=== PATIENT | male | born 1955 | race Caucasian/White ===

== ENCOUNTER 2018-08-23 23:26 | Emergency (ER) | payer OTHER ==
[~2018-08-23] VITALS: Ht 165.1 cm; Wt 86.2 kg
[~2018-08-23 23:26] MED LIST: ASPI325 PO; ASPI81CH PO; ATOR10 PO; ATOR40TA PO; ATOR80 PO; Amoxicillin500 M1 PO; CARV3.125 PO; CLAR500 PO; CLOP75 PO; FISH1000 PO; IBUP600 PO; LEVSOD50 PO; LISI5 PO; MEDICAL MARIJUANA; MEDICAL MARIJUANA INH; MILK THISTLE140 MG PO; PANT40 PO; PROP10 PO; PROP80ER PO
[2018-08-23 23:47] LABS: BASOPHILS ABSOLUTE AUTO 0.04 K/mm3 (0.00-0.23); BASOPHILS PERCENT AUTO 0 % (0-2); EOSINOPHILS ABSOLUTE AUTO 0.23 K/mm3 (0.00-0.68); EOSINOPHILS PERCENT AUTO 2 % (0-6); Hematocrit 53.3 % (37.0-53.0); Hemoglobin 17.2 g/dL (13.5-17.5); Mean Corpuscular HGB 28.6 pg (26.0-34.0); Mean Corpuscular HGB Conc 32.3 g/dL (31.5-36.5); Mean Corpuscular Volume 89 fL (80-100); Mean Platelet Volume 8.6 fL (9.1-12.4); Platelet Count 459 K/mm3 (150-400); RDW Coefficient Variation 14.8 % (11.7-14.2); RDW Standard Deviation 48.6 fL (35.1-46.3); Red Blood Cell Count 6.01 M/mm3 (4.30-5.90); White Blood Cell Count 11.28 K/mm3 (4.00-11.30)
[2018-08-23 23:49] LABS: IMMATURE GRAN ABSOLUTE AUTO 0.06 K/mm3 (0.00-0.10); IMMATURE GRAN PERCENT AUTO 1 % (0-1); LYMPHOCYTES PERCENT AUTO 36 % (21-46); MONOCYTES PERCENT AUTO 6 % (4-13); NEUTROPHILS ABSOLUTE AUTO 6.15 K/mm3 (1.96-9.15); NEUTROPHILS PERCENT AUTO 55 % (41-73)
[2018-08-24 00:07] LABS: Albumin, Blood 4.1 g/dL (3.4-5.0); Bilirubin, Total 0.5 mg/dL (0.1-1.0); Bun/Creatinine Ratio 16.8 (12.0-20.0); Calcium, Blood 8.5 mg/dL (8.5-10.1); Creatinine, Blood 1.31 mg/dL (0.60-1.20); Globulin, Blood 4.1 g/dL (2.2-4.0); Potassium, Blood 4.1 mmol/L (3.5-5.5); Total Protein, Blood 8.2 g/dL (6.4-8.2)
== END 2018-08-24 01:56 | disposition home or self-care (01) ==
LOC: ER 23:26
PROVIDERS: Emergency Medicine
DX: R10.11 Right upper quadrant pain (principal); Z91.030 Bee allergy status; Z88.5 Allergy status to narcotic agent; Z79.899 Other long term (current) drug therapy; Z79.82 Long term (current) use of aspirin; E03.9 Hypothyroidism, unspecified; I10 Essential (primary) hypertension; F17.200 Nicotine dependence, unspecified, uncomplicated
CPT/HCPCS: 74176; 80053; 83690; 85025; 99284-25

== ENCOUNTER 2018-08-28 22:56 | Emergency (ER) | payer OTHER ==
[~2018-08-28] VITALS: Ht 167.6 cm; Wt 74.8 kg
[2018-08-28 23:19] LABS: BASOPHILS ABSOLUTE AUTO 0.07 K/mm3 (0.00-0.23); BASOPHILS PERCENT AUTO 1 % (0-2); EOSINOPHILS ABSOLUTE AUTO 0.11 K/mm3 (0.00-0.68); EOSINOPHILS PERCENT AUTO 1 % (0-6); Hemoglobin 18.3 g/dL (13.5-17.5); IMMATURE GRAN ABSOLUTE AUTO 0.08 K/mm3 (0.00-0.10); IMMATURE GRAN PERCENT AUTO 1 % (0-1); LYMPHOCYTES ABSOLUTE AUTO 3.09 K/mm3 (0.84-5.20); LYMPHOCYTES PERCENT AUTO 24 % (21-46); MONOCYTES ABSOLUTE AUTO 0.81 K/mm3 (0.16-1.47); MONOCYTES PERCENT AUTO 6 % (4-13); Mean Corpuscular HGB 28.7 pg (26.0-34.0); Mean Corpuscular HGB Conc 33.9 g/dL (31.5-36.5); Mean Platelet Volume 9.1 fL (9.1-12.4); NEUTROPHILS ABSOLUTE AUTO 8.66 K/mm3 (1.96-9.15); NEUTROPHILS PERCENT AUTO 68 % (41-73); Platelet Count 503 K/mm3 (150-400); RDW Coefficient Variation 14.8 % (11.7-14.2); RDW Standard Deviation 45.1 fL (35.1-46.3); Red Blood Cell Count 6.37 M/mm3 (4.30-5.90); White Blood Cell Count 12.82 K/mm3 (4.00-11.30)
[2018-08-28 23:21] LABS: Mean Corpuscular Volume 85 fL (80-100)
[2018-08-28 23:35] LABS: Alanine Aminotransfer (ALT/SGP 24 U/L (12-78); Albumin, Blood 4.2 g/dL (3.4-5.0); Albumin/Globulin Ratio 1.1 (0.8-1.8); Alk Phos 140 U/L (50-136); Anion Gap 13 mmol/L (6-16); Aspartate Aminotrans (AST/SGOT 19 U/L (12-37); Bilirubin, Total 0.5 mg/dL (0.1-1.0); Blood Urea Nitrogen 29 mg/dL (8-24); Bun/Creatinine Ratio 19.2 (12.0-20.0); CO2, Blood 21 mmol/L (21-32); Calcium, Blood 8.9 mg/dL (8.5-10.1); Chloride, Blood 100 mmol/L (98-108); Creatinine, Blood 1.51 mg/dL (0.60-1.20); Globulin, Blood 3.7 g/dL (2.2-4.0); Glomerular Filtration Rate 50 (60-); Glucose, Blood 120 mg/dL (70-99); Potassium, Blood 3.5 mmol/L (3.5-5.5); Sodium, Blood 134 mmol/L (136-145); Total Protein, Blood 7.9 g/dL (6.4-8.2); Troponin I <0.015 ng/mL (0.000-0.040)
[2018-08-29] MEDS ORDERED: ONDA4ODT MM (00:23)
== END 2018-08-29 00:41 | disposition home or self-care (01) ==
LOC: ER 22:56
PROVIDERS: Physician Assistant
DX: K52.9 Noninfective gastroenteritis and colitis, unspecified (principal); Z91.030 Bee allergy status; Z88.5 Allergy status to narcotic agent; Z79.899 Other long term (current) drug therapy; Z79.82 Long term (current) use of aspirin; E03.9 Hypothyroidism, unspecified; I10 Essential (primary) hypertension; F17.200 Nicotine dependence, unspecified, uncomplicated
CPT/HCPCS: 36415; 80053; 83690; 84484; 85025; 93005; 93010; 96361; 96374; 96375; 99284-25; J1170; J2405; J2550; J7030

== ENCOUNTER 2018-11-10 06:59 | Inpatient (IN) | payer OTHER ==
[~2018-11-10] VITALS: Ht 165.1 cm; Wt 82.0 kg
[~2018-11-10 06:59] MED LIST changes: +FISH OIL; +LEVSOD112 PO; +MILK THISTLE; +ONDA4ODT MM; +VICODIN 5-3001 EACH PO
--- NOTE | 2018-11-10 09:09 | NUR ---
History, Chart, Medications and Allergies reviewed before start of procedure. Patient confirms NPO status and agrees with scheduled surgery. Patient States Post-Procedure ride home has been arranged.
--- NOTE | 2018-11-10 09:18 | NUR ---
BILAT HEARING AIDES AND RING PLACED IN BAGGY AND INTO PT PANT POCKET, ALL BELONGINGS UNDER GURNEY.
--- NOTE | 2018-11-10 09:30 | NUR ---
STUDENT NURSE WORKING WITH PATIENT, AGREE WITH HER CHARTING ON PATEINT.
--- NOTE | 2018-11-10 13:22 | NUR ---
1318 ASSUMED CARE FROM PACU/FRANCY JAMES RN. PT SLEEPY AFTER RECEIVING ATIVAN 1MG IVP PER ORDERS. PT AROUSABLE TO NAME. PT BROUGHT OVER TO STEP DOWN UNIT VIA [facility]. CONTINUE TO MONITOR AND DISCHARGE HOME WHEN STABLE. X4 ABD DRESSINGS WITH SOME SMALL AMT OF OOZING NOTED TO SITES. ABD SOFT TO PALPATE.
[2018-11-10 14:10] LABS: Hematocrit 36.5 % (37.0-53.0); Hemoglobin 11.5 g/dL (13.5-17.5)
--- NOTE | 2018-11-10 14:14 | NUR ---
PT SLEEPY BUT RESTLESS AT TIMES. RE-DIRECTS EASILY. NEW IV STARTED, LR BOLUS GIVEN. BP CONTINUE TO BE LOW, AWAITING FOR H/H RESULTS.
[2018-11-10 15:21] LABS: Hematocrit 31.7 % (37.0-53.0); Hemoglobin 9.9 g/dL (13.5-17.5)
--- NOTE | 2018-11-10 15:41 | NUR ---
[address] HODGE WITH H/H LAB RESULTS. NEW ORDERS TO CONTINUE WITH 1 LITER LR AND GIVE EPHEDRINE 12.5MG IVP FOR LOW BP. PT CONTINUES TO BE RESTLESS AT TIMES, THRASHING AROUND IN BED TO FIND A COMFORTABLE POSITION. CONTINUES TO HAVE RUQ PAIN AND INCREASES WITH MOVEMENT. 1440 DR HODGE AT BEDSIDE TO RE-EVALUATE PT. DR MENDEZ, ANESTHESIOLOGIST AT BEDSIDE. VERBAL ORDERS TO RE-DRAW H/H, TROPONIN AND EKG. WILL TRANSFER PT TO ICU AND AWAIT FOR LAB RESULTS. 1516 TRANSFER PT TO ICU 2 VIA [facility]. LAB RESULTS CALLED TO DR HODGE. PER DR HODGE, WILL TAKE PT BACK TO OR. OR STAFF NOTIFIED AND FOOD ASSEMBLER KITCHEN.
--- NOTE | 2018-11-10 16:25 | NUR ---
11/10/18 1625 Trent Burleson PT BROUGHT TO THE OR R/T RE-BLEED POST OP EMERGENCY. IV IN LT FA INFILTRATED. SECOND IV 18G WAS STARTED BY Brook BOSWELL CUT OFF WORKER IN RIGHT WRIST. PT WAS THRASHING ABOUT PRIOR TO DR SIERRA INTUBATING PT. PT DID NOT RECIEVED ANY PRE OP ANTIBIOTS AND THIS WAS CONFIRMED BY DR HODGE. STATING ANTIBIOTIS WERE NOT INDICATED.
--- NOTE | 2018-11-10 16:40 | NUR ---
ADMISSION NURSING SUMMARY PATIENT ADMITTED FROM PACU AT 1528 FOLLOWING LAP NORM W/4 LAP SITES. PATIENT CONFUSED, THRASHING, FOLLOWS COMMANDS INTERMITTENTLY. HYPOTENSIVE, BP 70'S/30'S, PACU GAVE LR 1L PRIOR TO ARRIVAL. STARTED NS BOLUS FOR 1L WITH PRESSURE BAG. H&H DROPPING. PATIENT TAKEN BACK TO SURGERY WITH DR. HODGE FOR SUSPECTED INTERNAL BLEEDING. PATIENT WAS IN ICU FOR 20 MINUTES BEFORE TAKEN BACK TO SURGERY.
--- NOTE | 2018-11-10 17:19 | NUR ---
Mother of patient, Matilda [phone], notified of patient being in ICU. Friend Norm also called [phone]. He will go by and talk to the mother and bring her to see patient tomorrow.
[2018-11-10 17:49] LABS: Hematocrit 24.5 % (37.0-53.0); Hemoglobin 7.3 g/dL (13.5-17.5); Mean Corpuscular HGB 28.6 pg (26.0-34.0); Mean Corpuscular HGB Conc 29.8 g/dL (31.5-36.5); Mean Platelet Volume 9.1 fL (9.1-12.4); Platelet Count 252 K/mm3 (150-400); RDW Coefficient Variation 16.1 % (11.7-14.2); RDW Standard Deviation 56.7 fL (35.1-46.3); Red Blood Cell Count 2.55 M/mm3 (4.30-5.90); White Blood Cell Count 19.59 K/mm3 (4.00-11.30)
[2018-11-10 17:52] LABS: Mean Corpuscular Volume 96 fL (80-100)
--- NOTE | 2018-11-10 18:09 | NUR ---
DR. BAKER AT BEDSIDE FOR EVALUATION.
[2018-11-10 18:10] LABS: BAND PERCENT MAN 21 % (0-8); BASOPHILS ABSOLUTE MAN 0.19 K/mm3 (0.00-0.23); BASOPHILS PERCENT MAN 1 % (0-2); EOSINOPHILS PERCENT MAN 0 % (0-6); LYMPHOCYTES ABSOLUTE MAN 0.78 K/mm3 (0.84-5.20); LYMPHOCYTES PERCENT MAN 4 % (21-46); MONOCYTES ABSOLUTE MAN 1.56 K/mm3 (0.16-1.47); MONOCYTES PERCENT MAN 8 % (4-13); NEUTROPHILS ABSOLUTE MAN 17.04 K/mm3 (1.96-9.15); SEG NEUTROPHILS PERCENT MAN 66 % (41-73); TOTAL CELLS COUNTED 100
--- NOTE | 2018-11-10 18:31 | NUR ---
CALLED DR. HODGE RE: HIGH BREANNE OUTPUT = 420 BLOOD DRAINAGE SINCE ARRIVAL TO ICU AT 1650. NO NEW ORDERS AT THIS TIME. 2ND UNIT OF PRBC'S STARTED AT 150 ML/HR. VSS. PROPOFOL STARTED. OG PLACED AND CONFIRMED. AWAITING CXR FOR INTUBATION TUBE AND OG PLACEMENT CONFIRMATION.
--- NOTE | 2018-11-10 19:57 | NUR ---
UPDATE TO BOTH CANDY HODGE AND OLIVIA PT BLOOD LOSS FROM BREANNE AT 90ML Q 2-3 MINUTES, DRS UPDATED ON BLOOD LOSS AND HYPOTENSION. ORDERS FOR ADDITIONAL BLOOD PRODUCTS OBTAINED. PER DR HODGE, REPORTS PT TOOK PLAVIX THIS AM AND THAT IS THE CAUSE OF THE BLEEDING. SEE ORDERS.
[2018-11-10 20:13] LABS: Hematocrit 37.1 % (37.0-53.0); Hemoglobin 11.8 g/dL (13.5-17.5); Mean Corpuscular HGB 29.8 pg (26.0-34.0); Mean Corpuscular HGB Conc 31.8 g/dL (31.5-36.5); Mean Corpuscular Volume 94 fL (80-100); Mean Platelet Volume 9.2 fL (9.1-12.4); Platelet Count 263 K/mm3 (150-400); RDW Coefficient Variation 15.6 % (11.7-14.2); RDW Standard Deviation 53.4 fL (35.1-46.3); Red Blood Cell Count 3.96 M/mm3 (4.30-5.90); White Blood Cell Count 22.56 K/mm3 (4.00-11.30)
[2018-11-10 20:32] LABS: BAND PERCENT MAN 12 % (0-8); BASOPHILS PERCENT MAN 0 % (0-2); EOSINOPHILS PERCENT MAN 0 % (0-6); LYMPHOCYTES ABSOLUTE MAN 0.67 K/mm3 (0.84-5.20); LYMPHOCYTES PERCENT MAN 3 % (21-46); MONOCYTES ABSOLUTE MAN 0.45 K/mm3 (0.16-1.47); MONOCYTES PERCENT MAN 2 % (4-13); NEUTROPHILS ABSOLUTE MAN 21.43 K/mm3 (1.96-9.15); SEG NEUTROPHILS PERCENT MAN 83 % (41-73); TOTAL CELLS COUNTED 100
[2018-11-10 21:09] LABS: PCO2 Arterial 40.7 mmHg (35-45); PO2 Arterial 104 mmHg (80-100); pH Blood Arterial 7.27 (7.35-7.45)
--- NOTE | 2018-11-10 22:33 | NUR ---
ASSUMED CARE PT ON VENT AC 14, VT 500, PEEP 4.5, AND FIO2 30%. CURRENT GTTS; 150ML/HR, PROPOFOL AT 10MCG/KG/MIN, AND 2ND UNIT OF PRBC INFUSING. PT WAS HEMODYNAMICALLY UNSTABLE DUE TO INCREASED BLEEDING FROM BREANNE; CURRENTLY AT 855ML OUT OF BRIGHT RED BLOOD. XOCHITL GARCIA ON PHONE TO DR. HODGE AND WILL UPDATE DR. BAKER.
--- NOTE | 2018-11-10 22:43 | NUR ---
UPDATE PT IS ON 4TH UNIT OF PRBC, AND HAS HAD 1 FFP, AND 1 PLATLET. CURRENT GTTS: PROPOFOL AT 20MCG/KG/MIN, PRECEDEX ADDED AT 0.2 AND CURRENTLY AT 0.4, ZOYSYN RUNNING, 2ND ALBUMIN AT 100ML/HR, AND NS AT 150ML/HR. TOTAL DRAINAGE FROM BREANNE SINCE ARRIVAL TO ICU FROM OR 1165ML OF BRIGHT RED BLOOD. PT IS CURRENTLY SAS OF 3. PT IS ON VENT AC 12, VT 500ML, PEEP 5, AND FIO2 30%.
[2018-11-11 01:31] LABS: BASOPHILS PERCENT AUTO 0 % (0-2); EOSINOPHILS PERCENT AUTO 0 % (0-6); Hematocrit 29.6 % (37.0-53.0); Hemoglobin 9.7 g/dL (13.5-17.5); IMMATURE GRAN ABSOLUTE AUTO 0.08 K/mm3 (0.00-0.10); IMMATURE GRAN PERCENT AUTO 1 % (0-1); LYMPHOCYTES PERCENT AUTO 4 % (21-46); MONOCYTES ABSOLUTE AUTO 0.59 K/mm3 (0.16-1.47); MONOCYTES PERCENT AUTO 4 % (4-13); Mean Corpuscular HGB Conc 32.8 g/dL (31.5-36.5); Mean Corpuscular Volume 92 fL (80-100); Mean Platelet Volume 9.3 fL (9.1-12.4); NEUTROPHILS ABSOLUTE AUTO 12.69 K/mm3 (1.96-9.15); NEUTROPHILS PERCENT AUTO 92 % (41-73); Platelet Count 193 K/mm3 (150-400); RDW Coefficient Variation 15.5 % (11.7-14.2); RDW Standard Deviation 52.3 fL (35.1-46.3); Red Blood Cell Count 3.23 M/mm3 (4.30-5.90); White Blood Cell Count 13.86 K/mm3 (4.00-11.30)
[2018-11-11 03:52] LABS: BASOPHILS ABSOLUTE AUTO 0.01 K/mm3 (0.00-0.23); BASOPHILS PERCENT AUTO 0 % (0-2); EOSINOPHILS PERCENT AUTO 0 % (0-6); Hematocrit 29.8 % (37.0-53.0); Hemoglobin 9.9 g/dL (13.5-17.5); IMMATURE GRAN ABSOLUTE AUTO 0.04 K/mm3 (0.00-0.10); IMMATURE GRAN PERCENT AUTO 0 % (0-1); LYMPHOCYTES ABSOLUTE AUTO 0.56 K/mm3 (0.84-5.20); LYMPHOCYTES PERCENT AUTO 4 % (21-46); MONOCYTES ABSOLUTE AUTO 0.59 K/mm3 (0.16-1.47); MONOCYTES PERCENT AUTO 4 % (4-13); Mean Corpuscular HGB 30.5 pg (26.0-34.0); Mean Corpuscular HGB Conc 33.2 g/dL (31.5-36.5); Mean Corpuscular Volume 92 fL (80-100); Mean Platelet Volume 9.4 fL (9.1-12.4); NEUTROPHILS ABSOLUTE AUTO 12.21 K/mm3 (1.96-9.15); NEUTROPHILS PERCENT AUTO 91 % (41-73); Platelet Count 188 K/mm3 (150-400); RDW Coefficient Variation 15.6 % (11.7-14.2); RDW Standard Deviation 52.1 fL (35.1-46.3); Red Blood Cell Count 3.25 M/mm3 (4.30-5.90); White Blood Cell Count 13.41 K/mm3 (4.00-11.30)
[2018-11-11 04:25] LABS: Alanine Aminotransfer (ALT/SGP 147 U/L (12-78); Albumin/Globulin Ratio 1.5 (0.8-1.8); Alk Phos 96 U/L (50-136); Anion Gap 7 mmol/L (6-16); Aspartate Aminotrans (AST/SGOT 123 U/L (12-37); Bilirubin, Total 1.4 mg/dL (0.1-1.0); Blood Urea Nitrogen 22 mg/dL (8-24); Bun/Creatinine Ratio 19.6 (12.0-20.0); CO2, Blood 22 mmol/L (21-32); Chloride, Blood 113 mmol/L (98-108); Creatinine, Blood 1.12 mg/dL (0.60-1.20); Glomerular Filtration Rate >60 (60-); Glucose, Blood 136 mg/dL (70-99); Potassium, Blood 4.8 mmol/L (3.5-5.5); Sodium, Blood 142 mmol/L (136-145); Troponin I 0.017 ng/mL (0.000-0.040)
[2018-11-11 04:56] LABS: Calcium, Blood 6.6 mg/dL (8.5-10.1)
--- NOTE | 2018-11-11 06:35 | NUR ---
SHIFT SUMMARY PT IS ON VENT AC 14, VT 500, PEEP 5, AND FIO2 30%. CURRENT GTTS: PROPOFOL 25MCG/KG/MIN, PRECEDEX 0.7MCG/KG/MIN, NS 150ML/HR, AND ZOSYN AND CALCIUM CHLORIDE IS INFUSING. DUE TO PT AGITATION SEDATION MAINTAINED THROUGHOUT NIGHT, BUT WOULD OCCASIONALLY NOD IN RESPONSE TO QUESTION REGARDING PAIN. BREANNE IN RIGHT ABDOMEN HAS HAD CONTINUOUS CR BLOOD OUTPUT, BUT HAS DECREASED SHIFT PROGRESSED. DR BAKER UPDATED THIS MORNING ON LABS, BREANNE OUTPUT, AND VITALS.
--- NOTE | 2018-11-11 08:59 | NUR ---
PT SEDATED ON PROPOFOL 20MCG AND PRECEDEX 0.7MCG FOR MECH VENT S/P ABD SURGERY. PT THRASHES W SEVERE AGITATION WITH ANY NOXIOUS STIMULI (REMOVING PILLOW, ORAL CARE, TURNS). PROPOFOL INCREASED TO 30MCG. 70CC CR RED BLOOD EMPTIED FROM BREANNE AT 0730. ABD SOFT, DISTENDED WITH HYPOACTIVE BT'S T/O. OG TO LIS, SOME GREEN BILE OUTPUT. DR BAKER IN THIS AM, PICC TO BE PLACED.
[2018-11-11 09:20] LABS: Hematocrit 28.3 % (37.0-53.0); Hemoglobin 9.5 g/dL (13.5-17.5)
[2018-11-11 09:39] LABS: Anion Gap 8 mmol/L (6-16); Blood Urea Nitrogen 21 mg/dL (8-24); Bun/Creatinine Ratio 21.6 (12.0-20.0); CO2, Blood 20 mmol/L (21-32); Calcium, Blood 6.8 mg/dL (8.5-10.1); Chloride, Blood 115 mmol/L (98-108); Creatinine, Blood 0.97 mg/dL (0.60-1.20); Glomerular Filtration Rate >60 (60-); Glucose, Blood 119 mg/dL (70-99); Potassium, Blood 4.6 mmol/L (3.5-5.5); Sodium, Blood 143 mmol/L (136-145)
--- NOTE | 2018-11-11 10:12 | NUR ---
PT AROUSES, EYES CLOSED, VERY RESTLESS, AGITATED. PT CALMED TO VERBAL DIRECTION AND NODS HEAD YES TO PAIN. WILL MEDICATE FOR PAIN, YOLIE CLOR TO BE GIVEN IV. PICC TO BE PLACED. H&H STABLE, ALTHOUGH ANOTHER 75CC OF CR BLOOD TO BREANNE DRAIN.
--- NOTE | 2018-11-11 10:20 | NUR ---
11/11/18 1020 Valerie Garcia VERIFICATIONS: EDIT CHART.
--- NOTE | 2018-11-11 11:49 | NUR ---
PROPOFOL OFF. PT AWAKE SLIGHTLY RESTLESS, FAMILY AT BEDSIDE. HEART RATE 130, TEMP 100.0, REPORT GIVEN TO DR BAKER, ANOTHER DOSE OF LOPRESSOR ORDERED, PRECEDEX TO BE STARTED
--- NOTE | 2018-11-11 13:43 | NUR ---
DR HODGE IN TO SEE PT, NOTIFIED OF BREANNE OUTPUT AND CONTENT OF BLOOD; NO URINE OUT SINCE THIS AM, DR BAKER AWARE OF THIS WELL. 500CC NS BOLUS STARTED.
--- NOTE | 2018-11-11 13:53 | NUR ---
PT SEVERELY AGITATED, THRASHING IN BED, KICKING ARMS AND LEGS WILDLY, SITTING UP IN BED, THRASHING HEAD FROM SIDE TO SIDE. EYES CLOSED, UNABLE TO FOLLOW COMMANDS, NOT REDIRECTABLE. VERSED 2MG GIVEN, ALONG WITH DILAUDID 1MG IVP. PT'S IS NOW PRODUCING URINE WITH NS BOLUS
--- NOTE | 2018-11-11 14:54 | NUR ---
LR AT 200C/HR PER DR BAKER. PT CONTINUES TO HAVE IMPROVED URINE OUTPUT. PT TO BE MOVED TO ICU THERA. BED/ TO ROOM 7
[2018-11-11 15:08] LABS: U Amphetamine Screen DETECTED; U Barbituate Screen Not Detected; U Benzodiazapine Screen DETECTED; U Cocaine Screen Not Detected; U Methamphetamine Screen DETECTED; U Opiates Screen DETECTED
[2018-11-11 15:09] LABS: U Buprenorphine Screen Not Detected; U Cannabinoids Screen DETECTED; U Methadone Screen Not Detected; U Oxycodone Screen Not Detected; U Phencyclidine Screen Not Detected; U Propoxyphene Screen Not Detected
--- NOTE | 2018-11-11 15:30 | NUR ---
PT TRANSFERED TO ICU 7 W/O DIFFICULTY. DR HODGE/DR BAKER AWARE OF POS TOX SCREEN RESULTS OG TO LIS, BREANNE CONT TO DRAIN BRIGHT RED BLOOD
[2018-11-11 15:57] LABS: Hematocrit 26.1 % (37.0-53.0); Hemoglobin 8.7 g/dL (13.5-17.5)
--- NOTE | 2018-11-11 18:41 | NUR ---
U/S TECH INFORMED ME THAT PT HAD APPROX 700CC IN BLADDER AND THAT SHE WAS UNABLE TO VISUALIZE CATHETER. 10CC SYRINGE USED TO PULL BACK WATER FROM BALLOON TO CHECK PLACEMENT; NO WATER WAS ASPIRATED. CATHETER PULLED OUT WITHOUT ANY RESISTANCE. NEW 16F DOMINGO TEMP CATH PLACED W/O DIFF. 750CC URINE TO DOMINGO BAG OVER 15MIN. IT APPEARS THAT THE CATHETER WAS RESTING IN THE URETHRA, THERE WAS NO URINE ON LINEN, URINE HAD BEEN FLOWING TO THE DOMINGO BAG AT A SLOW BUT ACCEPTABLE RATE AFTER BOLUS GIVEN, DR BAKER NOTIFIED.
--- NOTE | 2018-11-11 19:15 | NUR ---
ASSUMED CARE PT REMAINS INTUBATED, CURRENT VENT SETTINGS OF AC14/500/25%/5, SEDATION VIA PROPOFOL AT 50MCG/KG/MIN AND PRECEDEX AT 0.7MCG/KG/HR. LR AT 150ML/HR. PT RESONDS TO ANY STIMULI WITH DANGEROUS AGITATION; PT KICKS FEET, ATTEMPTS TO SIT UP AND SHAKES HEAD. BP STABLE, PLAN TO RECHECK H&H AT MIDNIGHT. PICC PLACED TODAY TO [facility].
--- NOTE | 2018-11-11 19:33 | NUR ---
ASSUMED CARE PT REMAINS INTUBATED ON VENT AC 12, VT 500, PEEP 5, FIO2 25%. CURRENT GTTS: PROPOFOL 50MCG/KG/MIN, PRECEDEX 0.7MCG/KG/HR, LR 200ML/HR, AND NS TKO. PT IS HAS ADEQUATE URINE IN DOMINGO BAG, AND MINIMAL SEROSANG. DRAINAGE IN BREANNE. PT HAS A SAS OF 2-3 AND A CNVI OF 0.
--- NOTE | 2018-11-11 19:35 | NUR ---
DOMINGO TEMP PROBE CATH PLACED AND SHOWED PT TO HYPOTHERMIC, WARM BLANKETS APPLIED, FULL REPORT GIVEN TO ONCOMING RN.
[2018-11-11 23:53] LABS: Hematocrit 26.5 % (37.0-53.0); Hemoglobin 8.8 g/dL (13.5-17.5)
[2018-11-12 03:23] LABS: BASOPHILS ABSOLUTE AUTO 0.03 K/mm3 (0.00-0.23); BASOPHILS PERCENT AUTO 0 % (0-2); EOSINOPHILS ABSOLUTE AUTO 0.06 K/mm3 (0.00-0.68); EOSINOPHILS PERCENT AUTO 1 % (0-6); Hematocrit 28.1 % (37.0-53.0); Hemoglobin 9.1 g/dL (13.5-17.5); IMMATURE GRAN ABSOLUTE AUTO 0.06 K/mm3 (0.00-0.10); IMMATURE GRAN PERCENT AUTO 1 % (0-1); LYMPHOCYTES ABSOLUTE AUTO 1.95 K/mm3 (0.84-5.20); LYMPHOCYTES PERCENT AUTO 17 % (21-46); MONOCYTES ABSOLUTE AUTO 0.53 K/mm3 (0.16-1.47); MONOCYTES PERCENT AUTO 5 % (4-13); Mean Corpuscular HGB 30.3 pg (26.0-34.0); Mean Corpuscular HGB Conc 32.4 g/dL (31.5-36.5); Mean Corpuscular Volume 94 fL (80-100); Mean Platelet Volume 9.9 fL (9.1-12.4); NEUTROPHILS ABSOLUTE AUTO 9.03 K/mm3 (1.96-9.15); NEUTROPHILS PERCENT AUTO 78 % (41-73); Platelet Count 178 K/mm3 (150-400); RDW Coefficient Variation 16.7 % (11.7-14.2); RDW Standard Deviation 56.9 fL (35.1-46.3); White Blood Cell Count 11.66 K/mm3 (4.00-11.30)
[2018-11-12 03:38] LABS: Albumin, Blood 3.1 g/dL (3.4-5.0); Anion Gap 4 mmol/L (6-16); Blood Urea Nitrogen 15 mg/dL (8-24); Bun/Creatinine Ratio 15.7 (12.0-20.0); CO2, Blood 25 mmol/L (21-32); Calcium, Blood 7.7 mg/dL (8.5-10.1); Chloride, Blood 116 mmol/L (98-108); Creatinine, Blood 0.96 mg/dL (0.60-1.20); Glomerular Filtration Rate >60 (60-); Glucose, Blood 105 mg/dL (70-99); Phosphorus, Blood 2.6 mg/dL (2.5-4.9); Potassium, Blood 4.4 mmol/L (3.5-5.5); Sodium, Blood 145 mmol/L (136-145)
--- NOTE | 2018-11-12 06:24 | NUR ---
SHIFT SUMMARY PT REMAINS ON VENT AC14, VT 500, FIO2 25%, AND PEEP 5. CURRENT GTTS: PRECEDEX 0.7MCG/KG/HR AND PROPOFOL 50MCG/KG/MIN. BREANNE HAS CONTINOUS OUTPUT OF SEROSANGUINOUS DRAINAGE. NO SBT PERFORMED DUE TO AGITATION WHEN OFF SEDATION. NO SIGNIFICANT EVENTS, OTHERWISE.
--- NOTE | 2018-11-12 10:00 | NUR ---
ASSUMED CARE: REPORT RECEIVED FROM PIETER Geronimo RN. ASSUMED CARE OF THIS PT AT APPROX 0700. ON ASSESSMENT, THE PT IS RESTING QUIETLY. HE BECOMES INCREASINGLY ANXIOUS W/ ANY STIMULUS OR CARE PROVIDED. MEDS FOR SEDATION ADJUNCT/PAIN PER EMAR. PT INTUBATED/SEDATED, VENT SETTINGS: AC 14, TV 500, PEEP 5 & FiO2 25%. PROPOFOL & PRECEDEX FOR SEDATION, TITRATION ON FLOWSHEET. ALL DRESSINGS TO ABD LAP SITES ARE CDI. BREANNE TO RLQ W/ COPIOUS AMNTS OF SANGUINOUS DRAINAGE. TEMP DOMINGO PATENT/DRAINING. PLAN IS TO START TRICKLE FEEDS THIS SHIFT, PER DR. BAKER. DIETARY HAS BEEN CONSULTED. WILL CONTINUE TO MONITOR & UPDATE NEEDED.
--- NOTE | 2018-11-12 16:39 | NUR ---
SHIFT SUMMARY: NO ACUTE CHANGE THIS SHIFT. PT REMAINS INTUBATED/SEDATED. HE CONTINUES TO BE VERY ANXIOUS W/ ANY STIMULI, SHAKING HEAD & CHEWING ON ETT. BILAT SOFT WRIST RESTRAINTS IN PLACE. LS ARE CLEAR T/O, DIM IN BASES. VENT SETTINGS: AC 14, TV 500, PEEP 5 & FiO2 25%, O2 SATS > 92%. MONITOR SHOWS SINUS NUSRAT W/ HR 55-60 ON AVG. PRECEDEX & PROPOFOL INFUSING FOR SEDATION/COMFORT, TITRATION DOC IN FLOWSHEET. ABD MILDLY DISTENDED & BT REMAIN HYPOACTIVE x4, ALTHOUGH INCREASED SLIGHTLY SINCE TF STARTED. TF INFUSING AT GOAL OF 10 ML/HR W/ HIGH RESIDUAL REINSTILLED CHARTED. BREANNE TO RLQ W/ COPIOUS AMNTS OF SANGUINOUS DRAINAGE, MORE SEROSANGUINOUS THIS AFTERNOON. TEMP DOMINGO PATENT/DRAINING CLEAR YELLOW URINE. SKIN OVERALL CDI, LAP SITE DRESSINGS TO ABD ARE CDI. WILL CONTINUE TO MONITOR & REPORT OFF TO ONCOMING RN.
[2018-11-12 20:22] LABS: Hemoglobin 8.8 g/dL (13.5-17.5)
--- NOTE | 2018-11-12 21:39 | NUR ---
ASSUMING CARE RECEIVED PT REPORT FROM TERESSA LAWRENCE IN ICU. PT IS INTUBATED POST ABD SURGERY FOR LAP NORM. PT VENT SETTINGS AT THIS TIME ARE AC 14, TV 500, FIO2 25% AND PEEP 5. PT SPO2 IS IN THE MID TO HIGH 90'S. PT LUNG SOUNDS ARE CLEAR THROUGHOUT BUT DIM IN THE BASES. PT IS RECEIVING PROPOFOL AT 55MCG/KG/MIN AND PREXEDEX AT 0.7 MCG/KG/HR. PT APPEARS TO BE RESTING COMFORTABLY BUT BECOMES HIGHLY AGITATED WITH ANY STIMULUS. PT IS RESTRAINED AT THIS TIME TO PREVENT SELF EXTUBATION. PT IS A HIGH SELF EXTUBATION RISK AT THIS TIME. PT HR IS IN THE MID 50'S, BP S STABLE IN THE 110'S AT THIS TIME PT IS RECEIVING NS AT TKO AND LR AT 150ML/HR. PT HAS BANDAGE IN PLACE TO RT ABDOMEN, SOME LEAKAGE AT BREANNE INSERTION SITE NOTED AT THE TIME OF SHIFT REPROT AND BANDAGE WAS REINFORCED BY DAY SHIFT RN'S AT THAT TIME. BANDAGE IS CDI AT THIS TIME. PT HAS BREANNE DRAIN IN PLACE THAT IS DRAINING COPIOUS SANGUINOUS DRAINAG AT THIS ITME. PT HAS DOMINGO TEMP PROBE IN PLACE. PT URINE IS CLEAR AND YELLOW AT THIS TIME. PT IS AFEBRILE AT THIS TIME. ASSUMING CARE OF PT AT THE TIME OF SHIFT REPORT. WILL CONTINUE TO MONITOR PT.
[2018-11-13 03:36] LABS: BASOPHILS ABSOLUTE AUTO 0.04 K/mm3 (0.00-0.23); BASOPHILS PERCENT AUTO 0 % (0-2); EOSINOPHILS ABSOLUTE AUTO 0.15 K/mm3 (0.00-0.68); EOSINOPHILS PERCENT AUTO 2 % (0-6); Hematocrit 27.5 % (37.0-53.0); Hemoglobin 8.8 g/dL (13.5-17.5); IMMATURE GRAN ABSOLUTE AUTO 0.06 K/mm3 (0.00-0.10); IMMATURE GRAN PERCENT AUTO 1 % (0-1); LYMPHOCYTES ABSOLUTE AUTO 2.17 K/mm3 (0.84-5.20); LYMPHOCYTES PERCENT AUTO 23 % (21-46); MONOCYTES ABSOLUTE AUTO 0.42 K/mm3 (0.16-1.47); MONOCYTES PERCENT AUTO 4 % (4-13); Mean Corpuscular Volume 94 fL (80-100); NEUTROPHILS ABSOLUTE AUTO 6.73 K/mm3 (1.96-9.15); NEUTROPHILS PERCENT AUTO 70 % (41-73); Platelet Count 183 K/mm3 (150-400); RDW Coefficient Variation 16.5 % (11.7-14.2); RDW Standard Deviation 56.4 fL (35.1-46.3); Red Blood Cell Count 2.93 M/mm3 (4.30-5.90); White Blood Cell Count 9.57 K/mm3 (4.00-11.30)
[2018-11-13 03:52] LABS: Albumin, Blood 2.7 g/dL (3.4-5.0); Anion Gap 4 mmol/L (6-16); Blood Urea Nitrogen 11 mg/dL (8-24); Bun/Creatinine Ratio 13.4 (12.0-20.0); CO2, Blood 27 mmol/L (21-32); Calcium, Blood 7.8 mg/dL (8.5-10.1); Chloride, Blood 117 mmol/L (98-108); Creatinine, Blood 0.82 mg/dL (0.60-1.20); Glomerular Filtration Rate >60 (60-); Glucose, Blood 94 mg/dL (70-99); Magnesium, Blood 2.1 mg/dL (1.6-2.4); Phosphorus, Blood 2.2 mg/dL (2.5-4.9); Potassium, Blood 3.8 mmol/L (3.5-5.5); Sodium, Blood 148 mmol/L (136-145)
--- NOTE | 2018-11-13 05:57 | NUR ---
SHIFT SUMMARY NOTE PT REMAINS INTUBATED AND SEDATED AT THIS TIME. PT CONTINUES TO BECOME AGITATED WITH STIMULI. PT SEDATION VACATION WAS INITIATED AT APPROX 0500 AND PT HAD TO BE RESEDATED AT APPROX 0515 DUE TO AGITATION. THROUGH SEDATION VACATION AND WEAN TRIAL, PT WAS NOT ABLE TO FOLLOW ANY COMMANDS OR TRACK WITH EYES. PT THRASHED HEAD BACK AND FORTH AND APPEARED TO BE ATTEMPTING TO REMOVE ETT TUBE WITH TONGUE. PT IS RECEIVING PRECEDEX AT 0.7MCG/KG/HR AND PROPOFOL AT 65MCG/KG/MIN. PT CONTINUES TO HAVE DOMINGO TEMP PROBE IN PLACE. PT HAS REMAINED AFEBRILE THROUGH THE NIGHT. PT HAD APPROX 1650ML OF URINE OUTPUT OVERNIGHT. PT URINE IS CLEAR AND YELLOW/GREEN. PT HAS HAD A LARGE AMOUNT OF DRAINAGE FROM BREANNE DRAIN OVERNIGHT. DRAINAGE REMAINS SANGUINOUS. DRESSING REMAINS IN PLACE TO BREANNE INSERTION SITE AND SURGICAL SITE. SOME DRAINAGE SHADOWING NOTED, BUT BANDAGE IS OTHERWISE CDI. PT VENT SETTINGS HAVE REMAINED UNCHANGED OVERNIGHT AND ARE AT AC 14, TV 500, PEEP 5, AND FIO2 25%. PT SPO2 IS MAINTAINING IN THE HIGH 90'S. PT CONTIONUES TO RECEIVE TUBE FEEDING AT GOAL RATE OF 10ML/HR. PT HAS HAD MINIMAL RESIDUALS OVERNIGHT. WILL REPORT OFF TO [facility] DAY SHIFT NURSE.
--- NOTE | 2018-11-13 07:26 | NUR ---
ASSUMED CARE: REPORT RECEIVED FROM RABIA Denise RN. ASSUMED CARE OF THIS PT AT APPROX 0700. ON ASSESSMENT, THE PT IS RESTING QUIETLY & APPEARS COMFORTABLE. ASSESSMENT CHARTED. PROPOFOL & PRECEDEX INFUSING FOR SEDATION, TITRATION DOC IN FLOWSHEET. BILAT SOFT WRIST RESTRAINTS IN PLACE. VENT SETTINGS: AC 14, TV 500, PEEP 5 & FiO2 25%. WILL CONTINUE TO MONITOR & UPDATE NEEDED.
--- NOTE | 2018-11-13 10:00 | NUR ---
DR. BAKER: PROVIDER AT BEDSIDE TO SEE PT. POC DISCUSSED. KPHOS ORDERED FOR LOW PHOS LEVEL THIS AM & LASIX ORDERED FOR POSITIVE FLUID BALACE & DEVELOPMENT OF GENERALIZED EDEMA TO EXTREMITIES. WILL CONTNUE TO MONITOR & UPDATE NEEDED.
--- NOTE | 2018-11-13 17:38 | NUR ---
SHIFT SUMMARY: NO ACUTE CHANGES THIS SHIFT. PT REMAINS INTUBATED/SEDATED. ATTEMPTS TO TITRATE SEDATION DOWN THIS SHIFT WERE UNSUCCESSFUL W/ PT BECOMING INCREASINGLY RESTLESS & AGITATED. DURING THAT TIME, HE WAS OPENING EYES BUT NOT FOLLOWING COMMANDS OR TRACKING W/ EYES. BILAT SOFT WRIST RESTRAINTS IN PLACE. LS ARE CLEAR T/O, DIM IN BASES. VENT SETTINGS UNCHANGED: AC 14, TV 400, PEEP 5 & FiO2 25%. MONITOR SHOWS SB-SR W/ HR 50-60s. ABD SLIGHTLY DISTENDED, BT NORMOACTIVE. BREANNE OUTPUT HAS DECREASED. VITAL HP INFUSING AT GOAL OF 10 ML/HR, RESIDUALS DECREASED. DRESSING TO BREANNE HAS BEEN REINFORCED THIS AFTERNOON & ABD PADS APPLIED TO ABSORB LEAKING AROUND BREANNE INSERTION SITE. STERI STRIPS TO LAP SITES ON ABD REMAIN INTACT. TEMP DOMINGO PATENT/DRAINING CLEAR, GREEN URINE. PT HAS DIURESED WELL THIS SHIFT W/ 3400 ML OUT. WILL CONTINUE TO MONITOR & REPORT OFF TO ONCOMING RN.
--- NOTE | 2018-11-13 22:42 | NUR ---
ASSUMING CARE RECEIVED PT REPORT FROM Wale LAWRENCE AND TERESSA BAUMAN. PT IS INTUBATED AND SEDATED AT THIS ITME. PT VENT SETTINGS ARE AC 14, TV 500, FIO2 25%, AND PEEP 5. PT IS RECEIVING PROPOFOL AND PRECEDEX FOR SEDATION. PT IS RECEIVING PROPOFOL AT 55MCG/KG/MIN AT THE TIME OF SHIFT REPORT. PROPOFOL TITRATED DOWN TO 50MCG/KG/MIN AT THE TIME OF SHIFT REPROT. PRECEDEX IS RUNNING AT 0.7MCG/KG/HR. PT LUNG SOUNDS EXHIBIT INSPIRATORY WHEEZES. PT IS HAVING SMALL AMOUNTS OF CLEAR THIN SECRETIONS. PT HAS BREANNE DRAIN IN PLACE TO RIGHT ABDOMEN. PT CONTINUES TO HAVE SANGUINOUS DRAINAGE FROM BREANNE DRAIN BUT IT APPEARS TO BE LIGHTENING. PT IS HAVING LESS OUTPUT FROM BREANNE DRAIN THAN ON PREVIOUS SHIFT OF CARE. PT HAS BANDAGE IN PLACE TO RIGHT ABDOMEN OVER BREANNE INSERTION SITE AND SURGICAL SITE. SOME DRAINAGE NOTED TO BANDAGE, OTHERWISE BANDAGE IS CDI AT THIS TIME. PT IS RECEIVING TUBE FEED OF VITAL HIGH PROTEIN AT GOAL RATE OF 10ML/HR. PT HAS APPROX 60ML RESIDUALS AT THIS TIME. PT HAS DOMINGO TEMP PROBE IN PLACE, CURRENTLY DRAINING TO GRAVITY. PT URINE IS CLEAR AND GREEN TINGED AT THIS TIME. ASSUMING CARE OF PT AT THE TIME OF SHIFT REPORT. WILL CONTINUE TO MONITOR PT.
[2018-11-14 04:14] LABS: BASOPHILS ABSOLUTE AUTO 0.01 K/mm3 (0.00-0.23); BASOPHILS PERCENT AUTO 0 % (0-2); EOSINOPHILS ABSOLUTE AUTO 0.24 K/mm3 (0.00-0.68); EOSINOPHILS PERCENT AUTO 3 % (0-6); Hematocrit 27.7 % (37.0-53.0); IMMATURE GRAN ABSOLUTE AUTO 0.07 K/mm3 (0.00-0.10); IMMATURE GRAN PERCENT AUTO 1 % (0-1); LYMPHOCYTES ABSOLUTE AUTO 1.96 K/mm3 (0.84-5.20); LYMPHOCYTES PERCENT AUTO 20 % (21-46); MONOCYTES ABSOLUTE AUTO 0.42 K/mm3 (0.16-1.47); MONOCYTES PERCENT AUTO 4 % (4-13); Mean Corpuscular HGB 30.2 pg (26.0-34.0); Mean Corpuscular HGB Conc 32.5 g/dL (31.5-36.5); Mean Corpuscular Volume 93 fL (80-100); NEUTROPHILS ABSOLUTE AUTO 6.89 K/mm3 (1.96-9.15); NEUTROPHILS PERCENT AUTO 72 % (41-73); Platelet Count 208 K/mm3 (150-400); RDW Coefficient Variation 16.3 % (11.7-14.2); RDW Standard Deviation 55.1 fL (35.1-46.3); Red Blood Cell Count 2.98 M/mm3 (4.30-5.90); White Blood Cell Count 9.59 K/mm3 (4.00-11.30)
[2018-11-14 04:32] LABS: Albumin, Blood 2.5 g/dL (3.4-5.0); Anion Gap 6 mmol/L (6-16); Blood Urea Nitrogen 10 mg/dL (8-24); Bun/Creatinine Ratio 11.5 (12.0-20.0); CO2, Blood 27 mmol/L (21-32); Calcium, Blood 7.6 mg/dL (8.5-10.1); Chloride, Blood 115 mmol/L (98-108); Creatinine, Blood 0.87 mg/dL (0.60-1.20); Glomerular Filtration Rate >60 (60-); Glucose, Blood 109 mg/dL (70-99); Phosphorus, Blood 4.1 mg/dL (2.5-4.9); Potassium, Blood 3.7 mmol/L (3.5-5.5); Sodium, Blood 148 mmol/L (136-145)
--- NOTE | 2018-11-14 07:15 | NUR ---
ASSUMED CARE: REPORT RECEIVED FROM RABIA Denise RN. ASSUMED CARE OF THIS PT AT APPROX 0700. ON ASSESSMENT, THE PT IS RESTING QUIETLY. HE IS SEDATED/INTUBATED & SHOWING NO S/SX PAIN OR DISTRESS AT THIS TIME. VENT SETTINGS AC 14, TV 500, PEEP 5 & FiO2 25%. PROPOFOL & PRECEDEX USED FOR SEDATION, TITRATION DOC IN FLOWSHEET. TF INFUSING AT GOAL OF 10 ML/HR W/ LOW RESIDUALS. BREANNE TO RLQ DRAINING MOD AMNTS SS FLUID, OVERALL OUTPUT HAS DECREASED. DRESSINGS TO ABD ARE CDI. WILL CONTINUE TO MONITOR & UPDATE NEEDED.
--- NOTE | 2018-11-14 07:21 | NUR ---
SHIFT SUMMARY NOTE PT REMAINS INTUBATED AND SEDATED AT THIS TIME. PT VENT SETTINGS HAVE REMAINED UNCHANGED THROUGHOUT THE NIGHT AND REMAIN AC 14, TV 500, FIO2 25%, AND PEEP 5. PT SPO2 HAS REMAINED IN THE MID TO HIGH 90'S THROUGHOUT THE NIGHT. PT LUNG SOUNDS REMAIN OCCASIONALLY COARSE OR WHEEZY AT TIMES. PT WAS STARTED ON A SEDATION VACATION AT APPROX 0427, PROPOFOL WAS TITRATED DOWN AND TURNED OFF. PRECEDEX REMAINED ON. PT BECAME HIGHLY AGITATED THROUGH WEAN TRIAL/SEDATION VACATION AND BEGAN TO TRASH HEAD AND LEGS IN BED AND BP BECAME HIGHLY ELEVATED INTO THE 190'S. PT WAS PROVIDED DILAUDID WITH LITTLE EFFECT. PT WAS RESTARTED ON SEDATION AND WEAN WAS ENDED DUE TO HTN AND AGITATION AT APPROX 0457. PT WAS ABLE TO OPEN EYES THROUGH WEAN TRIAL BUT DID NOT APPEAR TO TRACK ANYTHING WITH EYES AND WAS NOT ABLE TO FOLLOW ANY COMMANDS. PT CONTINUES TO HAVE DOMINGO TEMP PROBE IN PLACE, PT HAD APPROX 1150 OF CLEAR GREEN URINE OUTPUT. PT HAS REMAINED AFEBRILE THROUGH THE NIGHT. PT AT THIS TIME IS RECEIVING D5 1/2 NS W/ 20 MEQ KCL AT 75ML/HR, NS AT TKO, PROPOFOL AT 55MCG/KG/MIN, AND PRECEDEX AT 0.5MCG/KG/HR. DRESSING TO RT ABDOMEN OVER BREANNE DRAIN AND SURGICAL SITES WAS CHANGED/REPLACED OVER NIGHT. PT HAS HAD MUCH LESS OUTPUT FROM BREANNE DRAIN WITH APPROX 85ML OF SEROSANGUINOUS DRAINAGE OVERNIGHT. WILL REPORT OFF TO [facility] DAY SHIFT NURSE.
--- NOTE | 2018-11-14 09:20 | NUR ---
DR. BAKER: PROVIDER AT BEDSIDE TO SEE PT. HE IS CONCERNED THAT DESPITE THE PT's STABLE RESPIRATORY STATUS, IF WE ATTEMPT TO EXTUBATE HIM, HE MAY CAUSE MORE INTERNAL BLEEDING S/P ABD SURGERY. BECAUSE HE BECOMES SO AGITATED & IS NOT FOLLOWING COMMANDS, HE DOES NOT FEEL THAT IT IS SAFE TO EXTUBATE AT THIS TIME. WILL CONTINUE TO MONITOR & UPDATE NEEDED.
--- NOTE | 2018-11-14 18:33 | NUR ---
SHIFT SUMMARY: NO ACUTE CHANGES THIS SHIFT. PT REMAINS SEDATED/INTUBATED. PRECEDEX & PROPOFOL FOR SEDATION, TITRATION DOC IN FLOWSHEET. HE CONTINUES TO BE VERY ANXIOUS W/ ANY DECREASE IN SEDATION OR INCREASE IN STIMULUS. LS ARE CLEAR T/O, DIM IN BASES. OCCASIONAL COARSENESS NOTED THAT CLEARS W/ PT COUGHING & ETT SUCTIONING. VENT SETTINGS UNCHANGED, AC 14, TV 500, PEEP 5 & FiO2 25% W/ O2 SATS > 92%. MONITOR SHOWS SB-SR W/ HR 50-60s. BP STABLE. BT x4, PT HAS HAD NO BM TODAY BUT IS PASSING FLATUS OCCASIONALLY W/ COUGHING. STERI STRIPS TO LAP SITES ON ABD ARE CDI. DRESSING AROUND BREANNE DRAIN HAS BEEN CHANGED THIS EVENING R/T BLEEDING NOTED AROUND SITE. OGT W/ TRICKLE FEED OF VITAL HP AT GOAL OF 10 ML/HR. DOMINGO PATENT/DRAINING DARK GREEN COLORED URINE. WILL CONTINUE TO MONITOR & REPORT OFF TO ONCOMING RN.
--- NOTE | 2018-11-14 22:24 | NUR ---
ASSUMING CARE RECEIVED REPORT FROM MELINDA Echevarria RN. PT REMAINS INTUBATED AND SEDATED AT THIS TIME. PT VENT SETTINGS REMAIN AC 14, TV 500, FIO2 25%, AND PEEP 5. PT SPO2 IS MAINTAINING IN THE HIGH 90'S. PT LUNG SOUNDS ARE OCCASIONALLY COARSE THROUGHOUT AND DIMINSIHED IN THE BASES. PT IS RECEIVING NS AT TKO, D5 1/2 NS W/ 20MEQ KCL AT 75ML/HR, PROPOFOL AT 55MCG/KG/MIN, AND PRECEDEX AT 0.5MCG/KG/HR. PT WILL BECOME AGITATED WITH STIMULI. PT APPEARS TO BECOME HIGHLY AGITATED WITH REDUCTION OF SEDATION. PT HAS BEEN UNABLE TO FOLLOW ANY COMMANDS AND HAS NOT BEEN OBSERVED TO MAKE ANY PURPOSEFUL MOVEMENTS. PT REMAINS RESTRAINED IN BILATERAL SOFT WRIST RESTRAINTS AT THIS TIME. PT HAS DRESSING TO RIGHT ABDOMEN OVER BREANNE DRAIN INSERTION SITE AND SURGICAL SITES. PER REPORT DRESSING WAS CHANGED ON DAY SHIFT. DRESSING APPEARS TO BE CDI AT THIS TIME. DRAINAGE IN BREANNE DRAIN IS SANGUINOUS AT THIS TIME. PT IS RECEIVING TUBE FEEDIGN OF VITAL HIGH PROTEIN AT GOAL RATE OF 10ML/HR. PT HR IS IN THE 60'S AT THIS TIME. BP IS STABLE IN THE 130'S RANGE. ASSUMING CARE OF PT AT THIS TIME. WILL CONTINUE TO MONITOR PT.
[2018-11-15 03:44] LABS: BASOPHILS ABSOLUTE AUTO 0.02 K/mm3 (0.00-0.23); BASOPHILS PERCENT AUTO 0 % (0-2); EOSINOPHILS ABSOLUTE AUTO 0.33 K/mm3 (0.00-0.68); EOSINOPHILS PERCENT AUTO 3 % (0-6); Hematocrit 27.5 % (37.0-53.0); Hemoglobin 8.7 g/dL (13.5-17.5); IMMATURE GRAN ABSOLUTE AUTO 0.08 K/mm3 (0.00-0.10); IMMATURE GRAN PERCENT AUTO 1 % (0-1); LYMPHOCYTES ABSOLUTE AUTO 2.05 K/mm3 (0.84-5.20); LYMPHOCYTES PERCENT AUTO 20 % (21-46); MONOCYTES ABSOLUTE AUTO 0.46 K/mm3 (0.16-1.47); MONOCYTES PERCENT AUTO 5 % (4-13); Mean Corpuscular HGB Conc 31.6 g/dL (31.5-36.5); Mean Corpuscular Volume 95 fL (80-100); Mean Platelet Volume 9.9 fL (9.1-12.4); NEUTROPHILS PERCENT AUTO 71 % (41-73); Platelet Count 200 K/mm3 (150-400); RDW Coefficient Variation 16.1 % (11.7-14.2); RDW Standard Deviation 55.8 fL (35.1-46.3); White Blood Cell Count 10.14 K/mm3 (4.00-11.30)
[2018-11-15 04:01] LABS: Albumin, Blood 2.3 g/dL (3.4-5.0); Anion Gap 6 mmol/L (6-16); Blood Urea Nitrogen 9 mg/dL (8-24); Bun/Creatinine Ratio 12.2 (12.0-20.0); CO2, Blood 26 mmol/L (21-32); Calcium, Blood 7.5 mg/dL (8.5-10.1); Chloride, Blood 115 mmol/L (98-108); Creatinine, Blood 0.74 mg/dL (0.60-1.20); Glomerular Filtration Rate >60 (60-); Glucose, Blood 103 mg/dL (70-99); Phosphorus, Blood 3.6 mg/dL (2.5-4.9); Potassium, Blood 3.9 mmol/L (3.5-5.5); Sodium, Blood 147 mmol/L (136-145)
--- NOTE | 2018-11-15 06:49 | NUR ---
SHIFT SUMMARY NOTE PT REMAINS INTUBATED AT THIS TIME. PT VENT SETTINGS ARE UNCHANGED AND REMAIN AC 14, TV 500, FIO2 25%, AND PEEP 5. PT FAILED WEAN TRIAL DUE TO AGITATION AND HYPERTENSION. PT WAS PROVIDED DILAUDID PRIOR OT REDUCTION OF SEDATION WITH LITTLE EFFECT. PT WAS REPLACED ONTO SEDATION AFTER APPROX 15MIN. REFER TO RT CHARTING FOR WEAN TRAIL DETAILS. PT REMAINS ON D5 1/2 NS W/ 20MEQ KCL AT 75ML/HR. PT IS RECEIVING NS AT TKO, PROPOFOL AT 55MCG/KG/MIN, AND PRECEDEX AT 0.7MCG/KG/HR AT THIS TIME. PT CONTINUES TO HAVE DOMINGO TEMP PROBE IN [place]. PT HAS VERY DARK GREEN CLEAR URINE. PT HAS BEEN AFEBRILE THROUGH THE NIGHT. PT CONTINUES TO HAVE CR RED DRAINAGE FROM BREANNE DRAIN. OUTPUT IS INCREASED FROM PREVIOUS SHIFT OF CARE. PT CONTIUES TO HAVE DRESSING IN PLACE TO RT ABDOMEN, SOME DRAINAGE SHADOWING NOTED, OTHERWISE DRESSING IS CDI AT THIS TIME. PT CONTINUES TO RECEIVE TUBE FEEDING AT GOAL RATE OF 10ML/HR. PT HAD APPROX 30-40ML RESIDUALS WITH RESIDUAL CHECKS. WILL REPORT OFF TO [facility] DAY SHIFT NURSE.
--- NOTE | 2018-11-15 07:30 | NUR ---
ASSUMED CARE OF PATIENT; SEE ASSESSMENT CHARTING FOR DETAILS. PATIENT REMAINS SEDATED WITH PRECEDEX AT 0.7MCG/KG/HR AND PROPOFOL AT 55MCG/KG/MIN. RIKERS SCALE ABOUT 3; WILL MOVE HEAD SLIGHTLY OR EXTREM. TO PAINFUL STIMULI. LUNGS REMAIN COARSE; SUCTIONED FOR MODERATE AMOUNTS OF THIN, WHITE MUCUS. VENT. SETTINGS: A/C 14, TV 500, PEEP 5 AND FIO2 25%. MONITOR REMAINS NSR AND VSS. IVF OF D51/2 NS WITH 20MEQ KCL AT 75ML/HR. TUBE FEEDING INFUSING AT 10ML/HR VIA OGT; VITAL HIGH PROTEIN INFUSING PER [place] PUMP; RESIDUAL AROUND 10ML/. OVERALL STATUS UNCHANGED.
--- NOTE | 2018-11-15 11:00 | NUR ---
DR. HODGE (SURGEON) HERE AND MADE NO CHANGES EXCEPT INFORMED BRIDGE BUILDER THAT FEEDING CAN BE INCREASED NEEDED. RN INCREASED TF TO 15ML/HR PER BRIDGE BUILDER REQUEST.
--- NOTE | 2018-11-15 14:19 | NUR ---
PATIENTS' AUNT VISITING; UPDATED ON CURRENT STATUS. SHE WILL SIT IN PATIENTS' ROOM FOR AWHILE AND THEN LEAVE.
--- NOTE | 2018-11-15 16:00 | NUR ---
REMAINS ON SPONTANEOUS SETTINGS; SEE R.T. NOTES. TOLERATING WELL; EPISODES OF STARTING TO HIGH PRESSURE BUT CALMS DOWN AFTER PATIENT SUCTIONED/REPOSITIONED ETC.
--- NOTE | 2018-11-15 18:07 | NUR ---
SUMMARY: OVERALL STATUS UNCHANGED. TOLERATING TUBE FEEDS WELL; LAST RESIDUAL WAS 50ML BUT HAD 300CC OF FREE WATER ABOUT AN HOUR PREVIOUS. MONITOR REMAINS NSR; AFEBRILE. SBP 160'S TO 180'S THE PAST FEW HOURS. PRECEDEX DRIP AT 0.5MCG/KG/HR AND PROPOFOL DRIP 45MCG/KG/MIN. IVF'S (MAINT) DISCONTINUED. RESTRAINTS REMAIN IN PLACE TO PREVENT SELF EXTUBATION; SEDATED AND UNPREDICTABLE WHEN NOT SEDATED.
--- NOTE | 2018-11-15 19:15 | NUR ---
ASSUMED CARE PT REMAINS INTUBATED-CURRENT SETTINGS OF AC14/500/25%/5 AND SEDATED VIA PROPOFOL AT 45MCG/KG/MIN AND PRECEDEX AT 0.5MCG/KG/HR. PT OPENS EYES TO VOICE AND NOXIOUS STIM BUT DOES NOT FOLLOW COMMANDS. OG IN PLACE W/ VHP AT GOAL OF 15ML/HR AND 300ML FREE H2O Q 4. FOUR LAP SITES TO ABD DRESSINGS ARE C/D/I AND BREANNE TO RLQ REMAINS IN PLACE WITH BLOODY OUTPUT. PLAN TO MEDICATE PT FOR PAIN AND ATTEMPT SBT IN AM. PER REPORT, PT BECOMES DANGEROUSLY AGITATED WITH ANY REDUCTION IN SEDATION.
[2018-11-16 04:07] LABS: BASOPHILS ABSOLUTE AUTO 0.03 K/mm3 (0.00-0.23); BASOPHILS PERCENT AUTO 0 % (0-2); EOSINOPHILS PERCENT AUTO 4 % (0-6); Hematocrit 27.8 % (37.0-53.0); Hemoglobin 8.8 g/dL (13.5-17.5); IMMATURE GRAN ABSOLUTE AUTO 0.14 K/mm3 (0.00-0.10); IMMATURE GRAN PERCENT AUTO 1 % (0-1); LYMPHOCYTES ABSOLUTE AUTO 1.84 K/mm3 (0.84-5.20); LYMPHOCYTES PERCENT AUTO 17 % (21-46); MONOCYTES ABSOLUTE AUTO 0.71 K/mm3 (0.16-1.47); MONOCYTES PERCENT AUTO 6 % (4-13); Mean Corpuscular HGB 30.1 pg (26.0-34.0); Mean Corpuscular HGB Conc 31.7 g/dL (31.5-36.5); Mean Corpuscular Volume 95 fL (80-100); Mean Platelet Volume 9.6 fL (9.1-12.4); NEUTROPHILS ABSOLUTE AUTO 8.02 K/mm3 (1.96-9.15); NEUTROPHILS PERCENT AUTO 72 % (41-73); Platelet Count 230 K/mm3 (150-400); RDW Coefficient Variation 15.6 % (11.7-14.2); RDW Standard Deviation 55.4 fL (35.1-46.3); Red Blood Cell Count 2.92 M/mm3 (4.30-5.90); White Blood Cell Count 11.14 K/mm3 (4.00-11.30)
[2018-11-16 04:31] LABS: Albumin, Blood 2.2 g/dL (3.4-5.0); Anion Gap 4 mmol/L (6-16); Blood Urea Nitrogen 12 mg/dL (8-24); Bun/Creatinine Ratio 15.9 (12.0-20.0); CO2, Blood 27 mmol/L (21-32); Calcium, Blood 7.7 mg/dL (8.5-10.1); Chloride, Blood 114 mmol/L (98-108); Creatinine, Blood 0.76 mg/dL (0.60-1.20); Glomerular Filtration Rate >60 (60-); Glucose, Blood 93 mg/dL (70-99); Phosphorus, Blood 3.6 mg/dL (2.5-4.9); Sodium, Blood 145 mmol/L (136-145)
--- NOTE | 2018-11-16 05:30 | NUR ---
SBT SEDATION NOT TITRATED SOWN FURTHER D/T PT AGITATION-CURRENTLY AT PRECEDEX 0.5MCG/KG/HR AND PROPOFOL 40MCG/KG/MIN. PT ATTEMPTS TO OPEN EYES TO VOICE AND TURNS HEAD WHEN NAME CALLED BUT DOES NOT FOLLOW COMMANDS. PT HAS BEEN MEDICATED FOR PAIN T/O SHIFT IN AN ATTEMPT TO SEE IF PAIN IS A CONTRIBUTING FACTOR TO AGITATION. RT IN ROOM AND CHANGED PT OVER TO PS 10/5 W/ FIO2 25%. PT INITIALLY HYPERTENSIVE BUT PRECEDEX TITRATED UP TO 0.7 AND SBP NOW IN THE 130'S. PT IS TOLERATING SETTING AT THIS TIME WITH GOOD VT'S IN THE 500 RANGE, RR 16-18 AND O2 SATS 96-99%. PLAN TO LEAVE PT ON PS SETTING FOR LONG HE TOLERATES.
--- NOTE | 2018-11-16 06:24 | NUR ---
SHIFT SUMMARY SEE PREVIOUS NOTES FOR SHIFT. PT REMAINS INTUBATED, CURRENTLY ON PS 10/5 WITH FIO2 AT 25%. PROPOFOL AT 40MCG/KG/MIN AND PRECEDEX AT 0.7MCG/KG/HR. PT CONTINUES TO TOLERATE PS SETTINGS. TF AT GOAL, ONE ELEVATED RESIDUAL >100 POST 300ML FREE WATER BOLUS. BP STABLE, ECG SHOWS SR/SB AND O2 SATS MID 90'S.
--- NOTE | 2018-11-16 08:35 | NUR ---
INITIAL ASSESSMENT PATIENT INTUBATED AND ON SEDATION. PATIENT AGITATED AT BEGINNING OF ASSESSMENT, LESS SO ASSESSMENT WAS CONTINUED. CARE AND PAIN MEDICATION GIVEN. PATIENT HAS CORE TEMP OF 99.5. PATIENT ON VENT SETTINGS OF SPONTANEOUS PRESSURE SUPPORT 10/5, 25% FIO2. PATIENT HAS OCCASIONAL PRODUCTIVE COUGH. MODERATE AMOUNT OF WHITE/CLEAR SPUTUM BEING SUCTIONED FROM ETT. LUNGS CLEAR T/O. PATIENT IS IN SR. HR 70S TO 80S. BP WAS HTN, IS NOW STABLE. SCD'S IN PLACE. ABDOMEN MILDLY DISTENDED W SOFT HYPERACTIVE BOWEL SOUNDS. TUBE FEED INFUSING INTO OG AT GOAL RATE 15ML/HR. RESIDUAL OF 20ML OBTAINED AND REINSTILLED. TEMP PROBE DOMINGO DRAINING GREEN URINE. LAP SITES TO ABDOMEN. BREANNE DRAIN TO RLQ DRAINING SANGUINOUS FLUID. NS TKO. PROPOFOL INFUSING AT 45 MCG/KG/MIN. PRECEDEX INFUSING AT 0.7 MCG/KG/HR. BED LOW. CALL LIGHT WITHIN REACH. WILL CONTINUE TO MONITOR THROUGHOUT THE SHIFT.
--- NOTE | 2018-11-16 12:10 | NUR ---
PATIENT REMAINS INTUBATED AND SEDATED. PATIENT REMAINS SATTING WELL ON VENTILATOR SETTINGS. PATIENT REMAINS IN SR. HR IS IN THE 70S AND BP IS STABLE. PATIENT HAS TEMP OF 99.2 DEGREES. PATIENT GIVEN PRN PAIN MEDICATION FOR CNVI OF 0/5. RESIDUAL OF 20 ML OBTAINED AND REINSTILLED. DOMINGO DRAINING LARGE AMOUNT OF GREEN URINE. LASIX GIVEN THIS AM. PROPOFOL INFUSING AT 35 MCG/KG/MIN. PRECEDEX AT 0.7 MCG/KG/HR. NS TKO. NO OTHER ACUTE CHANGES TO NOTE AT THIS TIME. WILL CONTINUE TO MONITOR.
--- NOTE | 2018-11-16 17:19 | NUR ---
PATIENT REMAINS INTUBATED AND SEDATED. PATIENT IS SATTING WELL ON VENTILATOR SETTINGS OF AC 14, TV 500, PEEP 5, FIO2 25%. PATIENT HR IS IN THE 70S. BP IS STABLE. PT HAS TEMP OF 99.9 DEGREES. PATIENT WAS GIVEN PRN ATIVAN FOR AGITATION. RESIDUAL OF 30 ML OBTAINED AND REINSTILLED. DOMINGO DRAINING GREEN/YELLOW URINE. PROPOFOL INFUSING AT 45 MCG/KG/MIN. PRECEDEX 0.7 MCG/KG/HR. NS TKO. NO OTHER ACUTE CHANGES TO NOTE. WILL CONTINUE TO MONITOR.
--- NOTE | 2018-11-16 18:30 | NUR ---
SHIFT SUMMARY PATIENT REMAINS INTUBATED AND SEDATED. PATIENT SHOWED SOME AGITATION T/O THE SHIFT TODAY AND WAS GIVEN PRN ATIVAN AND PAIN MEDICATION FOR THIS. PATIENT APPEARS TO BE RELAXED IN BED NOW. PATIENT HAS A CORE TEMP OF 99.7 DEGREES FAHRENHEIT. PATIENT HAS BEEN ON PRESSURE SUPPORT T/O THE SHIFT TODAY. VENTILATOR SETTINGS WERE CHANGED TO AC 14, TV 500, PEEP 5, AND 25% FIO2. PATIENT IS SATTING AT OR ABOVE 90% ON THESE SETTINGS. PATIENT HAS HAD AN OCCASIONAL PRODUCTIVE COUGH AND HAS HAD A MODERATE AMOUNT OF WHITE/CLEAR SPUTUM BEING SUCTIONED FROM ETT. LUNG SOUNDS ARE CLEAR T/O. PATIENT IS IN NSR. HR IS IN 60S TO 70S. BP IS STABLE BUT PATIENT HAS BEEN HYPERTENSIVE ON AND OFF T/O THE SHIFT. SCD'S ARE IN PLACE. ABDOMEN IS MILDY DISTENDED BUT SOFT TO PALPATION W NORMOACTIVE BOWEL SOUNDS. PATIENT REMAINS TOLERATING TUBE FEEDINGS WELL. RESIDUAL IS 30ML AND BELOW T/O SHIFT. TEMP DOMINGO IS DRAINING YELLOW/GREEN URINE. LAP SITES TO ABDOMEN. BREANNE DRAIN TO RLQ DRAINING SANGUINOUS FLUID. NS TKO. PROPOFOL INFUSING AT 45 MCG/KG/MIN. PRECEDEX IS INFUSING AT 0.7 MCG/KG/HR. BED IS LOW. CALL LIGHT WITHIN REACH.
--- NOTE | 2018-11-16 19:51 | NUR ---
ASSUMED CARE OF PT AT 1900. REPORT RECEIVED. PT PRESENTS IN BED. VENTED. SETTINGS CHECKED AND VERIFIED. AC 14, Tv 500, FIO2 25, PEEP 5. PT TOLERATING THIS WELL. PT NOTED TO BE SOMEWHAT HYPOTENSIVE. SEE VITAL SIGN FLOWSHEET. DID DECREASE PROPOFOL DRIP FROM 45 MCG/KG/MIN TO 40 MCG'S, AND PRECEDEX DRIP FROM 0.7 MCG'S/KG/HOUR TO 0.5 MCG'S. BLOOD PRESSURE HAS SUBSEQUENTLY IMPROVED. WILL REVIEW CHART AND PLAN OF CARE FOR THIS PT. DID SPEAK WITH RESPIRATORY THERAPISTCATALINA ABOUT AM PLAN WITH VENT.
--- NOTE | 2018-11-16 22:08 | NUR ---
UNFORTUNATELY NEEDED TO GO BACK TO 45 MCG/KG/MIN OF PROPOFOL AND 0.7 MCG/KG/HOUR OF PRECEDEX SECONDARY TO PT BECOMING AGITATED AND VERY RESTLESS. DID ADMINISTER 1 MG DILAUDID IV SECONDARY TO PRECEIVED ABDOMINAL POST OP PAIN AND FOR VENT TOLERANCE. PT CURRENTLY RESTING IN NO APPARENT DISTRESS. BREANNE DRAIN CLEARED OF 70 ML SAINGOUS FLUID. BREANNE BULB DEPRESSED AND DRAINING APPROPRIATELY. SOME DRAINAGE UNDER DRESSING COVERING BREANNE INSERTION. WILL CHANGE THIS DRESSING. OGT WITH TUBE FEED AT 15ML/HOUR WITH 300 ML H20 FLUSH Q 4 HOURS. RESIDUAL CHECK REVEALS 15 ML FROM OGT. THIS REINSTILLED. TOLERATING TUBE FEEDING WELL. WILL CONTINUE TO MONITOR PT.
--- NOTE | 2018-11-17 01:30 | NUR ---
PT'S BLOOD PRESSURES NOTED TO BE LABILE WITH ADJUSTMENTS IN PROPOFOL AND PRECEDEX. HAVE SUCTIONED PT ETT WITH RETURN OF WHITISH COLORED SECRETIONS. PT HAS GOOD COUGH EFFORT WHEN BEING TURNED. PT HAS BEEN MEDICATED WITH DILAUDID 1 MG FOR PERCEIVED ABDOMINAL POST OP PAIN. DRESSING CHANGED TO BREANNE INSERTION SITE. PADDING WAS SATURATED WITH SEROUSAINGEOUS DRAINAGE. AREA CLENSED, AND NEW MEPILEX ULTRA-ABSORBANT DRESSING APPLIED WITH TWO DRAIN SPONGES.
--- NOTE | 2018-11-17 03:24 | NUR ---
MEDICATED PT AGAIN WITH 1 MG DILAUDID FOR VENT TOLERANCE AND POST OP PAIN. OF NOTE: PT PASSING FLATUS, AND HAS HYPER BOWEL TONES. CONTINUES WITH OXYGEN SATURATIONS > 90 PERCENT WITH CURRENT VENT SETTINGS. WILL CONTINUE TO MONITOR.
[2018-11-17 04:02] LABS: BASOPHILS ABSOLUTE AUTO 0.02 K/mm3 (0.00-0.23); BASOPHILS PERCENT AUTO 0 % (0-2); EOSINOPHILS ABSOLUTE AUTO 0.45 K/mm3 (0.00-0.68); EOSINOPHILS PERCENT AUTO 4 % (0-6); Hematocrit 29.6 % (37.0-53.0); Hemoglobin 9.5 g/dL (13.5-17.5); IMMATURE GRAN ABSOLUTE AUTO 0.24 K/mm3 (0.00-0.10); IMMATURE GRAN PERCENT AUTO 2 % (0-1); LYMPHOCYTES ABSOLUTE AUTO 2.08 K/mm3 (0.84-5.20); LYMPHOCYTES PERCENT AUTO 19 % (21-46); MONOCYTES ABSOLUTE AUTO 0.75 K/mm3 (0.16-1.47); MONOCYTES PERCENT AUTO 7 % (4-13); Mean Corpuscular HGB Conc 32.1 g/dL (31.5-36.5); Mean Corpuscular Volume 93 fL (80-100); Mean Platelet Volume 9.5 fL (9.1-12.4); NEUTROPHILS ABSOLUTE AUTO 7.38 K/mm3 (1.96-9.15); NEUTROPHILS PERCENT AUTO 68 % (41-73); Platelet Count 289 K/mm3 (150-400); RDW Coefficient Variation 14.8 % (11.7-14.2); RDW Standard Deviation 50.4 fL (35.1-46.3); Red Blood Cell Count 3.17 M/mm3 (4.30-5.90); White Blood Cell Count 10.92 K/mm3 (4.00-11.30)
[2018-11-17 04:20] LABS: Alanine Aminotransfer (ALT/SGP 63 U/L (12-78); Albumin, Blood 2.4 g/dL (3.4-5.0); Albumin/Globulin Ratio 0.8 (0.8-1.8); Alk Phos 787 U/L (50-136); Anion Gap 9 mmol/L (6-16); Aspartate Aminotrans (AST/SGOT 70 U/L (12-37); Bilirubin, Total 0.7 mg/dL (0.1-1.0); Blood Urea Nitrogen 17 mg/dL (8-24); Bun/Creatinine Ratio 23.4 (12.0-20.0); CO2, Blood 26 mmol/L (21-32); Calcium, Blood 7.8 mg/dL (8.5-10.1); Chloride, Blood 109 mmol/L (98-108); Creatinine, Blood 0.73 mg/dL (0.60-1.20); Globulin, Blood 3.2 g/dL (2.2-4.0); Glomerular Filtration Rate >60 (60-); Glucose, Blood 102 mg/dL (70-99); Phosphorus, Blood 3.3 mg/dL (2.5-4.9); Potassium, Blood 3.7 mmol/L (3.5-5.5); Sodium, Blood 144 mmol/L (136-145); Total Protein, Blood 5.6 g/dL (6.4-8.2)
--- NOTE | 2018-11-17 06:17 | NUR ---
PT PLACED TO SPONTANEOUS PER RESPIRATORY THERAPY. NEEDS TO HAVE SEDATION CONTINUE SECONDARY TO PT'S VENT INTOLERANCE. 45 MCG'S/KG/MIN WITH PRECEDEX 0.7 MCG'S/KG/HOUR. PT STILL NOT TOLERATING VENT AT THIS TIME. DID CALL RT TO ASSESS. WHEN TERI RT ARRIVES TO ROOM HE HAD JUST CALMED AND DECISION MADE TO KEEP PT ON SPONTANEOUS WITH EXPECTATIONS OF PROBABLE EXTUBATION LATER THIS MORNING. PT DOES AWAKEN AND BECOME INCREASINGLY AGITATED. HAVE MEDICATED PT WITH DILAUDID 1 MG WITH LITTLE NOTICABLE AFFECT. PT CONTINUES TO BE VERY ANXIOUS. IS ATTEMPTING TO GET OUT OF BED. DID INCREASE PROPOFOL TO 55 AND SINCE TO 60 MCG'S. PT AWAKENS AGAIN AND AGGRESSIVELY ATTEMPTS TO GET ETT OUT. HAVE ATTEMPTED TO REDIRECT PT WHICH IS VERY DIFFICULT TO DO. PT DOES NOT FOLLOW ANY COMMANDS AT THIS TIME. BLOOD PRESSURES THIS NIGHT HAVE BEEN VERY LABILE. HAS BEEN HYPOTENSIVE TO HYPERTENSIVE DEPENDING UPON HIS AGITATION LEVEL AND SEDATION LEVEL. HAS RUN LOW GRADE TEMP THROUGH THE NIGHT. THIS ALSO WITH PT'S MOVING ABOUT IN BED. LOW RESIDUALS FROM OGT. CONTINUES ON TUBE FEEDINGS WITH HIGH WATER FLUSHES. BREANNE DRAIN DRAINED SEVERAL TIMES THROUGHOUT THE NIGHT. SEE FLOWSHEET FOR DETAILS. WILL CONTINUE TO MONITOR PT, AND WILL REPORT OFF TO ONCOMING RN.
--- NOTE | 2018-11-17 08:48 | NUR ---
ASSUMED CARE: REPORT RECEIVED FROM CARA Machado RN. ASSUMED CARE OF THIS PT AT APPROX 0700. ON ASSESSMENT, THE PT IS RESTING QUIETLY. VENT ON SPONTANEOUS W/ PS 10/5 & FiO2 25%. PT MEDICATED W/ DILAUDID PER EMAR, PROPOFOL PLACED ON STANDBY AT THAT TIME FOR BRIEF APNEIC PERIOD NOTED. PT NOW MORE AWAKE & IS FOLLOWING COMMANDS. HE IS OPENING EYES TO VERBAL STIMULI & TURNS HIS HEAD IN THE DIRECTION OF MY VOICE, BUT EYES DO NOT APPEAR TO FOCUS. SEDATION HAS BEEN RESUMED & THE PT IS NOW MORE RELAXED AGAIN. HE HAS RESPONDED WELL TO VERBAL REMINDERS TO RELAX & REMAIN CALM. WILL CONTINUE TO MONITOR & UPDATE NEEDED.
--- NOTE | 2018-11-17 09:55 | NUR ---
DR. BAKER: PROVIDER AT BEDSIDE TO SEE PT. PLANS TO EXTUBATE THIS AM. WILL ADMIN ONE DOSE ZYPREXA PER DR. BAKER PRIOR TO EXTUBATION. OKAY TO TAKE PRECEDEX UP TO MAX DOSE 1.4 MCG/KG/HR DURING EXTUBATION NEEDED FOR PT ANXIETY. RT, MYA Bermudez, HAS BEEN NOTIFIED OF THIS. WILL CONTINUE TO MONITOR & UPDATE NEEDED.
--- NOTE | 2018-11-17 10:21 | NUR ---
EXTUBATION: PT EXTUBATED AT 1010, RESTRAINTS ALSO REMOVED AT THIS TIME. MYA Bermudez, RT, AT BEDSIDE. O2 SATS > 92% ON RA. PT TOLERATED EXTUBATION WELL & IS NOW SITTING UP IN BED & COUGHING W/O DIFFICULTY. HIS MENTATION REMAINS ALTERED, HE IS SPEAKING BUT UNABLE TO FORM A FULL SENTENCE OR COMMUNICATE EFFECTIVELY AT THIS TIME. HE IS ALSO EMOTIONAL & HAS BEGUN TO CRY SINCE EXTUBATION. HE DOES NOT ANSWER THIS RN WHEN ASKED IF HE IS IN PAIN OR DISCOMFORT. WILL CONTINUE TO MONITOR & UPDATE NEEDED.
--- NOTE | 2018-11-17 18:08 | NUR ---
SHIFT SUMMARY: NO ACUTE CHANGES SINCE PRIOR UPDATES. PT REMAINS ON RA, O2 SATS > 90%. LS ARE CLEAR T/O, DIM IN BASES. DONIS VEST REMAINS ON, CHARTED IN INTERVENTIONS. PT FEBRILE SINCE EXTUBATION, MEDS PER EMAR. MONITOR SHOWS SR, HR 70-90s. PT HAS BEEN HYPERTENSIVE, MEDS PER EMAR. BT x4, PT CHRIS A SMALL AMNT OF PO INTAKE THIS EVENING W/ NO NAUSEA OR INCREASE IN PAIN. TEMP DOMINGO REMAINS PATENT/DRAINING DARK YELLOW URINE. SKIN OVERALL CDI, LAP SITES TO ABD W/ STERI STRIPS CDI. BREANNE TO RLQ CONTINUES TO HAVE MOD AMNTS OF SANGUINOUS DRAINAGE. WILL CONTINUE TO MONITOR & REPORT OFF TO ONCOMING RN.
--- NOTE | 2018-11-17 19:42 | NUR ---
ASSUMED CARE OF PT AT 1900. REPORT RECEIVED. PT PRESENTS IN BED MODERATELY AGITATED. TRYING TO GET OUT OF BED. USING HIS LEGS TO TRY AND GET MOMENTUM TO THROW SELF TO A SEATED POSITION. EXPLAINED TO PT THAT THIS IS NOT GOOD POST OP TO BE SO AGGRESSIVE IN MOVING IN BED. PT DOES NOT FOLLOW INSTRUCTIONS FULLY. USING VEST DONIS RESTRAINT TO KEEP PT IN BED SINCE HE IS SUCH A HIGH FALL RISK. PT ALSO BEING VERY INMPULSIVE. BREANNE DRAIN REMAINS DEPRESSED. SAINGEOUS FLUID WITHIN. DRESSING OVER SITE CDI. LAP SITES WNL. NO S/S INFECTION. PT CONTINUES ON 1.4 MCG'S/KG/HOUR PRECEDEX DRIP. WILL CONTINUE TO CLOSELY MONITOR PT FOR SAFETY. WILL REVIEW CHART AND PLAN OF CARE FOR THIS PT. PT MAINTAINS >90 PERCENT SATURATIONS ON ROOM AIR.
--- NOTE | 2018-11-17 22:01 | NUR ---
HAVE MEDICATED PT WITH 1 MG DILAUDID FOR COMPLAINTS OF ABDOMINAL PAIN. NO FURTHER COMPLAINTS NOTED. PT HAS PERIODICALLY BEEN AGGRESSIVELY ATTEMPTING TO GET OUT OF BED. WHEN REORIENTED, PT IS NOT SURE WHERE HE IS. IS AT TIMES EUPHORIC IN AFFECT. REQUESTING TO "DAB" WHICH IN HIS DEFINITION IS A LIQUID MARIJUANA. CONTINUES ON 1.4 MCG/KG/HOUR PRECEDEX DRIP. PT CURRENTLY RESTING. WILL CONTINUE TO CLOSELY MONITOR FOR PT'S SAFETY AND PAIN.
--- NOTE | 2018-11-18 02:30 | NUR ---
PT HAS RESTED SOME THIS NIGHT. DOES AWAKEN AND HAS HALLUCINATIONS. IS CONVINCED THAT HIS "HEARING AIDES" ARE ON THE CEILING. PT REMAINS MOSTLY PLEASANT. IS COOPERATIVE WITH CARE. BREANNE INTACT. WILL CONTINUE TO MONITOR PT.
[2018-11-18 05:13] LABS: BASOPHILS ABSOLUTE AUTO 0.04 K/mm3 (0.00-0.23); BASOPHILS PERCENT AUTO 0 % (0-2); EOSINOPHILS ABSOLUTE AUTO 0.32 K/mm3 (0.00-0.68); EOSINOPHILS PERCENT AUTO 2 % (0-6); IMMATURE GRAN ABSOLUTE AUTO 0.18 K/mm3 (0.00-0.10); IMMATURE GRAN PERCENT AUTO 1 % (0-1); LYMPHOCYTES ABSOLUTE AUTO 2.13 K/mm3 (0.84-5.20); LYMPHOCYTES PERCENT AUTO 14 % (21-46); MONOCYTES ABSOLUTE AUTO 1.03 K/mm3 (0.16-1.47); MONOCYTES PERCENT AUTO 7 % (4-13); Mean Corpuscular HGB 29.1 pg (26.0-34.0); Mean Corpuscular HGB Conc 32.3 g/dL (31.5-36.5); Mean Platelet Volume 9.2 fL (9.1-12.4); NEUTROPHILS ABSOLUTE AUTO 11.29 K/mm3 (1.96-9.15); NEUTROPHILS PERCENT AUTO 75 % (41-73); Platelet Count 363 K/mm3 (150-400); RDW Coefficient Variation 14.4 % (11.7-14.2); RDW Standard Deviation 46.6 fL (35.1-46.3); Red Blood Cell Count 3.44 M/mm3 (4.30-5.90); White Blood Cell Count 14.99 K/mm3 (4.00-11.30)
[2018-11-18 05:18] LABS: Mean Corpuscular Volume 90 fL (80-100)
[2018-11-18 05:49] LABS: Alanine Aminotransfer (ALT/SGP 45 U/L (12-78); Albumin, Blood 2.7 g/dL (3.4-5.0); Albumin/Globulin Ratio 0.7 (0.8-1.8); Alk Phos 589 U/L (50-136); Anion Gap 9 mmol/L (6-16); Aspartate Aminotrans (AST/SGOT 31 U/L (12-37); Bilirubin, Direct 0.3 mg/dL (0.0-0.3); Bilirubin, Indirect 0.7 mg/dL (0.1-0.7); Blood Urea Nitrogen 11 mg/dL (8-24); Bun/Creatinine Ratio 14.8 (12.0-20.0); CO2, Blood 23 mmol/L (21-32); Calcium, Blood 8.3 mg/dL (8.5-10.1); Chloride, Blood 109 mmol/L (98-108); Creatinine, Blood 0.74 mg/dL (0.60-1.20); Globulin, Blood 3.7 g/dL (2.2-4.0); Glomerular Filtration Rate >60 (60-); Glucose, Blood 102 mg/dL (70-99); Phosphorus, Blood 3.1 mg/dL (2.5-4.9); Potassium, Blood 3.6 mmol/L (3.5-5.5); Sodium, Blood 141 mmol/L (136-145); Total Protein, Blood 6.4 g/dL (6.4-8.2)
--- NOTE | 2018-11-18 06:57 | NUR ---
PT HAS BEEN MEDICATED AT APPROX Q 3 HOURS WITH DILAUDID FOR COMPLAINTS OF SURGICAL PAIN. BREANNE DRAIN WITH 15 ML DRAINAGE. DRESSING OVER SITE CDI. HAVE GOTTEN PT UP TO BEDSIDE RECLINER. PT ABLE TO ASSIST MODERATELY. DOES FOLLOW DIRECTIONS. PT'S PRECEDEX DRIP HAS BEEN DECREASED TO 1.0 MCG/KG/HOUR. PT HAS NOT MADE ANY ATTEMPTS TO GET AHOLD OF ANY LINES OR TUBES. DRESSING CHANGE DONE TO PICC LINE. WILL CONTINUE TO MONITOR PT, AND WILL REPORT OFF TO ONCOMING RN.
--- NOTE | 2018-11-18 08:11 | NUR ---
ASSUMED CARE: REPORT RECEIVED FROM CARA Machado RN. ASSUMED CARE OF THIS PT AT APPROX 0700. ON ASSESSMENT, THE PT IS RESTING QUIETLY RECLINED IN CHAIR. HE DENIES NEED FOR PAIN MEDS ON AWAKING & STS HE DOESN'T WANT TO "BECOME A DRUGGY." PAIN CONTROL IS DISCUSSED W/ THE PT. PRECEDEX CONTINUES FOR MANAGEMENT OF PT's ANXIETY & AGITATION, TITRATION DOC IN FLOWSHEET. HE IS MOVING BETTER THIS AM BUT STS THAT "EVERYTHING FEELS HEAVIER" WHEN TRYING TO FEED HIMSELF. WILL REQUEST PT/OT EVAL & TX DURING PROVIDER AM ROUNDS. WILL CONTINUE TO MONITOR & UPDATE NEEDED.
--- NOTE | 2018-11-18 08:30 | NUR ---
DR. BAKER / DR. HODGE: BOTH PROVIDERS AT BEDSIDE TO SEE THE PT THIS AM. NO CHANGES PER SURGICAL SERVICES. PT/OT ORDERED PER DR. BAKER. BOTH ARE IN AGREEANCE THAT PT CAN BE SURGICAL FLOOR STATUS IF TITRATED OFF OF PRECEDEX TODAY & TOLERATES WELL. WILL CONTINUE TO MONITOR & UPDATE NEEDED.
--- NOTE | 2018-11-18 18:13 | NUR ---
SHIFT SUMMARY: NO ACUTE CHANGES THIS SHIFT. PT REMAINS A&O, PLEASANT & COOPERATIVE. HIS FRIENDS THAT HAVE VISITED T/O THE DAY STATE THE PT IS CLOSE TO HIS BASELINE MENTATION. ONE FRIEND REFERRED TO HIM "NUTTIER THAN A FRUIT CAKE ALL THE TIME." HE IS STILL EXPERIENCING SOME VISUAL HALLUCINATIONS, SAYING HE "SEES HOLLOGRAMS," BUT ACKNOWLEDGES THAT THEY ARE NOT REALLY THERE. LS ARE CLEAR T/O, DIM IN BASES. PT REMAINS ON RA W/ O2 SATS > 92%. MONITOR SHOWS NSR, HR 80s ON AVG. OCCASIONAL HR 110s W/ EXERTION AND/OR INCREASED PAIN LEVEL. BT x4, PT TOLERATING PO INTAKE WELL. NAUSEA x1 THIS SHIFT AFTER DILAUDID ADMIN, RESOLVED W/ ZOFRAN PER EMAR. DOMINGO REMAINS PATENT/DRAINING DARK, YELLOW URINE. LAP SITES W/ STERI STRIPS CDI. RLQ BREANNE DRAINING SCANT AMNTS SANGUINOUS DRAINAGE. SKIN OTHERWISE CDI. WILL CONTINUE TO MONITOR & REPORT OFF TO ONCOMING RN.
--- NOTE | 2018-11-18 19:47 | NUR ---
ASSUMED CARE OF PT AT 1900. REPORT RECEIVED. PT HAS VISITOR IN ROOM. PT STARTS TO COUGH, AND BECOMES VERY OVERLY DRAMATIC AND LOUD WITH COUGH. PT IS ABLE TO EXPECTORATE CLEAR/WHITE SECRETIONS. PT STATES HE HAS A HEADACHE, AND IS MEDICATED WITH 650 MG TYELENOL. PENDING RESULTS. WILL CONTINUE TO MONITOR PT. WILL REVIEW CHART AND PLAN OF CARE FOR THIS PT.
--- NOTE | 2018-11-19 00:47 | NUR ---
PT BACK IN BED. WAS A ONE PERSON TRANSFER TO BED. THIS WAS DONE AT 2044. PT DOES ATTEMPT BOWEL MOVEMENT ON COMMODE PRIOR TO GOING TO BED. PT PASSES FLATUS. BREANNE DRAIN WITH MINIMAL DRAINAGE. BULB REMAINS DEPRESSED. PT RATHER TALKATIVE TO HIMSELF IN ROOM. UNFORTUNATELY ANOTHER PATIENT IN UNIT CAME OUT OF ROOM AND WAS YELLING VERY LOUDLY. THIS DID ESCALATE PT AND HE BECAME VERY CONCERNED. PT NEEDS TO BE CALMED. PT CURRENTLY IN WHAT WOULD QUALIFY AN EUPHORIC AFFECT. SOME OF HIS CONVERSATIONS SOMEWHAT GRANDIOSE. PT HAS BEEN HYPERTENSIVE WHICH HAS NORMALLY SELF CORRECTED WITH DECREASED STIMULI IN ROOM. WILL DO ANOTHER BLOOD PRESSURE AND IF REMAINS ELEVATED WILL MEDICATE WITH LABATELOL PER PRN EMAR. CALLED REPORT TO PCU FOR TRANSFER TO PCU 1. PT MADE AWARE OF TRANSFER. DURING REPORT DID PROVIDE FOR QUESTIONS. HAVE HAD VEST RESTRAINT OFF PT SINCE 2099 THIS NIGHT. PT HAS NOT MADE ANY ATTEMPTS TO GET OUT OF BED. BED ALARM ON BED FOR HIS SAFETY. THIS INFORMATION PASSED TO RECEIVING RN.
--- NOTE | 2018-11-19 01:57 | NUR ---
REPORT RECIEVED FROM CARA STEVENS, RETAIL SALES CLERK AND AWAITING PT T/F TO ROOM 210.
--- NOTE | 2018-11-19 02:21 | NUR ---
PT ORIENTED TO ROOM AND CALL SYSTEM. HE'S PLEASANT AND COOPERATIVE AT THIS TIME BUT BED ALARM ON FOR PREVIOUS IMPULSIVITY. HE PREVIOUSLY REQUIRED DONIS VEST IN ICU. PT INSTRUCTED TO CALL FOR ASSIST OOB. PT ORIENTED TO SELF AND FAMILY AND SEEMS AWARE OF SURROUNDINGS BUT HAS FLIGHTS OF IDEAS, WANDERING SPEECH AND IS CONFUSED/NONSENSICAL AT TIMES. HE IS ABLE TO SPECIFY NEEDS THOUGH. TELEMETRY PLACED, NSR AT 98 BPM. THIS RN AGREES TO CREELER'S (CARA STEVENS) ASSESSMENT FINDINGS. STERI STRIPS INTACT TO X4 LAP NORM SITES AND BREANNE DRAIN W/DX INTACT TO R.LOWER QUAD, BT'S (+). TEMP, HR AND RR IMPROVED BUT BP REMAINS ELEVATED AT SBP 180'S DESPITE RECIEVING PRN LABETOLOL IN ICU. WILL CONT TO MONITOR.
--- NOTE | 2018-11-19 05:13 | NUR ---
SUMMARY: A/OX3, LABILE MOOD, PLEASANT AND COOPERATIVE BUT REQUIRES FREQ INSTRUCTIONS AND HAS FLIGHTS OF IDEAS W/NONSENSICAL AND GRANDIOSE SPEECH. SBP HAS SUSTAINED ELEVATION OF 170'S-180'S THIS SHIFT DESPITE SMALL CRAFT OPERATOR PROVIDING LABETOLOL PRIOR TO SX FLOOR T/F. HTN AND TACHYCARDIA COINCIDE W/INFLATED MOOD THOUGH WHEN PT IS VERY EUPHORIC AND TALKATIVE. HE IS ASYMPTOMATIC OF CARDIAC DISTRESS AT ALL TIMES SO PRN BP MEDS WEREN'T GIVEN BY THIS RN. TELEMETRY IN PLACE AND REMAINS NSR 90'S-100'S. BREANNE DRAIN IS PATENT W/SCANT RED OUTPUT OBSERVED AND X4 LAP NORM ABDO SITES W/STERI STRIPS REMAIN C/D/I. BT'S (+) X4 QUADS AND PT HAD MEDIUM SOFT BM THIS SHIFT. TEMP DOMINGO IN PLACE AND REMAINS PATENT/DRAINING. PT DENIES NEEDS/COMPLAINTS. VSS/AFEBRILE AND NO ACUTE CHANGES. BED ALARM ON FOR POSSIBLE IMPULSIVITY. WILL MONITOR/REPORT TO DAY RN.
[2018-11-19 06:39] LABS: BASOPHILS ABSOLUTE AUTO 0.05 K/mm3 (0.00-0.23); BASOPHILS PERCENT AUTO 0 % (0-2); EOSINOPHILS ABSOLUTE AUTO 0.07 K/mm3 (0.00-0.68); EOSINOPHILS PERCENT AUTO 0 % (0-6); Hemoglobin 10.4 g/dL (13.5-17.5); IMMATURE GRAN ABSOLUTE AUTO 0.24 K/mm3 (0.00-0.10); IMMATURE GRAN PERCENT AUTO 1 % (0-1); LYMPHOCYTES ABSOLUTE AUTO 1.87 K/mm3 (0.84-5.20); LYMPHOCYTES PERCENT AUTO 10 % (21-46); MONOCYTES ABSOLUTE AUTO 1.08 K/mm3 (0.16-1.47); MONOCYTES PERCENT AUTO 6 % (4-13); Mean Corpuscular HGB 29.1 pg (26.0-34.0); Mean Corpuscular HGB Conc 32.5 g/dL (31.5-36.5); Mean Corpuscular Volume 89 fL (80-100); Mean Platelet Volume 8.8 fL (9.1-12.4); NEUTROPHILS ABSOLUTE AUTO 15.84 K/mm3 (1.96-9.15); NEUTROPHILS PERCENT AUTO 83 % (41-73); Platelet Count 451 K/mm3 (150-400); RDW Coefficient Variation 14.3 % (11.7-14.2); RDW Standard Deviation 46.3 fL (35.1-46.3); Red Blood Cell Count 3.58 M/mm3 (4.30-5.90); White Blood Cell Count 19.15 K/mm3 (4.00-11.30)
[2018-11-19 06:57] LABS: Anion Gap 9 mmol/L (6-16); Blood Urea Nitrogen 13 mg/dL (8-24); Bun/Creatinine Ratio 19.1 (12.0-20.0); CO2, Blood 23 mmol/L (21-32); Calcium, Blood 8.7 mg/dL (8.5-10.1); Chloride, Blood 109 mmol/L (98-108); Creatinine, Blood 0.68 mg/dL (0.60-1.20); Glomerular Filtration Rate >60 (60-); Glucose, Blood 117 mg/dL (70-99); Phosphorus, Blood 1.9 mg/dL (2.5-4.9); Potassium, Blood 3.7 mmol/L (3.5-5.5); Sodium, Blood 141 mmol/L (136-145)
--- NOTE | 2018-11-19 10:49 | NUR ---
BREANNE DRAIN PT PULLED BREANNE DRAIN PARTIALLY OUT THIS AM. ATTEMPTED TO PLACE DRAIN TO BULB SUCTION, WOULD NOT HOLD SUCTION. DR. HODGE WAS NOTIFIED; ORDER TO REMOVE DRAIN. DRAIN WAS REMOVED. GAUZE PLACED OVER WOUND, SECURED WITH FOAM COMPRESSION TAPE. WILL MONITOR BLEEDING FROM DRAIN REMOVAL SITE. WILL CONTINUE TO MONITOR.
--- NOTE | 2018-11-19 10:53 | NUR ---
HTN DR. HODGE NOTIFIED THAT PT IS HAVING CONTINUED HTN. DR. BOWIE CONSULTED PER DR. HODGE FOR MEDICAL AND HTN MANAGEMENT.
--- NOTE | 2018-11-19 14:17 | NUR ---
SHIFT ASSESSMENT THIS RN AGREES WITH SHIFT ASSESSMENT DOCUMENTATION BY BRIGIDO STUDENT NURSE.
--- NOTE | 2018-11-19 17:15 | NUR ---
Shift Summary pt diet is regular, has been refusing hospital food. PT is manic and unfocused. catheter was DC'd. Patient's last BP was 166/98 at [address]15. [address] in [address] on R arm. 1 person transfer or SBA. Has been using toilet, takes extra time to use bathroom. Does not use call light effectively. PT is easily distracted may require frequent reorienting. Having dilusions that he can control electronics with his mind.
--- NOTE | 2018-11-20 02:30 | NUR ---
PT ARRIVED TO ICU 10 FROM SURGICAL FLOOR A RAPID RESPONSE. PT IS CONSTANTLY TALKING NONSENSICALLY AND SINGING AT TIMES. STATES "[place]" WHEN ASKED WHERE HE IS. COULD NOT COME UP WITH THE HOSPITAL FOR BUILDING BUT A/O TO PERSON. WILL FOLLOW SIMPLE COMMANDS. BEDSIDE REPORT RECEIVED FROM RADHA GANNON.
--- NOTE | 2018-11-20 04:09 | NUR ---
APPROX [address] SANTANA NOTIFIED PT HAS BEEN TALKING NON-STOP DURING NIGHT AND WHILE TALKING TO RN SUDDENLY BEGAN TO REPLACE WORDS WITH SOUNDS AND DEMONSTRATED SIGNS OF SEIZING. PT HAD ONLY BEEN GIVEN ATIVAN AND NO OPIODS DURING SHIFT. PT GIVEN 5MG ROMAZICON BY FARMWORKER CRANBERRY AND PT BECAME MORE RESPONSIVE. TRANSFERED TO ICU; ICU STATUS CLARIFIED, DR. SANTANA STS TO HAVE PT ICU STATUS. DR. SANTANA NOTIFIED WHEN PT OOB EARLIER IN SHIFT TELEMETRY NOTIFIED OF HR 140'S AND HR TRENDING DOWN SINCE PT RETURNED TO BED.
[2018-11-20 04:57] LABS: Source, Urine Catheter
--- NOTE | 2018-11-20 05:00 | NUR ---
AT 0400 PT WAS TALKING TO THIS RN [facility] FRONT LAWN AT 0500. PT WAS INSISTENT HE NEEDED TO LEAVE. REASSURED PT HE WAS IN THE HOSPITAL AND NEEDED TO GET BETTER BEFORE HE COULD LEAVE. LEFT THE ROOM FOR A MINUTE TO GRAB DRESSING FOR PICC LINE, WHEN I CAME BACK PT WAS HAVING SEIZURE LIKE ACTIVITY. EYE'S ROLLED BACK IN HEAD, VIOLENTLY SHAKING THE BED, RIGID, AND NOT PROTECTING AIRWAY. PROCEDED TO CALL CODE AND GOT PT TO SIDE TO TRY TO AVOID ASPIRATION. DR. SALDANA FROM ER ARRIVED WELL DR. SANTANA. DR. SALDANA INTUBATED PT AFTER 20MG OF ETOMIDATE AND 100MG OF SUCCINYLCHOLINE. RT SET UP VENT. PT WAS ROUSING QUICKLY FROM SEDATION. PROPOFOL STARTED. PT WAS COUGHING A LOT WITH SMALL AMT OF LIGHT LAMAS/WHITE SPUTUM. ATIVAN GIVEN WELL. DOMINGO PLACED AND DRAINING TEA COLORED URINE. UA SENT PER PROTOCOL. OG PLACED AND CLAMPED. CXR DONE. LABS SENT.
[2018-11-20 05:01] LABS: Blood, Urine 1+ (Neg); Glucose Qualitative, Urine Neg (Neg); Ketones, Urine 3+ (Neg); Leukocyte Esterase, Urine 1+ (Neg); Nitrite, Urine Neg (Neg); Protein, Urine 2+ (Neg); Specific Gravity, Urine 1.025 (1.003-1.022); Urobilinogen, Urine 2+ (Normal)
[2018-11-20 05:07] LABS: BASOPHILS ABSOLUTE AUTO 0.06 K/mm3 (0.00-0.23); BASOPHILS PERCENT AUTO 0 % (0-2); EOSINOPHILS PERCENT AUTO 1 % (0-6); Hematocrit 32.5 % (37.0-53.0); Hemoglobin 10.2 g/dL (13.5-17.5); IMMATURE GRAN ABSOLUTE AUTO 0.17 K/mm3 (0.00-0.10); IMMATURE GRAN PERCENT AUTO 1 % (0-1); LYMPHOCYTES ABSOLUTE AUTO 2.46 K/mm3 (0.84-5.20); LYMPHOCYTES PERCENT AUTO 12 % (21-46); MONOCYTES ABSOLUTE AUTO 1.16 K/mm3 (0.16-1.47); MONOCYTES PERCENT AUTO 6 % (4-13); Mean Corpuscular HGB Conc 31.4 g/dL (31.5-36.5); Mean Platelet Volume 9.2 fL (9.1-12.4); NEUTROPHILS ABSOLUTE AUTO 15.96 K/mm3 (1.96-9.15); NEUTROPHILS PERCENT AUTO 80 % (41-73); Platelet Count 596 K/mm3 (150-400); RDW Coefficient Variation 14.8 % (11.7-14.2); RDW Standard Deviation 49.6 fL (35.1-46.3); Red Blood Cell Count 3.52 M/mm3 (4.30-5.90); White Blood Cell Count 19.91 K/mm3 (4.00-11.30)
[2018-11-20 05:08] LABS: Mean Corpuscular Volume 92 fL (80-100)
[2018-11-20 05:10] LABS: Appearance, Urine Hazy (Clear); Bilirubin, Urine 1+ (Neg); Color, Urine Amber (P-Yellow)
[2018-11-20 05:11] LABS: Amorphous Mod (0-Heavy); Bacteria Few /hpf; Hyaline Casts 50-100 /lpf (0-2); Mucus Light (0-Heavy); Red Blood Cells, Urine 0-2 /hpf (0-2); Squamous Epithelial Cells Rare /hpf (Few); White Blood Cells, Urine 0-2 /hpf (0-5)
[2018-11-20 05:39] LABS: Albumin, Blood 3.1 g/dL (3.4-5.0); Anion Gap 9 mmol/L (6-16); Blood Urea Nitrogen 22 mg/dL (8-24); Bun/Creatinine Ratio 23.5 (12.0-20.0); CO2, Blood 23 mmol/L (21-32); Calcium, Blood 8.4 mg/dL (8.5-10.1); Chloride, Blood 112 mmol/L (98-108); Creatinine, Blood 0.94 mg/dL (0.60-1.20); Glomerular Filtration Rate >60 (60-); Glucose, Blood 141 mg/dL (70-99); Phosphorus, Blood 3.3 mg/dL (2.5-4.9); Potassium, Blood 3.5 mmol/L (3.5-5.5); Sodium, Blood 144 mmol/L (136-145)
--- NOTE | 2018-11-20 06:05 | NUR ---
TOOK PT TO CT WITH RT AND RN X2.
--- NOTE | 2018-11-20 06:42 | NUR ---
CARE SUMMARY POD#10 LAP NORM; FORMER DRAIN AND LAP SITES CDI. PT REFUSED PAIN MEDICATIONS. PT ORIENTED TO SELF, "[place]," AND AWARE OF REASON FOR BEING IN HOSPITAL. PT TALKED ALMOST NON-STOP; WHEN ASKED A QUESTION PT WOULD OFTEN CONTINUE TALKING OR BECOME IRRITATED. PT CONTINUED TO HAVE VISUAL HALLUCINATIONS REPORTING "[employer]" AND "A SNIPER AND DOG IN THE [place]" VISIBLE OUT THE PATIENT'S WINDOW. SIDE RAILS AND BED ALARM FOR SAFETY. PT OOB SEVERAL TIMES; SBA FOR SAFETY; PT NOT STABLE ON FEET. JULIO C FOURNIER CALLED APPROX. 2245 NOTIFIED PT OOB AND COULD NOT BE CONVINCED TO GO BACK TO BED, SINGING PARTS OF SONG REPEATEDLY, REPEATING SAME CONVERSATIONS, AND THAT DAY SHIFT RN REPORTS PT HAD VISITORS WHO STATE BEHAVIOR UNUSUAL FOR PT. NOTIFIED WBC'S ELEVATED AND LACTIC ACID WITH AM LABS REQUESTED. ORDER FOR 0.5 ML-2ML IV ATIVAN X1 GIVEN. PT RETURNED TO BED. TELEMETRY IN PLACE; SR/ST; SEE NOTE ON COMMUNICATION WITH DR. SANTANA. JUST BEFORE 0200 PT BED ALARM WHEN OFF; PT VERBALIZED VISUAL HALLUCINATIONS OUT WINDOW. PT LAYED DOWN IN BED AND PT CONTINUED TALKING HE BEGAN TO SUBSTITUTE SOUNDS FOR WORDS AND AFTER A FEW SECONDS BEGAN CONVUSLING AND WAS NON-RESPONSIVE, BREATHING. PT TURNED OVER TO R SIDE. PACKAGING SALES CALLED. SEE PACKAGING SALES DOCUMENTATION. PT TRANSFERED TO ICU. REPORT GIVEN TO ICU NURSE AT BEDSIDE. DR. SANTANA NOTIFIED, SEE NOTE.
--- NOTE | 2018-11-20 07:45 | NUR ---
PT SEDATED ON 40MCG PROPOFOL FOR MECH VENT. NO SEIZURE ACTIVITY NOTED THIS AM. PT ROUSES TO ANY NOXIOUS STIMULI. DOES NOT FOLLOW DIRECTIONS. DR MILLER TO BE NOTIFIED OF CONSULT.
[2018-11-20 08:31] LABS: PCO2 Arterial 34.6 mmHg (35-45); PO2 Arterial 131 mmHg (80-100); pH Blood Arterial 7.42 (7.35-7.45)
--- NOTE | 2018-11-20 09:33 | NUR ---
DR MILLER IN TO SEE PT, SEE NEW ORDERS. ATIVAN 2MG GIVEN FOR SEVERE AGITATION; KICKING IN BED, UNABLE TO FOLLOW DIRECTIONS. PROPOFOL TEMPORARILY INCREASED TO 60MCG.
[2018-11-20 11:04] LABS: U Amphetamine Screen Not Detected; U Barbituate Screen Not Detected; U Benzodiazapine Screen DETECTED; U Buprenorphine Screen Not Detected; U Cannabinoids Screen DETECTED; U Cocaine Screen Not Detected; U Methadone Screen Not Detected; U Methamphetamine Screen Not Detected; U Opiates Screen Not Detected; U Oxycodone Screen Not Detected; U Phencyclidine Screen Not Detected; U Propoxyphene Screen Not Detected
--- NOTE | 2018-11-20 11:12 | NUR ---
OG ADVANCED 6CM PER DR MILLER. TF STARTED PER ORDERS, VITAL HP AT 20CC/HR.
--- NOTE | 2018-11-20 17:24 | NUR ---
PT U/O 250CC FOR THE SHIFT, HYPOTENSIVE W MAP 58-65. DR MILLER NOTIFIED; 1L LR BOLUS ORDERED
--- NOTE | 2018-11-20 20:05 | NUR ---
PT INTUBATED AND SEDATED WITH PROPOFOL AT 40MCG/KG/MIN. PT WILL TRY TO OPEN EYE'S TO NAME. GRIMACES AND PULLS AWAY FROM NOXIOUS STIMULUS. PUPILS EQUAL AND BRISK. SEE ASSESSMENT.
[2018-11-21 05:23] LABS: BASOPHILS ABSOLUTE AUTO 0.06 K/mm3 (0.00-0.23); BASOPHILS PERCENT AUTO 0 % (0-2); EOSINOPHILS ABSOLUTE AUTO 0.29 K/mm3 (0.00-0.68); EOSINOPHILS PERCENT AUTO 1 % (0-6); Hematocrit 23.5 % (37.0-53.0); Hemoglobin 7.4 g/dL (13.5-17.5); IMMATURE GRAN PERCENT AUTO 1 % (0-1); LYMPHOCYTES ABSOLUTE AUTO 3.02 K/mm3 (0.84-5.20); LYMPHOCYTES PERCENT AUTO 14 % (21-46); MONOCYTES ABSOLUTE AUTO 1.35 K/mm3 (0.16-1.47); MONOCYTES PERCENT AUTO 6 % (4-13); Mean Corpuscular HGB 29.4 pg (26.0-34.0); Mean Corpuscular HGB Conc 31.5 g/dL (31.5-36.5); Mean Corpuscular Volume 93 fL (80-100); Mean Platelet Volume 9.1 fL (9.1-12.4); NEUTROPHILS ABSOLUTE AUTO 17.36 K/mm3 (1.96-9.15); NEUTROPHILS PERCENT AUTO 78 % (41-73); Platelet Count 617 K/mm3 (150-400); RDW Coefficient Variation 14.9 % (11.7-14.2); RDW Standard Deviation 50.9 fL (35.1-46.3); Red Blood Cell Count 2.52 M/mm3 (4.30-5.90); White Blood Cell Count 22.28 K/mm3 (4.00-11.30)
[2018-11-21 05:50] LABS: PCO2 Arterial 35.8 mmHg (35-45); PO2 Arterial 72.8 mmHg (80-100); pH Blood Arterial 7.44 (7.35-7.45)
[2018-11-21 06:16] LABS: Alanine Aminotransfer (ALT/SGP 39 U/L (12-78); Albumin, Blood 2.5 g/dL (3.4-5.0); Albumin/Globulin Ratio 0.7 (0.8-1.8); Alk Phos 290 U/L (50-136); Anion Gap 8 mmol/L (6-16); Aspartate Aminotrans (AST/SGOT 34 U/L (12-37); Bilirubin, Total 0.5 mg/dL (0.1-1.0); Blood Urea Nitrogen 23 mg/dL (8-24); Bun/Creatinine Ratio 26.3 (12.0-20.0); CO2, Blood 24 mmol/L (21-32); Calcium, Blood 8.1 mg/dL (8.5-10.1); Chloride, Blood 112 mmol/L (98-108); Creatinine, Blood 0.87 mg/dL (0.60-1.20); Globulin, Blood 3.6 g/dL (2.2-4.0); Glomerular Filtration Rate >60 (60-); Glucose, Blood 97 mg/dL (70-99); Magnesium, Blood 2.3 mg/dL (1.6-2.4); Phosphorus, Blood 3.6 mg/dL (2.5-4.9); Potassium, Blood 3.4 mmol/L (3.5-5.5); Sodium, Blood 144 mmol/L (136-145); Total Protein, Blood 6.1 g/dL (6.4-8.2)
--- NOTE | 2018-11-21 06:38 | NUR ---
SUMMARY PT INTUBATED AND SEDATED WITH PROPOFOL. USING ATIVAN AND FENTANYL IN ADJUNCT. AFTER SBT AND SEDATION VACATION THIS AM PT WAS AGITATED AND WAS TRYING TO SCOOT OUT OF THE BED. GAVE FENTANYL AND TURNED PROPOFOL BACK ON. PT BECAME A LITTLE HYPOTENSIVE BUT TURNED PROPOFOL TO 30MCG/KG/MIN AND BP RESPONDED WELL. CALLED DR. MILLER THIS AM AND REPORTED H&H DROP. NO SIGNS OF BLEEDING, ABD IS UNCHANGED. ALSO REPORTED POTASSIUM LEVEL AND DR. MILLER SAID HE WILL BE IN TO SEE HIM. NO NEW ORDERS. TOLERATING TF WITH LITTLE TO NO RESIDUAL.
--- NOTE | 2018-11-21 08:46 | NUR ---
PT SEDATED ON 50MCG PROPOFOL FOR MECH VENT. NO SEIZURE ACTIVITY NOTED. PT AROUSES;GRIMACES;RESTLESS W ANY NOXIOUS STIMULI. ABD SOFT POSSIBLY TENDER TO RUQ PT GRIMACES SLIGHTLY TO PALP. BT'S POS T/O. PT'S H&H DROPPED SIGNIFICANTLY; WILL HOLD TF AND LOVENOX UNTIL CLEARED TO GIVE PEER DR MILLER; PT MAY HAVE ANOTHER ABD BLEED. BP HYPOTENSIVE AT TIMES W MAP >60-65. HEART RATE STABLE. AWAITING EEG TO BE COMPLETED.
--- NOTE | 2018-11-21 08:58 | NUR ---
DR BOWIE IN TO SEE PT; GIVEN UPDATE
--- NOTE | 2018-11-21 09:11 | NUR ---
PT HYPOTENSIVE 79/46 W MAP 55. PROPOFOL DECREASED TO 30MCG. DR MILLER IN UNIT AND NOTIFIED. LR BOLUS ORDERED AND STARTED. STAT H&H ORDERED.
[2018-11-21 09:41] LABS: Hematocrit 25.6 % (37.0-53.0)
--- NOTE | 2018-11-21 10:03 | NUR ---
H&H 04/06.6, TO BE REPEATED AT [address] MILLER.
--- NOTE | 2018-11-21 10:34 | NUR ---
DR HODGE IN TO SEE PT, NO NEW ORDERS
[2018-11-21 16:29] LABS: Hematocrit 25.6 % (37.0-53.0); Hemoglobin 8.1 g/dL (13.5-17.5)
--- NOTE | 2018-11-21 16:41 | NUR ---
DR MILLER CALLED AND GIVEN H&H RESULTS, NO NEW ORDERS OF NOW.
--- NOTE | 2018-11-21 17:58 | NUR ---
HYPOTENSION W MAP <60 NOTED AT 1700, 250CC BOLUS STARTED; DR MILLER NOTIFIED. PT RESPONSIVE TO 250CC, MAP >65. TO CALL DR MILLER IF HYPOTENSION CONTINUES
[2018-11-22 04:21] LABS: BASOPHILS ABSOLUTE AUTO 0.05 K/mm3 (0.00-0.23); BASOPHILS PERCENT AUTO 0 % (0-2); EOSINOPHILS ABSOLUTE AUTO 0.26 K/mm3 (0.00-0.68); EOSINOPHILS PERCENT AUTO 1 % (0-6); Hematocrit 25.2 % (37.0-53.0); IMMATURE GRAN ABSOLUTE AUTO 0.15 K/mm3 (0.00-0.10); IMMATURE GRAN PERCENT AUTO 1 % (0-1); LYMPHOCYTES ABSOLUTE AUTO 2.51 K/mm3 (0.84-5.20); LYMPHOCYTES PERCENT AUTO 14 % (21-46); MONOCYTES PERCENT AUTO 5 % (4-13); Mean Corpuscular HGB 29.2 pg (26.0-34.0); Mean Corpuscular HGB Conc 31.7 g/dL (31.5-36.5); Mean Corpuscular Volume 92 fL (80-100); NEUTROPHILS ABSOLUTE AUTO 14.54 K/mm3 (1.96-9.15); NEUTROPHILS PERCENT AUTO 79 % (41-73); Platelet Count 510 K/mm3 (150-400); RDW Coefficient Variation 15.3 % (11.7-14.2); Red Blood Cell Count 2.74 M/mm3 (4.30-5.90); White Blood Cell Count 18.41 K/mm3 (4.00-11.30)
[2018-11-22 04:42] LABS: Anion Gap 7 mmol/L (6-16); Blood Urea Nitrogen 14 mg/dL (8-24); Bun/Creatinine Ratio 17.1 (12.0-20.0); CO2, Blood 24 mmol/L (21-32); Calcium, Blood 7.9 mg/dL (8.5-10.1); Chloride, Blood 112 mmol/L (98-108); Creatinine, Blood 0.82 mg/dL (0.60-1.20); Glomerular Filtration Rate >60 (60-); Glucose, Blood 97 mg/dL (70-99); Potassium, Blood 3.6 mmol/L (3.5-5.5); Sodium, Blood 143 mmol/L (136-145)
[2018-11-22 05:01] LABS: PCO2 Arterial 32.5 mmHg (35-45); PO2 Arterial 66.5 mmHg (80-100); pH Blood Arterial 7.48 (7.35-7.45)
--- NOTE | 2018-11-22 06:04 | NUR ---
SUMMARY PT INTUBATED AND SEDATED WITH PROPOFOL. DURING SEDATION VACATION AND SBT THIS AM PT SQUIRMS IN BED, WON'T SLOW BREATHING, AND BP WENT UP. PLACED BACK ON PROPOFOL AFTER SBT AND IT TAKES AWHILE TO GET PT CALMED BACK DOWN. ALSO USING ATIVAN AND FENTANYL IN CONJUNCTION. PT GRIMACES IF IN PAIN. H&H IS UNCHANGED THIS AM. NO SIGNS OF BLEEDING. ABD UNCHANGED. BP STABLE. UO IMPROVED.
--- NOTE | 2018-11-22 07:16 | NUR ---
ASSUMED CARE REPORT FROM TERESSA CORONADO. PATIENT IS INTUBATED, RESTRAINED AND SEDATED ON PROPOFOL AT 50 MCG/KG/MIN. PER IVONNE, HE JUST RECEIVED ATIVAN AND FENTANYL BECAUSE HE WAS VERY AGITATED AFTER HIS SBT FAILURE.
--- NOTE | 2018-11-22 07:33 | NUR ---
MD VISIT DR. BOWIE IN. NO NEW ORDERS.
--- NOTE | 2018-11-22 09:40 | NUR ---
MD VISIT DR. WHITING IN. NO NEW ORDERS DRESSING CDI
--- NOTE | 2018-11-22 10:27 | NUR ---
TRADING ASSISTANT IN. WILL STOP PROPOFOL WHEN READY
--- NOTE | 2018-11-22 10:45 | NUR ---
PATIENT USED CALL LIGHT AND ASKED FOR MEDICATION TO CALM HIM DOWN AFTER COMPASS WORKER WAS THERE. HE SAID SHE UPSET HIM WITH THE QUESTIONS SHE WAS ASKING AND INFORMATION SHE WAS GIVING HIM. ATIVAN 2MG IV GIVEN. INSTRUCTIONS TO STAY IN BED AFTER AND BED ALARM ON. TELEPHONE CALL TO HIS SISTER.
--- NOTE | 2018-11-22 11:03 | NUR ---
PROPOFOL OFF FOR EEG. REPOSITIONED AGAIN
--- NOTE | 2018-11-22 13:07 | NUR ---
SUMMARY: PATIENT CALM WHILE OFF PROPFOL FOR EEG. SBT STARTED WHILE CALM. STOOL CLEANED, CONTINUED LIQUID STOOL. FLEXISEAL PLACED. PATIENT BUCKING IN BED AFTER BATH, KICKING UP HIS LEGS, SLIDING TOWARD RESTRAINTS. IN DANGER OF FALLING OUT OF BED AND SELF EXTUBATION. NOTIFIED YASMEEN AND PROPOFOL RESTARTED, PLACED BACK ON A/C AND FENTANYL 50 MCG IV GIVEN. EKG DONE TO DETERMINE QT INTERVAL. ZYPREXA ORDERED BY DR. SMITH.
--- NOTE | 2018-11-22 15:23 | NUR ---
MOTHER CALLED. UPDATE GIVEN. NEIGHBOR STOPPED BY.
--- NOTE | 2018-11-22 19:20 | NUR ---
REPORT GIVEN TO TERESSA CAMARILLO
--- NOTE | 2018-11-22 21:21 | NUR ---
ASSUMING CARE RECEIVED PT REPORT FROM TERESSA PICKENS. PT IS INTUBATED AT THIS TIME. PT VENT SETTINGS ARE AC 14, TV 500, FIO2 25%, AND PEEP 5. PT SPO2 IS IN THE MID TO HIGH 90'S. PT IS RECEIVING PROPOFOL FOR SEDATION AT THIS TIME. PROPOFOL IS RUNNING AT 65MCG/KG/MIN. PER REPORT PT WILL BECOME HIGHLY AGITATED IF SEDATION IS REDUCED. PT IS RESTRAINED IN BILATERAL SOFT WRIST RESTRAINTS AT THIS TIME. PT HAS DOMINGO CATH IN PLACE. CURRENTLY PATENT AND DRAINING TO GRAVITY. PT HR IS IN THE 90-100'S RANGE AT THIS TIME. BP APPEARS TO BE STABLE IN THE 120-140'S. PT IS RECEIVING LR AT TKO AND NS AT TKO. PT IS RECEIVING TUBE FEEDING OF VITAL HIGH PROTEIN AT GOAL RATE OF 20ML/HR. PT HAD APPROX 60ML OF RESIDUALS. ASSUMING CARE OF PT AT THE TIME OF SHIFT REPORT. WILL CONTINUE TO MONITOR PT.
[2018-11-23 06:24] LABS: BASOPHILS ABSOLUTE AUTO 0.05 K/mm3 (0.00-0.23); BASOPHILS PERCENT AUTO 0 % (0-2); EOSINOPHILS ABSOLUTE AUTO 0.16 K/mm3 (0.00-0.68); EOSINOPHILS PERCENT AUTO 1 % (0-6); Hematocrit 27.1 % (37.0-53.0); Hemoglobin 8.5 g/dL (13.5-17.5); IMMATURE GRAN PERCENT AUTO 1 % (0-1); LYMPHOCYTES ABSOLUTE AUTO 2.14 K/mm3 (0.84-5.20); LYMPHOCYTES PERCENT AUTO 12 % (21-46); MONOCYTES ABSOLUTE AUTO 0.77 K/mm3 (0.16-1.47); MONOCYTES PERCENT AUTO 4 % (4-13); Mean Corpuscular HGB 29.1 pg (26.0-34.0); Mean Corpuscular HGB Conc 31.4 g/dL (31.5-36.5); Mean Corpuscular Volume 93 fL (80-100); NEUTROPHILS ABSOLUTE AUTO 14.44 K/mm3 (1.96-9.15); NEUTROPHILS PERCENT AUTO 82 % (41-73); Platelet Count 608 K/mm3 (150-400); RDW Standard Deviation 51.7 fL (35.1-46.3); Red Blood Cell Count 2.92 M/mm3 (4.30-5.90); White Blood Cell Count 17.66 K/mm3 (4.00-11.30)
[2018-11-23 06:41] LABS: Alanine Aminotransfer (ALT/SGP 26 U/L (12-78); Albumin, Blood 2.2 g/dL (3.4-5.0); Albumin/Globulin Ratio 0.6 (0.8-1.8); Alk Phos 201 U/L (50-136); Anion Gap 7 mmol/L (6-16); Aspartate Aminotrans (AST/SGOT 20 U/L (12-37); Bilirubin, Total 0.3 mg/dL (0.1-1.0); Blood Urea Nitrogen 11 mg/dL (8-24); Bun/Creatinine Ratio 14.1 (12.0-20.0); CO2, Blood 24 mmol/L (21-32); Calcium, Blood 8.2 mg/dL (8.5-10.1); Chloride, Blood 116 mmol/L (98-108); Creatinine, Blood 0.78 mg/dL (0.60-1.20); Glomerular Filtration Rate >60 (60-); Glucose, Blood 108 mg/dL (70-99); Magnesium, Blood 2.2 mg/dL (1.6-2.4); Potassium, Blood 3.4 mmol/L (3.5-5.5); Sodium, Blood 147 mmol/L (136-145); Total Protein, Blood 6.2 g/dL (6.4-8.2)
--- NOTE | 2018-11-23 06:53 | NUR ---
ASSUMED CARE REPORT FROM TERESSA CAMARILLO. REPOSITIONED PATIENT. INTUBATED, RESTRAINED, SEDATED ON PROPOFOL AT 65 MCG/KG/MIN. KEEPS SLIDING DOWN, HANGING HIS FEET OUT OF THE LEFT SIDE OF THE BED.
--- NOTE | 2018-11-23 07:14 | NUR ---
SHIFT SUMMARY NOTE PT REMAINES INTUBATED. PT VENT SETTIGNS HAVE REMAINED UNCHANGED THROUGH THE NIGHT AND REMAIN AC 14, TV 500, FIO2 25%, AND PEEP 5. PT SPO2 HAS MAINTAINED IN THE HIGH 90'S THROUGH THE NIGHT. PT HAD A SEDATION VACATION AND WEAN TRIAL AT APPROX 0326 TO 0351. PER RT REPORT PT DID WELL RESPIRATORY VILLARREAL THROUGH WEAN BUT BECAME AGITATED. SEDATION WAS RESUMED WHEN PT BP ELEVATED INTO THE 200'S SYSTOLIC. PT CONTINUES TO HAVE DOMINGO IN PLACE. PT HAD APPROX 1700ML OF CLEAR GREEN URINE. PT HAD APPROX 500ML OF LIQUID BROWN STOOL IN RECTAL TUBE. PT CONTINUES TO HAVE ABD BINDER IN PLACE AND WOUND DRESSINGS ON ABD RELATED TO SURGICAL PROCEDURE. DRESSIGNS REMAIN CDI AT THIS ITME. PT CONTINUES TO RECEIVE NS AT TKO, LR AT TKO, AND PROPOFOL AT 65MCG/KG/MIN. PT CONTINUES TO RECEIVE TUBE FEEDING AT GOAL RATEOF 20. PT HAD APPROX 60ML OF RESIDUALS WITH RESIDUAL CHECKS. WILL REPORT OFF TO ONCOING DAY SHIFT NURSE.
--- NOTE | 2018-11-23 08:56 | NUR ---
[facility] RECORDS SENT FOR
--- NOTE | 2018-11-23 10:33 | NUR ---
MD VISIT DR. SMITH IN. TURNED VENT TO SPONT Vt 500 PS 10 PEEP 5 FIO2 REMAINS AT 25%. PROPOFOL TITRATED TO 30%. PT OPENED EYES ON COMMAND. TITRATED TO 20 MCG/KG/MIN RR 34 HR 99
--- NOTE | 2018-11-23 15:51 | NUR ---
PATIENT ALMOST OUT OF BED BY SLIDING DOWN. CONTINUES SEDATED ON PROPOFOL 65 MCG/KG/MIN. 4 MG ATIVAN IV GIVEN. ASSIST FROM JOCELYN GARCIA RN AND CRISTINO PAINTING RN, TO CHANGE SANDERS AND REPOSITION HIM.
--- NOTE | 2018-11-23 19:15 | NUR ---
ASSUMED CARE PT REMAINS INTUBATED, CURRENTLY AT AC14/500/25%/5 AND SEDATED VIA PROPOFOL AT 65MCG/KG/MIN. PT RESPONDS TO NOXIOUS STIM WITH PULLING AWAY BUT DOES NOT FOLLOW COMMANDS. ABD LAP SITES DRESSED TODAY AND DRESSINGS ARE CDI. TF AT GOAL WITH MINIMAL RESIDUAL, RECTAL TUBE IN PLACE WITH BROWN LIQUID STOOL. PLAN ON SBT IN AM AND TO MEDICATE PER ORDERS FOR AGITATION.
[2018-11-24 03:46] LABS: Hematocrit 26.7 % (37.0-53.0); Hemoglobin 8.3 g/dL (13.5-17.5); Mean Corpuscular HGB 29.2 pg (26.0-34.0); Mean Corpuscular HGB Conc 31.1 g/dL (31.5-36.5); Mean Corpuscular Volume 94 fL (80-100); Mean Platelet Volume 8.8 fL (9.1-12.4); Platelet Count 609 K/mm3 (150-400); RDW Standard Deviation 52.4 fL (35.1-46.3); Red Blood Cell Count 2.84 M/mm3 (4.30-5.90); White Blood Cell Count 14.23 K/mm3 (4.00-11.30)
[2018-11-24 04:06] LABS: Anion Gap 10 mmol/L (6-16); Blood Urea Nitrogen 14 mg/dL (8-24); Bun/Creatinine Ratio 18.5 (12.0-20.0); CO2, Blood 24 mmol/L (21-32); Calcium, Blood 8.2 mg/dL (8.5-10.1); Chloride, Blood 112 mmol/L (98-108); Creatinine, Blood 0.76 mg/dL (0.60-1.20); Glomerular Filtration Rate >60 (60-); Glucose, Blood 99 mg/dL (70-99); Potassium, Blood 3.3 mmol/L (3.5-5.5); Sodium, Blood 146 mmol/L (136-145); Triglycerides 152 mg/dL (30-160)
--- NOTE | 2018-11-24 04:09 | NUR ---
SBT SBT UNDERWAY. ZYPREXA GIVEN IM AT 0200 AND PROPOFOL HAS BEEN OFF FOR 40 MINUTES. PT VT'S >300, RR 26-34 AND O2 SATS MID 90'S. PT ATTEMPTS TO OPEN EYES TO HIS NAME BEING CALLED BUT DOES NOT FOLLOW COMMANDS. PT IS CURRENTLY KICKING FEET IN BED AND SHIFTING SELF. BP ELEVATED WITH SBP'S IN THE 160'S. TOWARDS THE END OF THE SBT, SPB >200. SBT COMPLETED, SEDATION RESUMED AT ATIVAN ADMINISTERED TO PREVENT PT FROM KICKING SELF OUT OF BED.
--- NOTE | 2018-11-24 06:10 | NUR ---
SHIFT SUMMARY SEE PREVIOUS NOTES FOR SHIFT. POST SBT, PT RETURNED TO PREVIOUSLY NOTED AC SETTING ON VENT, SEDATION VIA PROPOFOL AT 45MCG/KG/HR. TF REMAINS AT GOAL WITH MINIMAL RESIDUALS AND RECTAL TUBE IN PLACE WITH LIQUID STOOL. PT CONTINUES TO BE RESTLESS POST SBT BUT THE RESTLESSNESS IS INTERMITTENT. CALL TO DR SANTANA THIS AM FOR K REPLACEMENT AND BAG 1/2 INFUSING. BP STABLE, ECG SHOWS SR AND O2 SATS MID 90'S.
--- NOTE | 2018-11-24 09:56 | NUR ---
INITIAL ASSESSMENT PATIENT INTUBATED AND ON SEDATION. PATIENT BECOMES AGITATED AND LOCALIZES MOVEMENT IN EXTREMITIES WITH NURSING CARE. PATIENT IS AFEBRILE. PATIENT REMAINS SATTING WELL ON CURRENT VENT SETTINGS: A/C 14, TV 500, PEEP 5, FIO2 25%. NSR W/ HR IN THE 80S. BP IS STABLE. SCDS IN PLACE. PATIENT HAS OG IN PLACE W RESIDUALS OF 30 ML REINSTILLED AND VHP INFUSING AT GOAL RATE OF 20 ML/HR. PATIENT HAS RECTAL TUBE AND DOMINGO DRAINING CLEAR YELLOW URINE IN PLACE. SKIN IS C/D/W. PROPOFOL 45 MCG/KG/MIN. POTASSIUM ALSO INFUSING FOR LOW LEVELS THIS AM. BED LOW. CALL LIGHT IN REACH. WILL CONTINUE TO MONITOR.
--- NOTE | 2018-11-24 11:40 | NUR ---
INFORMED DR. BAKER ABOUT PATIENT'S HIGH SODIUM LEVEL OF 146 THIS AM. NO ORDERS RECEIVED AT THIS TIME.
--- NOTE | 2018-11-24 11:54 | NUR ---
PATIENT RESTING QUIETLY IN BED. NO SIGNS OF PAIN. PATIENT HAS TEMP OF 99.6 DEGREES FAHRENHEIT- FAN PLACED ON PATIENT. ROOM TEMP DOWN. PATIENT REMAINS RESPONDING TO PAINFUL STIMULI AND NURSING CARE. PATIENT STARTED ON PRECEDEX AT 0.4 MCG/ KG/ HOUR. PROPOFOL DECREASED FROM 45 TO 20 MCG/ KG/ MINUTE. NS TKO WITH PRECEDEX. PATIENT STARTED ON SCHEDULED ZYPREXA. ASA AND PLAVIX ALSO STARTED. PATIENT REMAINS SATTING WELL ON SAME VENT SETTINGS. NO SECRETIONS HAVE BEEN SUCTIONED FROM ETT. PATIENT REMAINS IN SR, HR IN THE 80S. BP STABLE. TF REMAINS INFUSING AT GOAL RATE. NO RESIDUAL OBTAINED. DOMINGO DRAINING DARK YELLOW/ GREEN URINE. NO OTHER ACUTE CHANGES TO NOTE ON AT THIS TIME. WILL CONTINUE TO MONITOR.
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
--- NOTE | 2018-11-24 16:35 | NUR ---
PATIENT IS INTUBATED AND ON SEDATION. PATIENT IS AFEBRILE. PATIENT IS SATTING WELL ON CURRENT VENT SETTINGS OF A/C 14, TV 500, PEEP 5, FIO2 25%. NSR WITH HR IN THE 60S-70S. BP IS STABLE. OG TUBE IN PLACE WITH VHP INFUSING AT 20 ML/HR WITH H20 FLUSH AT 60 ML Q4H. RESIDUALS OF 5 ML REINSTILLED. RECTAL TUBE IN PLACE DRAINING TO GRAVITY. DOMINGO IN PLACE DRAINING DARK YELLOW/GREEN URINE. SKIN APPEARS C/D/I. PROPOFOL 20 MCG/KG/MIN. PRECEDEX 0.6 MCG/KG/HR. NS TKO. KEPPRA STARTED AT 220 ML/HR. NO OTHER ACUTE CHANGES TO NOTE AT THIS TIME. WILL CONTINUE TO MONITOR.
--- NOTE | 2018-11-24 18:29 | NUR ---
SHIFT SUMMARY PATIENT IS INTUBATED AND ON SEDATION. PATIENT IS AFEBRILE. PATIENT EXPERIENCED SOME AGITATION WITH NURSING CARE THROUGHOUT THE SHIFT TODAY, HOWEVER WAS MEDICATED TWICE WITH PRN FENTANYL FOR THIS. PATIENT IS CLEAR IN THE UPPER LOBES BUT DIMINISHED IN THE LOWER. PATIENT HAS BEEN SATTING WELL ON CURRENT VENTILATOR SETTINGS A/C 14, TV 500, PEEP 5,, FIO2 25%. PATIENT HAS HAD SOME CLEAR/WHITE SECRETIONS SUCTIONED FROM THE ETT TODAY. NSR WITH HR IN THE 70S. BP IS STABLE. PATIENT HAS OG IN PLACE WITH VHP INFUSING AT GOAL RATE OF 20 ML/HR. RESIDUALS HAVE RANGED FROM 0-30 ML TODAY REINSTILLED. RECTAL TUBE IN PLACE DRAINING BROWN STOOL. DOMINGO IN PLACE DRAINING DARK TEA COLORED URINE. SKIN IS C/D/I. PROPOFOL 20 MCG/KG/MIN. PRECEDEX 0.7 MCG/KG/HR. NS TKO. NO OTHER ACUTE CHANGES TO NOTE AT THIS TIME. BED LOW. CALL LIGHT IN REACH.
--- NOTE | 2018-11-24 20:43 | NUR ---
ASSUMED CARE PT REMAINS ON VENT AC14/500/5/25%. PT IS QUIET AND SEDATED ON PROPOFOL 20MCG/KG/MIN AND PRECEDEX 0.7MCG/KG/HR; ALONG WITH NS TKO. NO FAMILY PRESENT. VITALS ARE WNL.
[2018-11-25 04:22] LABS: Hematocrit 26.2 % (37.0-53.0); Hemoglobin 8.2 g/dL (13.5-17.5); Mean Corpuscular HGB 29.2 pg (26.0-34.0); Mean Corpuscular HGB Conc 31.3 g/dL (31.5-36.5); Mean Corpuscular Volume 93 fL (80-100); Mean Platelet Volume 8.7 fL (9.1-12.4); Platelet Count 575 K/mm3 (150-400); RDW Coefficient Variation 15.2 % (11.7-14.2); Red Blood Cell Count 2.81 M/mm3 (4.30-5.90); White Blood Cell Count 12.11 K/mm3 (4.00-11.30)
[2018-11-25 04:43] LABS: Anion Gap 8 mmol/L (6-16); Blood Urea Nitrogen 18 mg/dL (8-24); Bun/Creatinine Ratio 22.6 (12.0-20.0); CO2, Blood 23 mmol/L (21-32); Calcium, Blood 8.1 mg/dL (8.5-10.1); Chloride, Blood 112 mmol/L (98-108); Glomerular Filtration Rate >60 (60-); Glucose, Blood 109 mg/dL (70-99); Phosphorus, Blood 2.8 mg/dL (2.5-4.9); Potassium, Blood 3.5 mmol/L (3.5-5.5); Sodium, Blood 143 mmol/L (136-145)
--- NOTE | 2018-11-25 06:29 | NUR ---
SHIFT SUMMARY PT REMAINS ON VENT AC14/500/5/25%. CURRENT GTTS: PROPOFOL 35MCG/KG/MIN, PRECEDEX 0.7MCG/KG/HR, AND NS TKO. PT HAD SBT AROUND 0530 AND HAS BEEN AGITATED SINCE THEN, HE RESPONDED TO COMMANDS WITH THE SEDATION WEAN DURING SBT. TUBE FEEDING IS AT GOAL 20ML/HR, AND RESIDUALS HAVE BEEN <20ML; BESIDES INITIAL AT START OF SHIFT IT WAS 100ML. PT CONTINUES TO MAKE GOOD URINE AND HAS BEEN HEMODYNAMICALLY STABLE THROUGHOUT NIGHT. MINIMAL-MODERATE CLEAR THIN ORAL SECRETIONS WITH SCANT TRACHEAL SECRETIONS. NO FAMILY PRESENT. FAN IS ON AND BLOWING ON PATIENT, PT JUST ACHIEVED A TEMPERATURE OF 100.1.
--- NOTE | 2018-11-25 07:44 | NUR ---
PT SEDATED ON PROPOFOL AT 35MCG AND PRECEDEX AT 0.7MCG FOR MECH VENT. PT RESTLESS, GONZALEZ. PT WILL INVENTORY AUDITOR HAND TO COMMAND, DOES NOT OPEN EYES. DRSG X2 TO ABD C/D/I. ABD SOFT, NON TENDER TO PALP. PLAN; POSSIBLE EXTUBATION TODAY.
--- NOTE | 2018-11-25 08:25 | NUR ---
DR BAKER INTO SEE PT; PLANS TO EXTUBATE TODAY. TF OFF IN PREP FOR EXTUBATION.
--- NOTE | 2018-11-25 09:21 | NUR ---
PT TO BE EXTUBATED PER DR BAKER. PROPOFOL OFF, RT NOTIFIED. PT BOOSTED INTO HIGH FOWLERS POSITION. TF REMAINS OFF.
--- NOTE | 2018-11-25 10:23 | NUR ---
PT EXTUBATED AT 1018 W/O DIFFICULTIES. PT SATS 98% ON RA. RT AT BEDSIDE. PT ABLE TO FOLLOW SIMPLE COMMANDS, WORDS ARE INCOMPREHENSIBLE, PT SLEEPING, AWAKENS BREIFLY THEN FALLS BACK TO SLEEP. PRECEDEX DECREASED TO 0.3MCG, WILL TITRATE OFF TOLERATED. RESTRAINTS LEFT ON UNTIL PT MORE ALERT/AWAKE AND CAN DEMONSTRATE THAT HE WILL NOT PULL ON CORDS, LINES.
--- NOTE | 2018-11-25 11:49 | NUR ---
PT AGITATED AND RESTLESS, RECTAL TUBE REMOVED PER PT REQUEST. PT COMMUNICATION IMPROVING, REMAINS CONFUSED. PRECEDEX INCREASED TO 0.5MCG FOR INCREASED AGITATION.
--- NOTE | 2018-11-25 11:56 | NUR ---
PT'S DAUGHTER CALLED FOR UPDATE. PT STATED THAT HE DIDNT WANT HIS MEDICAL INFORMATION SHARED WITH HER. PT REMAINS CONFUSED W SOME APPROPRIATE CONVERSATION; PT'S WISHED RESPECTED. PT'S DAUGHTER ADVISED THAT SHE COULD CALL IMMEDIATE FAMILY FOR POSSIBLE INFORMATION.
--- NOTE | 2018-11-25 14:00 | NUR ---
PT SEVERELY AGITATED, KICKING LEGS OVER, BED, TRYING TO GET OUT OF BED, CONFUSED, ASKING FOR "BEER AND NARCOTICS". ATIVAN 1MG IVP GIVEN, PRECEDEX INCREASED TO 0.5MCG. PT REPOSITIONED IN BED
[2018-11-26 04:52] LABS: BASOPHILS ABSOLUTE AUTO 0.04 K/mm3 (0.00-0.23); BASOPHILS PERCENT AUTO 0 % (0-2); EOSINOPHILS ABSOLUTE AUTO 0.31 K/mm3 (0.00-0.68); EOSINOPHILS PERCENT AUTO 3 % (0-6); Hematocrit 29.1 % (37.0-53.0); Hemoglobin 9.1 g/dL (13.5-17.5); IMMATURE GRAN ABSOLUTE AUTO 0.06 K/mm3 (0.00-0.10); IMMATURE GRAN PERCENT AUTO 1 % (0-1); LYMPHOCYTES ABSOLUTE AUTO 2.13 K/mm3 (0.84-5.20); LYMPHOCYTES PERCENT AUTO 21 % (21-46); MONOCYTES ABSOLUTE AUTO 0.74 K/mm3 (0.16-1.47); MONOCYTES PERCENT AUTO 7 % (4-13); Mean Corpuscular HGB 28.3 pg (26.0-34.0); Mean Corpuscular HGB Conc 31.3 g/dL (31.5-36.5); Mean Corpuscular Volume 91 fL (80-100); Mean Platelet Volume 8.7 fL (9.1-12.4); NEUTROPHILS ABSOLUTE AUTO 6.68 K/mm3 (1.96-9.15); NEUTROPHILS PERCENT AUTO 67 % (41-73); Platelet Count 632 K/mm3 (150-400); RDW Coefficient Variation 14.7 % (11.7-14.2); RDW Standard Deviation 49.6 fL (35.1-46.3); Red Blood Cell Count 3.21 M/mm3 (4.30-5.90); White Blood Cell Count 9.96 K/mm3 (4.00-11.30)
[2018-11-26 05:18] LABS: Albumin, Blood 2.1 g/dL (3.4-5.0); Anion Gap 8 mmol/L (6-16); Blood Urea Nitrogen 15 mg/dL (8-24); Bun/Creatinine Ratio 19.6 (12.0-20.0); CO2, Blood 23 mmol/L (21-32); Chloride, Blood 113 mmol/L (98-108); Creatinine, Blood 0.77 mg/dL (0.60-1.20); Glomerular Filtration Rate >60 (60-); Glucose, Blood 80 mg/dL (70-99); Phosphorus, Blood 3.1 mg/dL (2.5-4.9); Potassium, Blood 3.4 mmol/L (3.5-5.5); Sodium, Blood 144 mmol/L (136-145)
--- NOTE | 2018-11-26 06:39 | NUR ---
SHIFT SUMMARY PT IS ALERT AND ORIENTED TO SELF, LOCATION, AND SITUATION TO AN EXTENT. PRECEDEX IS ON STANDBY AND NS IS INFUSING TKO. PT GOT MODERATE AMOUNT OF SLEEP OVERNIGHT, BUT WAS FREQUENTLY TALKING TO SELF, MOST OF WHICH WAS INCOMPREHENSIBLE. RESPONDS TO COMMANDS, AND APPROPRIATE RESPONSES MOST OF THE TIME; SOMETIMES WOULD SAY VERY RANDOM THINGS. PT IS STILL QUITE WEAK AND COMPLAINS ABOUT PAIN IN LEFT LEG/HIP AREA. IT IS DIFFICULT TO GET HIM TO DESCRIBE THE PAIN, BUT IS EVIDENT DURING REPOSITIONING THAT IT IS BOTHERING HIM. WILL DISCUSS WITH ONCOMING NURSE.
--- NOTE | 2018-11-26 07:15 | NUR ---
ASSUMED CARE: PT RESTING IN BED. PLEASANT AND COOPERATIVE. NIGHT RNS REPORT PRECEDEX HAS BEEN OFF SINCE 545. NO ACUTE NEEDS OR CONCERNS AT THIS TIME.
--- NOTE | 2018-11-26 10:00 | NUR ---
SPEECH THERAPY EVALUATED PT, SEE NEW ORDERS. DISCUSSED PT'S STATUS WITH DR SMITH WHO WISHES TO KEEP HIM IN ICU ONE MORE DAY FOR OBSERVATION. PT'S DRESSINGS TO ABDOMEN REMAIN CLEAN AND DRY. WOUND SITES HAVE STERI STRIPS BUT NO BLEEDING, SWELLING, SIGN OF INFECTION NOTED. RESTING QUIETLY, COOPERATIVE. NO ACUTE NEEDS OR CONCERNS AT THIS TIME.
--- NOTE | 2018-11-26 15:39 | NUR ---
PHYSICAL THERAPY WORKED WITH PT AND RETURNED HIM TO RECLINER NEAR WINDOW. THIS RN WAS IN ANOTHER ROOM WHEN THERAPIST NOTIFIED THAT PT WAS ON FLOOR. UPON ENTRANCE INTO ROOM PT WAS ON HIS STOMACH AND APPEARED TO HAVE ROLLED HIMSELF OUT OF THE RECLINER. STATES HE NEEDED TO GO TO THE BATHROOM. THERAPIST AND RN MOVED PT BACK TO CHAIR AND REPOSITIONED CHAIR CLOSE TO BED WITH CALL LIGHT IN REACH. VSS, HYPERTENSIVE BUT NO MORE THAN PRIOR LEVELS THIS SHIFT. PAYROLL BENEFITS ADMINISTRATOR AND DR AMBROSIO NOTIFIED. NO NEW ORDERS
--- NOTE | 2018-11-26 17:40 | NUR ---
SHIFT SUMMARY: PT TRANSFERRED TO ROOM 3. ROLLED OUT OF CHAIR THIS SHIFT. AND HARDENER HELPER AWARE. PT NOW WEARING YELLOW GOWN PER HOSPITAL POLICY. FALL RISK LIGHT ILLUMINATED AND BED ALARM ON. DR IQBAL EVALUATED PT THIS SHIFT. SEE NEW ORDERS. NO FURTHER NEEDS OR CONCERNS AT THIS TIME.
--- NOTE | 2018-11-26 19:49 | NUR ---
PT ARRIVED TO ROOM AT 1917 FROM RECOVERY. PT ARRIVES ON BIPAP, NOT RESPONDING TO VOICE. MOANS TO STERNAL RUB. BIPAP SETTINGS 16/8 40% SATS 94%. LS COARSE DIM BILATERAL BASES. TEMP 95.8 SKIN COOL TO THE TOUCH. PT DIAPHORETIC. POC BLOOD GLUCOSE 127. COLOSTOMY BAG INTACT DRAINING YELLOW/BROWN LIQUID STOOL. DOMINGO PATENT DRAINING CLEAR YELLOW URINE.
--- NOTE | 2018-11-26 19:57 | NUR ---
PT'S DAUGHTER JOSE CAME TO BEDSIDE. PT SHOOK HEAD WHEN DAUGHTER TRIED TO WAKE HIM. JOSE LEFT PHONE NUMBER ON BOARD THEN LEFT THE ROOM.
--- NOTE | 2018-11-26 19:58 | NUR ---
BEAR HUGGER AND WARM BLANKETS APPLIED SHORTLY AFTER PT'S ARRIVAL. PT CURRENT TEMPTERATURE 96.2'F.
--- NOTE | 2018-11-26 22:46 | NUR ---
PT PLEASANT. WATCHING TV. PLAYING WITH NEWSPAPER WHILE LYING IN BED.
[2018-11-27 04:25] LABS: BASOPHILS ABSOLUTE AUTO 0.05 K/mm3 (0.00-0.23); BASOPHILS PERCENT AUTO 0 % (0-2); EOSINOPHILS PERCENT AUTO 2 % (0-6); Hematocrit 30.6 % (37.0-53.0); Hemoglobin 9.6 g/dL (13.5-17.5); IMMATURE GRAN PERCENT AUTO 1 % (0-1); LYMPHOCYTES ABSOLUTE AUTO 2.51 K/mm3 (0.84-5.20); LYMPHOCYTES PERCENT AUTO 19 % (21-46); MONOCYTES ABSOLUTE AUTO 0.88 K/mm3 (0.16-1.47); MONOCYTES PERCENT AUTO 7 % (4-13); Mean Corpuscular HGB 28.5 pg (26.0-34.0); Mean Corpuscular HGB Conc 31.4 g/dL (31.5-36.5); Mean Corpuscular Volume 91 fL (80-100); Mean Platelet Volume 8.7 fL (9.1-12.4); NEUTROPHILS ABSOLUTE AUTO 9.31 K/mm3 (1.96-9.15); NEUTROPHILS PERCENT AUTO 71 % (41-73); Platelet Count 784 K/mm3 (150-400); RDW Coefficient Variation 14.9 % (11.7-14.2); RDW Standard Deviation 49.3 fL (35.1-46.3); Red Blood Cell Count 3.37 M/mm3 (4.30-5.90); White Blood Cell Count 13.05 K/mm3 (4.00-11.30)
[2018-11-27 04:44] LABS: Albumin, Blood 2.6 g/dL (3.4-5.0); Anion Gap 7 mmol/L (6-16); Blood Urea Nitrogen 11 mg/dL (8-24); Bun/Creatinine Ratio 14.8 (12.0-20.0); CO2, Blood 24 mmol/L (21-32); Calcium, Blood 8.8 mg/dL (8.5-10.1); Chloride, Blood 110 mmol/L (98-108); Creatinine, Blood 0.74 mg/dL (0.60-1.20); Glomerular Filtration Rate >60 (60-); Glucose, Blood 89 mg/dL (70-99); Phosphorus, Blood 3.3 mg/dL (2.5-4.9); Potassium, Blood 3.6 mmol/L (3.5-5.5); Sodium, Blood 141 mmol/L (136-145)
--- NOTE | 2018-11-27 04:58 | NUR ---
PT GROWING MORE AGITATED T/O MORNING. PT HAS STATED SINCE START OF SHIFT THAT HE WANTS TO GO HOME AND CAN DISCUSS THIS WITH THE DOCTOR. CURRENTY PT WANTING TO GO OUTSIDE TO SMOKE AND ASKING ABOUT WHERE HIS BELONGINGS ARE. PT'S BELONGINGS FOUND IN ICU ROOM 10 AND WERE BROUGHT TO PATIENT. PT GOING THROUGH HIS BAGS OF BELONGING LOOKING FOR HIS HEARING AIDES AND CELL PHONE. WILL CONTINUE TO TRY AND CALM PT. SEROQUEL PRN GIVEN.
--- NOTE | 2018-11-27 05:07 | NUR ---
PT REFUSING MEDS. PT STATED, "NO MORE MEDS". SYNTHROID AND KEPPRA ON HOLD.
--- NOTE | 2018-11-27 05:14 | NUR ---
PT TOSSING BELONGINGS ON FLOOR AND THROWING OTHER ITEMS TOWARDS TRASH CAN. PT NOW WITH PANTS ON BUT IS NOT PULLING AT LINES OR CORDS.
--- NOTE | 2018-11-27 05:43 | NUR ---
PT WITH ONLY ONE HEARING AIDE FOUND IN HIS BELONGING BAGS. JAVA TECH LEAD LOOKING IN ROOM WHERE PT WAS BROUGHT FROM TODAY AND NONE FOUND. PT SEEMINGLY CALMING DOWN. WILL CONTINUE TO DEFUSE PT'S AGITATION MUCH POSSIBLE.
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
--- NOTE | 2018-11-27 07:47 | NUR ---
REFUSED BREAKFAST: PT STATES ONLY COFFEE, MILK AND ICE CREAM. PT EDUCATED TO DRINK THIN LIQUIDS WITH A SPOON. WILL CONTINUE TO MONITOR.
--- NOTE | 2018-11-27 07:58 | NUR ---
AT BEDSIDE: DR AMBROSIO AT BEDSIDE STATES PT WILL PROBABLY NEED TO BE DISCHARGED TO A MEMORY CARE FACILITY. VERBALY ORDERS TO CHANGE STATUS TO MEDICAL.
--- NOTE | 2018-11-27 08:15 | NUR ---
PT UPDATED: NOTIFIED PT OF TRANSFER ORDER TO MEDICAL FLOOR AND PT STATES HE IS GOING TO GO OUTSIDE TO SMOKE. EDUCATED HE CAN'T GO OUTSIDE INDEPENDENTLY D/T BEING UNSTEADY ON HIS FEET. PT ASKS IF HE CAN GO TO [facility] TO PURCHASE CLEAN PANTS AND SHIRT, EDUCATED PT CAN'T LEAVE WHILE UNDER MEDICAL CARE. PT APPEARS TO BE COOPERATIVE AT THIS TIME AND DOES NOT APPEAR TO BE PLANING ON LEAVING AMA. WILL CONTINUE TO MONITOR
--- NOTE | 2018-11-27 09:09 | NUR ---
DR SMITH AT BEDSIDE: DISCUSED WITH PT ABOUT NEED FOR REMAINING IN HOSPITAL. PT STATES WANTING TO GO SMOKE, DR TO ORDER NICOTINE PATCH AND GUM FOR PT. NEW ODERS TO TRANSFER TO PCU RATHER THAN MED D/T HIGH ACUITY AND PT NEEDS.
--- NOTE | 2018-11-27 10:18 | NUR ---
TRANSFER TO U9 REPORT GIVEN TO SYED GANNON. PT TRANSFERED BY WHEELCHAIR. NO SIGNS OF DISTRESS NOTED.
--- NOTE | 2018-11-27 10:24 | NUR ---
Received report from Samanta Lilly RN. Pt received from ICU; came over in a wheelchair and transferred into recliner chair with minimal assistance. He is pleasant, very talkative, and cooperative. Some confusion noted: he offered information that his mom had just had a birthday on November 22, and that his own birthday was coming up "next month", which he then told me was 1955. Various confusing remarks made by the patient. but he is mostly oriented, and able to cooperate. He is wearing his own pants and shoes; does not want to wear hospital clothes and states he also does not want to eat hospital food and will order "out" today.
--- NOTE | 2018-11-27 10:45 | NUR ---
Dressings on his abdomen noted clean, dry and intact, dated 11/23/18. These were removed, and noted to not have any drainage on them, dry or moist. No active drainage noted. Right upper quadrant scab noted about 1 cm.. Steristrip noted medial to this, looks about like a 1-2 cm incision. Umbilical incision is also covered with a steristrip and is about 3 cm long. Edges approximated, steristrips are all intact. Upon return to the room following physical therapy ambulating with the pt the loop of U, the pt felt suddenly faint at the sight of a NS flush syringe being brought to flush his PICC line. While standing with the walker, he closed his eyes and knees began to buckle. He was standing just in front of the recliner and was assisted to a seated position. He did not lose consciousness, but said that he felt loopy. He said that anything like that: knives, scalpels, needles, etc. all make him feel faint. He is now sitting in the recliner with chair alarm on, watching TV, and talking to me.
--- NOTE | 2018-11-27 14:33 | NUR ---
the pt was assisted by staff from the bed to the chair. He has been refusing the food since arrival to [facility], except for crackers and cheese. States he doesn't like the [place] food from the dietary services.
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
--- NOTE | 2018-11-27 17:40 | NUR ---
SUMMARY The pt has been alert, oriented to person, place, ongoing events and following directions, but he is forgetful and has less than logical reasoning skills. He requires frequent reminders and direction to complete ADLs, but he displays a lot of motivation to be physically active by getting up to the chair, using the walker to go to the bathroom, repositioning himself readily in chair and bed. He is frequently engaging the staff in conversation. Poor appetite, but this could be due to his stated dislike of the hospital food. Voiding dark yellow urine and I was told in report he had a normal BM this morning in ICU. He has been OOB to the chair for meals, and OOB to use the BSC with staff assistance. Wounds on his abdomen appear to be healing very well, with no noted drainage and the pt had no c/o pain except when he was tightening his belt and stated that there was some soreness if his belt was too tight. Steristrips over the umbilicus and right upper quadrant closest to the midline are intact. One wound over the right upper quadrant laterally located is without steristrips but has a small, dry scab which is fading. NO redness, swelling noted in any area. Telemetry monitoring has shown sinustachycardia, rate in the 100-118 range since his arrival to our unit. No dyspnea or shortness of breath at rest or with activity. Maintaining good spO2 on room air. No cough. He states that he is quitting smoking, since he hasn't smoked in about a month now. NIcotine patch noted in place on his right deltoid. The pt is very sensitive to the suggestion or appearance of needles/syringes and reacts best when IV flushes or SC injections are given with him in a supine position to minimize the risk of his fainting. He stated that he does not tolerate them well at all. See previous note today regarding his reaction while standing to a NS flush.
[2018-11-28 03:47] LABS: BASOPHILS ABSOLUTE AUTO 0.04 K/mm3 (0.00-0.23); BASOPHILS PERCENT AUTO 0 % (0-2); EOSINOPHILS ABSOLUTE AUTO 0.27 K/mm3 (0.00-0.68); EOSINOPHILS PERCENT AUTO 2 % (0-6); Hemoglobin 8.9 g/dL (13.5-17.5); IMMATURE GRAN ABSOLUTE AUTO 0.12 K/mm3 (0.00-0.10); IMMATURE GRAN PERCENT AUTO 1 % (0-1); LYMPHOCYTES ABSOLUTE AUTO 2.56 K/mm3 (0.84-5.20); LYMPHOCYTES PERCENT AUTO 18 % (21-46); MONOCYTES ABSOLUTE AUTO 0.93 K/mm3 (0.16-1.47); MONOCYTES PERCENT AUTO 6 % (4-13); Mean Corpuscular HGB 28.3 pg (26.0-34.0); Mean Corpuscular HGB Conc 31.8 g/dL (31.5-36.5); Mean Corpuscular Volume 89 fL (80-100); Mean Platelet Volume 8.7 fL (9.1-12.4); NEUTROPHILS ABSOLUTE AUTO 10.63 K/mm3 (1.96-9.15); NEUTROPHILS PERCENT AUTO 73 % (41-73); Platelet Count 799 K/mm3 (150-400); RDW Standard Deviation 48.6 fL (35.1-46.3); Red Blood Cell Count 3.15 M/mm3 (4.30-5.90); White Blood Cell Count 14.55 K/mm3 (4.00-11.30)
--- NOTE | 2018-11-28 06:41 | NUR ---
SHIFT SUMMARY PATIENT ALERT AND ABLE TO ANSWER QUESTIONS APPROPRIATELY FOR THE MOST PART, HOWEVER, PATIENT DOES CONFUSE HIS ANSWERS OCCATIONALLY AND WILL FREQUENTLY TALK ABOUT HIS TIME IN [facility]. PATIENT CHEERFUL FOR MOST OF THE NIGHT BUT DID BECOME TEARFUL FOR A SHORT PERIOD OF TIME. PATIENT'S CONVERSATIONS JUMP FORM IDEA TO IDEA QUICKLY AND PATIENT IS OCCATIONALLY UNABLE TO FINISH HIS TRAIN OF THOUGHT DUE TO ANOTHER THOUGHT COMING UP. OTHER TIMES PATIENT WILL GET FOCUSED ON SOMETHING AND WILL BE UNABLE TO DO ANYTHING ELSE UNTIL THE TASK FOCUSED ON IS COMPLETED. PATIENT REFUSED PAIN MEDICATION MOST OF THE NIGHT BUT ACCEPTED IT ONCE LAST NIGHT. PATIENT APPEARED TO BE AWAKE MOST OF THE NIGHT BUT DID APPEAR TO NAP ON AND OFF LAST NIGHT. PATIENT CURRENTLY RESTING IN BED WATHCING TV. BED ALARM ON FOR SAFETY. WILL CONTINUE TO MONITOR PATIENT AND REPORT TO ONCOMING RN.
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
--- NOTE | 2018-11-28 09:32 | NUR ---
NURSING PCU TRANSFER SUMMARY: Pt has continued to c/o abd/rib/chest pain t/o the a.m., worsens w/movement and deep inspiration, treating w/meds as ordered. Seen by PMD, pt changed to medical status w/o tele, bed assignment received, awaiting call from accepting RN for telephone report. Pt denies any current questions/needs. Call light in reach and bed alarm set for safety. Will xfer pt via w/c once rpt is given, monitor until xfer is complete.
--- NOTE | 2018-11-28 18:12 | NUR ---
PATIENT TRANFERRED TO MED UNIT TODAY. HE IS ALERT BUT OFTEN CONFUSED AT TIMES.HE IS PLEASANT AND COOPERATIVE WITH CARES BUT HAS FLIGHTS OF FANCY AND IS OFTEN NON SENSICAL. HIS FRIEND STOPPED BY AND STATED THAT "THIS IS NOT DALJIT". THIS NURSE ASKED WHAT HE MEANT AND HE SAID THAT DALJIT IS NOT NORMALLY LIKE THIS MENTALLY. HE WONT USE HIS CALL LIGHT AND HAS FIGURED OUT HOW TO TURN OFF HIS BED ALARM AND HAS BEEN REPORTED BY THE VIDEO MONITOR THAT HE IS UP BY THE WINDOW. HE IS UNSTEADY ON FEET AND THIS NURSE FEELS THAT HE IS A FALLS RISK AT THIS TIME. HE HAS NOT COMPLAINED OF ANY PAIN WHILE HERE. HE IS EXTREMELY AFRAID OF NEEDLES OR SYRINGES OF ANY KIND. HE WILL TAKE INJECTIONS BUT DOES REQUIRE DISTRACTION . NO SOB, NV NOTED. HE IS CONTINENT OF BB.
--- NOTE | 2018-11-29 11:29 | NUR ---
DONNA, [facility] BOX SORTER NOTIFIED THIS RN THAT PT WAS POSSIBLY USING A POCKET KNIVE IN ROOM. THIS RN TO ROOM, PT HAS POCKET KNIVE IN HAND, ASKED PT TO CLOSE AND SET THE KNIVE DOWN. PT COMPLIED. RETREIVED KNIVE, AND GAVE IT TO PRIMARY RN FLO.
--- NOTE | 2018-11-29 17:26 | NUR ---
SUMMARY PT RESTING QUIETLY IN BED, WAKES EASILY, HAS BEEN MED PER EMAR FOR PAIN AND ANXIETY, PT MOSTLY ORIENTED AND COOPERATIVE, IS VERY IMPULSIVE AND DOES NOT USE HIS CALL LIGHT AND IS DISORIENTED TO DATE AND EVENT, BED AND CHAIR ALARM ON FOR SAFETY, VSS, NO ACUTE CHANGES, WILL CONT TO MONITOR
--- NOTE | 2018-11-30 05:48 | NUR ---
*SHIFT SUMMARY* PT IS ALERT AT TIMES. PT HAD A LONG MOMENT OF CONFUSION AND AGITATION. PT KEPT SAYING HE WAS LEAVING. THEN WOULD GO INTO BATHROOM AND PLAY IN THE WATER IN SHOWER. PT THREW HIS HEARING AID IN SHOWER. PT CONTINUED TO SAY THAT STAFF WAS LAUGHING AT HIM AND WE WEREN'T TRUSTWORTHY. PT WAS PLACED IN DONIS VEST FOR SAFETY. MEDS ALSO GIVEN TO RELAX PT, SEE EMAR. ABOUT TWO HOURS AFTER BEING MEDICATED PT BECAME LESS ORIENTED AND APOLOGETIC TO STAFF. PT SLEPT REST OF NIGHT WITHOUT COMPLAINTS.
--- NOTE | 2018-11-30 17:02 | NUR ---
SUMMARY PT HAS BEEN PLEASANT AND COOPERATIVE WITH CARE T/O THE DAY, PT REMAINS CONFUSED OFF AND ON, IS IMPULSIVE AND DOES NOT USE HIS CALL LIGHT, BED ALARM ON FOR SAFETY, PT HAS HAD SEVERAL VISITORS IN TO SEE HIM, HIS "UNCLE AMINATA" HAS TAKEN HIM OUT VIA WHEELCHAIR FOR SOME "FRESH AIR" WITH THE PROMISE TO BRING HIM BACK, VSS NO ACUTE CHANGES, WILL CONT TO MONITOR
--- NOTE | 2018-11-30 18:02 | NUR ---
PT BACK TO HIS ROOM WITH HIS FRIEND
[2018-12-01 05:03] LABS: Hematocrit 27.1 % (37.0-53.0); Hemoglobin 8.4 g/dL (13.5-17.5); Mean Corpuscular HGB 28.2 pg (26.0-34.0); Mean Corpuscular Volume 91 fL (80-100); Mean Platelet Volume 8.6 fL (9.1-12.4); Platelet Count 813 K/mm3 (150-400); RDW Coefficient Variation 15.5 % (11.7-14.2); Red Blood Cell Count 2.98 M/mm3 (4.30-5.90); White Blood Cell Count 15.18 K/mm3 (4.00-11.30)
[2018-12-01 05:20] LABS: Anion Gap 7 mmol/L (6-16); Blood Urea Nitrogen 18 mg/dL (8-24); Bun/Creatinine Ratio 20.1 (12.0-20.0); CO2, Blood 24 mmol/L (21-32); Calcium, Blood 8.4 mg/dL (8.5-10.1); Chloride, Blood 108 mmol/L (98-108); Glomerular Filtration Rate >60 (60-); Glucose, Blood 120 mg/dL (70-99); Potassium, Blood 3.4 mmol/L (3.5-5.5); Sodium, Blood 139 mmol/L (136-145)
--- NOTE | 2018-12-01 05:27 | NUR ---
*SHIFT SUMMARY* PT IS ALERT TO SELF AND FOLLOWS DIRECTIONS WELL. PT IS CONFUSED AND OFTEN REPEATS THE SAME STORY OVER AND OVER. PT WAS PLEASANT COOPERATIVE ALL SHIFT. VITAL SIGNS STABLE. NO NEW CHANGES.
[2018-12-01] MEDS ORDERED: LEVE500 PO (14:06)
[2018-12-01] MEDS ORDERED: QUET100 PO (14:07)
--- NOTE | 2018-12-01 14:20 | NUR ---
PT. DISCHARGED HOME WITH UNCLE. MEDS FAXED TO [facility] AND PT. INSTRUCTED TO [facility].
[2018-12-06] MEDS ORDERED: Norco 5-325 Ta1 EACH PO (21:02)
== END 2018-12-01 14:20 | disposition home or self-care (01) | DRG 907 ==
LOC: ORSCMMR 06:59 → ORD 09:15 → ORSCMMR 09:15 → ORD 09:45 → ORSCMMR 16:29 → ICUW 16:32 → ICUE 16:32 → SURS 11-19 01:55 → ICUW 11-20 02:35 → ICUE 11-26 17:19 → PCU 11-27 10:18 → MEDS 11-28 12:05
PROVIDERS: Internal Medicine; Internal Medicine Critical Care Medicine; Internal Medicine Pulmonary Disease; ADMIT Surgery
PROC: 0BH17EZ Insertion of Endotracheal Airway into Trachea, Via Natural or Artificial Opening (ICD-10-PCS; 2018-11-10)
PROC: 5A1955Z Respiratory Ventilation, Greater than 96 Consecutive Hours (ICD-10-PCS; 2018-11-10)
PROC: 02HV33Z Insertion of Infusion Device into Superior Vena Cava, Percutaneous Approach (ICD-10-PCS; 2018-11-10)
PROC: 0FT44ZZ Resection of Gallbladder, Percutaneous Endoscopic Approach (ICD-10-PCS; 2018-11-10)
PROC: BF03YZZ Plain Radiography of Gallbladder and Bile Ducts using Other Contrast (ICD-10-PCS; 2018-11-10)
PROC: 0W3G0ZZ Control Bleeding in Peritoneal Cavity, Open Approach (ICD-10-PCS; principal; 2018-11-10 09:15)
DX: K91.840 Postprocedural hemorrhage of a digestive system organ or structure following a digestive system procedure (principal); J95.821 Acute postprocedural respiratory failure; G92 Toxic encephalopathy; K80.10 Calculus of gallbladder with chronic cholecystitis without obstruction; E87.0 Hyperosmolality and hypernatremia; D62 Acute posthemorrhagic anemia; F05 Delirium due to known physiological condition; T81.19XA Other postprocedural shock, initial encounter; I25.10 Atherosclerotic heart disease of native coronary artery without angina pectoris; E03.9 Hypothyroidism, unspecified; I10 Essential (primary) hypertension; F17.210 Nicotine dependence, cigarettes, uncomplicated; I95.9 Hypotension, unspecified; Z79.01 Long term (current) use of anticoagulants; Z95.5 Presence of coronary angioplasty implant and graft; F15.920 Other stimulant use, unspecified with intoxication, uncomplicated; R56.9 Unspecified convulsions; F03.90 Unspecified dementia, unspecified severity, without behavioral disturbance, psychotic disturbance, mood disturbance, and anxiety; Z79.82 Long term (current) use of aspirin
CPT/HCPCS: 31500; 31720; 36415; 36430; 36569; 36600; 51702; 70450; 71045; 74300; 76770; 80048; 80053; 80069; 81001; 82248; 82330; 82803; 82947; 83605; 83735; 84100; 84478; 84484; 85014; 85018; 85025; 85027; 86850; 86900; 86901; 86923; 88304; 92507; 92523; 92526; 92610; 93005; 93010; 94002; 94003; 94640; 94760; 95819; 97110; 97116; 97161; 97164; 97166; 97168; 97530; 97535; C1729; C1751; C9113; J0330; J0690; J0696; J1100; J1170; J1644; J1650; J1885; J1940; J1953; J1956; J2060; J2250; J2370; J2405; J2543; J2704; J2710; J2997; J3010; J3480; J7030; J7040; J7060; J7120; P9016; P9035; P9046; P9059

== ENCOUNTER 2019-12-27 09:51 | Emergency (ER) | payer OTHER ==
[~2019-12-27 09:51] MED LIST changes: -ASPI81CH PO; +LEVE500 PO; +Norco 5-325 Ta1 EACH PO; +QUET100 PO; +ST. JOSEPH ASPI81 MG PO
[2019-12-27 10:31] LABS: BASOPHILS ABSOLUTE AUTO 0.07 K/mm3 (0.00-0.23); BASOPHILS PERCENT AUTO 1 % (0-2); EOSINOPHILS ABSOLUTE AUTO 0.29 K/mm3 (0.00-0.68); EOSINOPHILS PERCENT AUTO 3 % (0-6); Hematocrit 47.7 % (37.0-53.0); Hemoglobin 15.1 g/dL (13.5-17.5); IMMATURE GRAN ABSOLUTE AUTO 0.07 K/mm3 (0.00-0.10); IMMATURE GRAN PERCENT AUTO 1 % (0-1); LYMPHOCYTES ABSOLUTE AUTO 2.49 K/mm3 (0.84-5.20); LYMPHOCYTES PERCENT AUTO 26 % (21-46); MONOCYTES PERCENT AUTO 5 % (4-13); Mean Corpuscular HGB 28.5 pg (26.0-34.0); Mean Corpuscular HGB Conc 31.7 g/dL (31.5-36.5); Mean Corpuscular Volume 90 fL (80-100); Mean Platelet Volume 8.9 fL (9.1-12.4); NEUTROPHILS PERCENT AUTO 64 % (41-73); Platelet Count 333 K/mm3 (150-400); RDW Coefficient Variation 15.8 % (11.7-14.2); RDW Standard Deviation 51.8 fL (35.1-46.3); White Blood Cell Count 9.52 K/mm3 (4.00-11.30)
[2019-12-27 10:52] LABS: A. Partial Thromboplastin Time 26.8 Sec (25.0-34.0); International Normalized Ratio 0.93
[2019-12-27 10:58] LABS: Alanine Aminotransfer (ALT/SGP 30 U/L (12-78); Albumin, Blood 3.7 g/dL (3.4-5.0); Albumin/Globulin Ratio 1.1 (0.8-1.8); Alk Phos 99 U/L (50-136); Anion Gap 9 mmol/L (6-16); Aspartate Aminotrans (AST/SGOT 24 U/L (12-37); Bilirubin, Total 0.4 mg/dL (0.1-1.0); Blood Urea Nitrogen 17 mg/dL (8-24); Bun/Creatinine Ratio 18.2 (12.0-20.0); CO2, Blood 24 mmol/L (21-32); Calcium, Blood 8.5 mg/dL (8.5-10.1); Chloride, Blood 105 mmol/L (98-108); Creatinine, Blood 0.93 mg/dL (0.60-1.20); Globulin, Blood 3.5 g/dL (2.2-4.0); Glomerular Filtration Rate >60 (60-); Glucose, Blood 133 mg/dL (70-99); Potassium, Blood 4.2 mmol/L (3.5-5.5); Sodium, Blood 138 mmol/L (136-145); Total Protein, Blood 7.2 g/dL (6.4-8.2); Troponin I 0.024 ng/mL (0.000-0.040)
[2019-12-27] MEDS ORDERED: FURO20 PO (13:10)
[2019-12-27] MEDS ORDERED: DOXY100 PO (13:10)
== END 2019-12-27 13:43 | disposition home or self-care (01) ==
PROVIDERS: Emergency Medicine
DX: L03.311 Cellulitis of abdominal wall (principal); R60.0 Localized edema; F15.10 Other stimulant abuse, uncomplicated; N28.1 Cyst of kidney, acquired; G40.909 Epilepsy, unspecified, not intractable, without status epilepticus; I10 Essential (primary) hypertension; E03.9 Hypothyroidism, unspecified; I25.10 Atherosclerotic heart disease of native coronary artery without angina pectoris; F03.90 Unspecified dementia, unspecified severity, without behavioral disturbance, psychotic disturbance, mood disturbance, and anxiety; K21.9 Gastro-esophageal reflux disease without esophagitis; F17.200 Nicotine dependence, unspecified, uncomplicated; Z88.5 Allergy status to narcotic agent; Z91.030 Bee allergy status; Z79.82 Long term (current) use of aspirin; Z79.899 Other long term (current) drug therapy

== ENCOUNTER 2019-12-28 15:26 | Emergency (ER) | payer OTHER ==
[~2019-12-28] VITALS: Ht 165.1 cm; Wt 104.3 kg
[~2019-12-28 15:26] MED LIST changes: +DOXY100 PO; +FURO20 PO
== END 2019-12-28 17:04 | disposition home or self-care (01) ==
LOC: ER 15:26
DX: I11.0 Hypertensive heart disease with heart failure (principal); I50.9 Heart failure, unspecified; J44.9 Chronic obstructive pulmonary disease, unspecified; F15.10 Other stimulant abuse, uncomplicated; I25.10 Atherosclerotic heart disease of native coronary artery without angina pectoris; G40.909 Epilepsy, unspecified, not intractable, without status epilepticus; E03.9 Hypothyroidism, unspecified; F03.90 Unspecified dementia, unspecified severity, without behavioral disturbance, psychotic disturbance, mood disturbance, and anxiety; K21.9 Gastro-esophageal reflux disease without esophagitis; F17.200 Nicotine dependence, unspecified, uncomplicated; Z91.030 Bee allergy status; Z88.5 Allergy status to narcotic agent; Z79.899 Other long term (current) drug therapy; Z79.82 Long term (current) use of aspirin
CPT/HCPCS: 84484; 93005; 93010; 96374; 99284-25; J1940

== ENCOUNTER 2020-07-26 04:20 | Emergency (ER) | payer OTHER ==
[~2020-07-26] VITALS: Ht 162.6 cm; Wt 99.8 kg
[~2020-07-26 04:20] MED LIST changes: +Aspirin EC81 MG PO; +Lasix20 MG PO; +Synthroid112 MCG PO
[2020-07-26 04:32] LABS: BASOPHILS ABSOLUTE AUTO 0.06 K/mm3 (0.00-0.23); BASOPHILS PERCENT AUTO 1 % (0-2); EOSINOPHILS ABSOLUTE AUTO 0.37 K/mm3 (0.00-0.68); EOSINOPHILS PERCENT AUTO 3 % (0-6); Hematocrit 48.3 % (37.0-53.0); Hemoglobin 14.9 g/dL (13.5-17.5); IMMATURE GRAN ABSOLUTE AUTO 0.06 K/mm3 (0.00-0.10); IMMATURE GRAN PERCENT AUTO 1 % (0-1); LYMPHOCYTES ABSOLUTE AUTO 2.82 K/mm3 (0.84-5.20); LYMPHOCYTES PERCENT AUTO 23 % (21-46); MONOCYTES ABSOLUTE AUTO 0.71 K/mm3 (0.16-1.47); MONOCYTES PERCENT AUTO 6 % (4-13); Mean Corpuscular HGB 27.5 pg (26.0-34.0); Mean Corpuscular HGB Conc 30.8 g/dL (31.5-36.5); Mean Corpuscular Volume 89 fL (80-100); Mean Platelet Volume 8.9 fL (9.1-12.4); NEUTROPHILS ABSOLUTE AUTO 8.06 K/mm3 (1.96-9.15); NEUTROPHILS PERCENT AUTO 67 % (41-73); Platelet Count 382 K/mm3 (150-400); RDW Coefficient Variation 15.6 % (11.7-14.2); RDW Standard Deviation 51.3 fL (35.1-46.3); Red Blood Cell Count 5.41 M/mm3 (4.30-5.90); White Blood Cell Count 12.08 K/mm3 (4.00-11.30)
[2020-07-26 04:52] LABS: Alanine Aminotransfer (ALT/SGP 24 U/L (12-78); Albumin, Blood 3.5 g/dL (3.4-5.0); Alk Phos 103 U/L (50-136); Anion Gap 5 mmol/L (6-16); Aspartate Aminotrans (AST/SGOT 25 U/L (12-37); Bilirubin, Total 0.4 mg/dL (0.1-1.0); Blood Urea Nitrogen 18 mg/dL (8-24); Bun/Creatinine Ratio 17.5 (12.0-20.0); CO2, Blood 27 mmol/L (21-32); Calcium, Blood 8.9 mg/dL (8.5-10.1); Chloride, Blood 111 mmol/L (98-108); Creatinine, Blood 1.03 mg/dL (0.60-1.20); Globulin, Blood 3.4 g/dL (2.2-4.0); Glomerular Filtration Rate >60 (60-); Glucose, Blood 112 mg/dL (70-99); Potassium, Blood 4.8 mmol/L (3.5-5.5); Sodium, Blood 143 mmol/L (136-145); Total Protein, Blood 6.9 g/dL (6.4-8.2)
[2020-07-26] MEDS ORDERED: Lasix40 MG PO (05:26)
== END 2020-07-26 05:36 | disposition home or self-care (01) ==
LOC: ER 04:20
PROVIDERS: Emergency Medicine
DX: I11.0 Hypertensive heart disease with heart failure (principal); I50.9 Heart failure, unspecified; E03.9 Hypothyroidism, unspecified; I25.10 Atherosclerotic heart disease of native coronary artery without angina pectoris; E78.00 Pure hypercholesterolemia, unspecified; F03.90 Unspecified dementia, unspecified severity, without behavioral disturbance, psychotic disturbance, mood disturbance, and anxiety; G40.909 Epilepsy, unspecified, not intractable, without status epilepticus; K21.9 Gastro-esophageal reflux disease without esophagitis; F17.210 Nicotine dependence, cigarettes, uncomplicated; Z95.5 Presence of coronary angioplasty implant and graft; Z88.5 Allergy status to narcotic agent; Z79.82 Long term (current) use of aspirin; Z91.030 Bee allergy status; Z79.899 Other long term (current) drug therapy
CPT/HCPCS: 71045; 80053; 83735; 83880; 84484; 85025; 93005; 93010; 96374; 99285-25; J1940

== ENCOUNTER 2020-10-11 20:23 | Emergency (ER) | payer OTHER ==
[~2020-10-11] VITALS: Ht 165.1 cm; Wt 95.2 kg
[~2020-10-11 20:23] MED LIST changes: +Lasix40 MG PO
[2020-10-11] MEDS ORDERED: STIOLTO RESPIMAT4 G1 IH (20:34)
[2020-10-11 20:49] LABS: BASOPHILS ABSOLUTE AUTO 0.08 K/mm3 (0.00-0.23); BASOPHILS PERCENT AUTO 1 % (0-2); EOSINOPHILS ABSOLUTE AUTO 0.22 K/mm3 (0.00-0.68); EOSINOPHILS PERCENT AUTO 2 % (0-6); Hematocrit 45.8 % (37.0-53.0); Hemoglobin 14.3 g/dL (13.5-17.5); IMMATURE GRAN ABSOLUTE AUTO 0.03 K/mm3 (0.00-0.10); IMMATURE GRAN PERCENT AUTO 0 % (0-1); LYMPHOCYTES ABSOLUTE AUTO 1.95 K/mm3 (0.84-5.20); LYMPHOCYTES PERCENT AUTO 18 % (21-46); MONOCYTES PERCENT AUTO 7 % (4-13); Mean Corpuscular HGB Conc 31.2 g/dL (31.5-36.5); Mean Corpuscular Volume 87 fL (80-100); Mean Platelet Volume 8.8 fL (9.1-12.4); NEUTROPHILS ABSOLUTE AUTO 7.83 K/mm3 (1.96-9.15); NEUTROPHILS PERCENT AUTO 72 % (41-73); Platelet Count 409 K/mm3 (150-400); RDW Coefficient Variation 16.5 % (11.7-14.2); RDW Standard Deviation 51.5 fL (35.1-46.3); Red Blood Cell Count 5.29 M/mm3 (4.30-5.90); White Blood Cell Count 10.91 K/mm3 (4.00-11.30)
[2020-10-11 21:04] LABS: International Normalized Ratio 1.14; Prothrombin Time Results 12.1 Sec (9.7-11.5)
[2020-10-11 21:23] LABS: Alanine Aminotransfer (ALT/SGP 64 U/L (12-78); Albumin, Blood 3.4 g/dL (3.4-5.0); Alk Phos 123 U/L (50-136); Anion Gap 8 mmol/L (6-16); Aspartate Aminotrans (AST/SGOT 54 U/L (12-37); Bilirubin, Total 0.9 mg/dL (0.1-1.0); Blood Urea Nitrogen 28 mg/dL (8-24); Bun/Creatinine Ratio 23.1 (12.0-20.0); CO2, Blood 23 mmol/L (21-32); Calcium, Blood 8.3 mg/dL (8.5-10.1); Chloride, Blood 109 mmol/L (98-108); Creatinine, Blood 1.21 mg/dL (0.60-1.20); Globulin, Blood 3.3 g/dL (2.2-4.0); Glomerular Filtration Rate >60 (60-); Glucose, Blood 102 mg/dL (70-99); Potassium, Blood 3.9 mmol/L (3.5-5.5); Sodium, Blood 140 mmol/L (136-145); Total Protein, Blood 6.7 g/dL (6.4-8.2); Troponin I 0.051 ng/mL (0.000-0.040)
[2020-10-11] MEDS ORDERED: ALBU90OI6 INH (21:36)
[2020-10-11] MEDS ORDERED: POTA10T PO (21:38)
[2020-10-11 23:45] LABS: U Amphetamine Screen DETECTED; U Barbituate Screen Not Detected; U Benzodiazapine Screen Not Detected; U Buprenorphine Screen Not Detected; U Cannabinoids Screen DETECTED; U Cocaine Screen Not Detected; U Methadone Screen Not Detected; U Methamphetamine Screen DETECTED; U Opiates Screen Not Detected; U Oxycodone Screen Not Detected; U Phencyclidine Screen Not Detected; U Propoxyphene Screen Not Detected
[2020-10-12] LABS: Influenza A, PCR NEGATIVE (NEGATIVE); Influenza B, PCR NEGATIVE (NEGATIVE); Resp Syncytial Virus, PCR NEGATIVE (NEGATIVE); SARS-Cov-2 (COVID-19) PCR, MMC NEGATIVE (NEGATIVE)
== END 2020-10-12 01:14 | disposition home or self-care (01) ==
LOC: ER 20:23
PROVIDERS: Physician Assistant; Student in an Organized Health Care Education/Training Program
DX: I11.0 Hypertensive heart disease with heart failure (principal); I50.9 Heart failure, unspecified; F15.10 Other stimulant abuse, uncomplicated; I25.10 Atherosclerotic heart disease of native coronary artery without angina pectoris; E03.9 Hypothyroidism, unspecified; E78.00 Pure hypercholesterolemia, unspecified; K21.9 Gastro-esophageal reflux disease without esophagitis; F17.210 Nicotine dependence, cigarettes, uncomplicated; Z20.822 Contact with and (suspected) exposure to COVID-19; Z88.5 Allergy status to narcotic agent; Z91.09 Other allergy status, other than to drugs and biological substances; Z91.030 Bee allergy status; Z79.899 Other long term (current) drug therapy; Z79.82 Long term (current) use of aspirin
CPT/HCPCS: 0241U; 36415; 71046; 80053; 83880; 84484; 85025; 85610; 93005; 93010; 94640; 96374; 99285-25; A9270; J1940

== ENCOUNTER 2020-10-26 12:57 | Observation (INO) | payer OTHER ==
[~2020-10-26] VITALS: Ht 170.2 cm; Wt 101.6 kg
[~2020-10-26 12:57] MED LIST changes: +ALBU90OI6 INH; +POTA10T PO; +STIOLTO RESPIMAT4 G1 IH
[2020-10-26] MEDS ORDERED: FURO40 PO (13:08)
[2020-10-26 14:17] LABS: BASOPHILS ABSOLUTE AUTO 0.07 K/mm3 (0.00-0.23); BASOPHILS PERCENT AUTO 1 % (0-2); EOSINOPHILS ABSOLUTE AUTO 0.42 K/mm3 (0.00-0.68); EOSINOPHILS PERCENT AUTO 4 % (0-6); Hematocrit 48.9 % (37.0-53.0); Hemoglobin 14.9 g/dL (13.5-17.5); IMMATURE GRAN ABSOLUTE AUTO 0.05 K/mm3 (0.00-0.10); IMMATURE GRAN PERCENT AUTO 1 % (0-1); LYMPHOCYTES ABSOLUTE AUTO 1.88 K/mm3 (0.84-5.20); LYMPHOCYTES PERCENT AUTO 17 % (21-46); MONOCYTES ABSOLUTE AUTO 0.47 K/mm3 (0.16-1.47); MONOCYTES PERCENT AUTO 4 % (4-13); Mean Corpuscular HGB 26.3 pg (26.0-34.0); Mean Corpuscular HGB Conc 30.5 g/dL (31.5-36.5); Mean Corpuscular Volume 86 fL (80-100); Mean Platelet Volume 8.8 fL (9.1-12.4); NEUTROPHILS ABSOLUTE AUTO 7.89 K/mm3 (1.96-9.15); NEUTROPHILS PERCENT AUTO 73 % (41-73); Platelet Count 463 K/mm3 (150-400); RDW Coefficient Variation 17.4 % (11.7-14.2); RDW Standard Deviation 52.7 fL (35.1-46.3); Red Blood Cell Count 5.67 M/mm3 (4.30-5.90); White Blood Cell Count 10.78 K/mm3 (4.00-11.30)
[2020-10-26 14:25] LABS: Alanine Aminotransfer (ALT/SGP 26 U/L (12-78); Albumin, Blood 3.3 g/dL (3.4-5.0); Albumin/Globulin Ratio 0.8 (0.8-1.8); Alk Phos 121 U/L (50-136); Anion Gap 5 mmol/L (6-16); Aspartate Aminotrans (AST/SGOT 27 U/L (12-37); Bilirubin, Total 0.6 mg/dL (0.1-1.0); Blood Urea Nitrogen 28 mg/dL (8-24); Bun/Creatinine Ratio 25.5 (12.0-20.0); CO2, Blood 29 mmol/L (21-32); Calcium, Blood 8.9 mg/dL (8.5-10.1); Chloride, Blood 107 mmol/L (98-108); Globulin, Blood 4.1 g/dL (2.2-4.0); Glomerular Filtration Rate >60 (60-); Glucose, Blood 116 mg/dL (70-99); Potassium, Blood 4.7 mmol/L (3.5-5.5); Sodium, Blood 141 mmol/L (136-145); Total Protein, Blood 7.4 g/dL (6.4-8.2); Troponin I 0.043 ng/mL (0.000-0.040)
[2020-10-26 15:09] LABS: Source, Urine Clean Catch
[2020-10-26 16:00] LABS: Appearance, Urine Clear (Clear); Bilirubin, Urine Neg (Neg); Blood, Urine Neg (Neg); Color, Urine Yellow (P-Yellow); Glucose Qualitative, Urine Neg (Neg); Ketones, Urine Neg (Neg); Leukocyte Esterase, Urine Neg (Neg); Nitrite, Urine Neg (Neg); Protein, Urine 2+ (Neg); Urobilinogen, Urine NORM (Normal)
[2020-10-26 16:34] LABS: Bacteria Rare /hpf; Red Blood Cells, Urine 0-2 /hpf (0-2); Squamous Epithelial Cells Not Seen /hpf (Few); White Blood Cells, Urine 0-2 /hpf (0-5)
--- NOTE | 2020-10-26 21:26 | NUR ---
1900 PT ARRIVED TO ROOM 361 PER CART FROM ER.
--- NOTE | 2020-10-27 04:27 | NUR ---
0420 DISCHARGE SUMMARY: PT PULLED OUT IV LEFT ANTECUBITAL AND TOSSED ON FLOOR AND REQUESTED TO BE DISCHARGED AMA; PT ADAMENT THAT HE NEEDS TO LEAVE AND IS REFUSING TO STAY IN HOSPITAL ANY LONGER; PT GIVEN AMA PAPER WHICH HE SIGNED; PT STATED, "I JUST WANT GO HOME AND SLEEP MY OWN BED"; PT VOICED HE WILL CALL SOMEONE FOR [facility] VIA HIS PERSONAL CELL PHONE WHICH HE HAS AT HIS SIDE; PT AMBULATED TO ELEVATOR WITHOUT ISSUES; THIS NURSE ADVISED ISMAEL SEN RN, CHARGE NURSE; DR ESTHER BARTH.
== END 2020-10-27 04:24 | disposition left against medical advice (07) ==
LOC: ER 12:57 → ERHOLD 12:58 → MEDS 18:52
PROVIDERS: Physician Assistant; ADMIT Internal Medicine
DX: I11.0 Hypertensive heart disease with heart failure (principal); I50.9 Heart failure, unspecified; J44.1 Chronic obstructive pulmonary disease with (acute) exacerbation; E03.9 Hypothyroidism, unspecified; G40.909 Epilepsy, unspecified, not intractable, without status epilepticus; F03.90 Unspecified dementia, unspecified severity, without behavioral disturbance, psychotic disturbance, mood disturbance, and anxiety; I25.10 Atherosclerotic heart disease of native coronary artery without angina pectoris; K21.9 Gastro-esophageal reflux disease without esophagitis; E78.5 Hyperlipidemia, unspecified; Z95.5 Presence of coronary angioplasty implant and graft; Z87.891 Personal history of nicotine dependence
CPT/HCPCS: 36415; 71046; 80053; 81001; 83880; 84484; 85025; 93005; 93010; 96372-59; 96374; 96375; 96376; 99285-25; A9270; G0378; J1650; J1940; J2060; J2930

== ENCOUNTER 2020-10-30 15:35 | Inpatient (IN) | payer OTHER ==
[~2020-10-30] VITALS: Ht 167.6 cm; Wt 101.6 kg
[~2020-10-30 15:35] MED LIST changes: +FURO40 PO
[2020-10-30 16:41] LABS: BASOPHILS ABSOLUTE AUTO 0.06 K/mm3 (0.00-0.23); BASOPHILS PERCENT AUTO 1 % (0-2); EOSINOPHILS ABSOLUTE AUTO 0.33 K/mm3 (0.00-0.68); EOSINOPHILS PERCENT AUTO 3 % (0-6); Hemoglobin 14.6 g/dL (13.5-17.5); IMMATURE GRAN ABSOLUTE AUTO 0.04 K/mm3 (0.00-0.10); IMMATURE GRAN PERCENT AUTO 0 % (0-1); LYMPHOCYTES ABSOLUTE AUTO 2.02 K/mm3 (0.84-5.20); LYMPHOCYTES PERCENT AUTO 19 % (21-46); MONOCYTES ABSOLUTE AUTO 0.62 K/mm3 (0.16-1.47); MONOCYTES PERCENT AUTO 6 % (4-13); Mean Corpuscular HGB 26.6 pg (26.0-34.0); Mean Corpuscular HGB Conc 31.1 g/dL (31.5-36.5); Mean Corpuscular Volume 86 fL (80-100); Mean Platelet Volume 9.1 fL (9.1-12.4); NEUTROPHILS ABSOLUTE AUTO 7.39 K/mm3 (1.96-9.15); NEUTROPHILS PERCENT AUTO 71 % (41-73); Platelet Count 477 K/mm3 (150-400); RDW Coefficient Variation 16.9 % (11.7-14.2); RDW Standard Deviation 51.6 fL (35.1-46.3); Red Blood Cell Count 5.49 M/mm3 (4.30-5.90); White Blood Cell Count 10.46 K/mm3 (4.00-11.30)
[2020-10-30 16:53] LABS: Source, Urine Voided
[2020-10-30 16:58] LABS: Appearance, Urine Clear (Clear); Bilirubin, Urine Neg (Neg); Blood, Urine Neg (Neg); Color, Urine Yellow (P-Yellow); Glucose Qualitative, Urine Neg (Neg); Ketones, Urine Neg (Neg); Leukocyte Esterase, Urine Neg (Neg); Nitrite, Urine Neg (Neg); Protein, Urine Neg (Neg); Specific Gravity, Urine 1.015 (1.003-1.022); Urobilinogen, Urine NORM (Normal)
[2020-10-30 17:12] LABS: Alanine Aminotransfer (ALT/SGP 32 U/L (12-78); Albumin, Blood 3.2 g/dL (3.4-5.0); Albumin/Globulin Ratio 0.9 (0.8-1.8); Alk Phos 107 U/L (50-136); Anion Gap 6 mmol/L (6-16); Aspartate Aminotrans (AST/SGOT 35 U/L (12-37); Bilirubin, Total 0.4 mg/dL (0.1-1.0); Blood Urea Nitrogen 33 mg/dL (8-24); Bun/Creatinine Ratio 35.1 (12.0-20.0); CO2, Blood 25 mmol/L (21-32); Calcium, Blood 8.5 mg/dL (8.5-10.1); Chloride, Blood 110 mmol/L (98-108); Creatinine, Blood 0.94 mg/dL (0.60-1.20); Globulin, Blood 3.6 g/dL (2.2-4.0); Glomerular Filtration Rate >60 (60-); Glucose, Blood 117 mg/dL (70-99); Potassium, Blood 4.6 mmol/L (3.5-5.5); Sodium, Blood 141 mmol/L (136-145); Total Protein, Blood 6.8 g/dL (6.4-8.2)
[2020-10-30 17:29] LABS: U Amphetamine Screen Not Detected; U Barbituate Screen Not Detected; U Benzodiazapine Screen Not Detected; U Cocaine Screen Not Detected; U Methadone Screen Not Detected; U Methamphetamine Screen Not Detected; U Opiates Screen Not Detected; U Phencyclidine Screen Not Detected
[2020-10-30 17:30] LABS: U Buprenorphine Screen Not Detected; U Cannabinoids Screen DETECTED; U Oxycodone Screen Not Detected; U Propoxyphene Screen Not Detected
[2020-10-30 17:39] LABS: Base Excess Venous 3.8 mmol/L; Bicarbonate Venous 25.3 mmol/L (24.0-30.0); PCO2 Venous 60.3 mmHg (38-42); PO2 Venous 36.7 mmHg (38-42); pH Blood Venous 7.31 (7.34-7.37)
[2020-10-30] MEDS ORDERED: Aspir 8181 MG PO (20:14)
--- NOTE | 2020-10-31 00:06 | NUR ---
MUSCLE CRAMPS PT COMPLAINING OF SEVERE MUSCLE CRAMPS IN LEGS AND BACK AFTER RECEIVING LASIKS IN ER. RECEIVED ONE TIME ORDER FOR PO POTASSIUM, MAGNESIUM, AND FLEXERILL.
[2020-10-31 00:55] LABS: Anion Gap 8 mmol/L (6-16); Blood Urea Nitrogen 29 mg/dL (8-24); Bun/Creatinine Ratio 26.9 (12.0-20.0); CO2, Blood 31 mmol/L (21-32); Calcium, Blood 8.1 mg/dL (8.5-10.1); Chloride, Blood 103 mmol/L (98-108); Creatinine, Blood 1.08 mg/dL (0.60-1.20); Glomerular Filtration Rate >60 (60-); Glucose, Blood 194 mg/dL (70-99); Potassium, Blood 3.2 mmol/L (3.5-5.5); Sodium, Blood 142 mmol/L (136-145)
--- NOTE | 2020-10-31 04:26 | NUR ---
SHIFT SUMMARY PT ER ADMIT THIS SHIFT FOR CHF EXACERBATION. HE RECEIVED 80 MG OF LASIKS IN THE ER, AND HAS HAD ADEQUATE OUTPUT, ABOUT 1600 MLS OUT. PT HAD CRAMPS IN HIS LEGS FOLLOWING LASIKS ADMINSTRATION. PT MEDICATED WITH PO MAGNESIUM, POTASSIUM AND FLEXERIL ORDERED, WITH EFFECT. SOB IMPROVED SINCE RECEIVING LASIKS. STILL SOB WITH EXERTION, SATS WNL ON RA. TROPONIN'S TRENDING DOWN. NO CHEST PAIN. TELE IN PLACE WITH SINUS RHYTHM. NO ACUTE CHANGES SINCE ADMISSION. BED IN LOWEST POSITION, CALL LIGHT WITHIN REACH.
[2020-10-31 07:18] LABS: Anion Gap 11 mmol/L (6-16); Blood Urea Nitrogen 30 mg/dL (8-24); Bun/Creatinine Ratio 28.8 (12.0-20.0); CO2, Blood 28 mmol/L (21-32); Calcium, Blood 8.3 mg/dL (8.5-10.1); Chloride, Blood 104 mmol/L (98-108); Creatinine, Blood 1.04 mg/dL (0.60-1.20); Glomerular Filtration Rate >60 (60-); Glucose, Blood 187 mg/dL (70-99); Magnesium, Blood 1.8 mg/dL (1.6-2.4); Potassium, Blood 3.4 mmol/L (3.5-5.5); Sodium, Blood 143 mmol/L (136-145)
--- NOTE | 2020-10-31 16:51 | NUR ---
SHIFT SUMMARY PT IS AOX2-3. PT DENIES PAIN, N/V, SOB. PT IS SBA IN ROOM FOR TRANSFERS. PT TELE RUNNING SINUS TACH AT 106. PT APPETITE IS GOOD. PT HAD AN ULTRASOUND OF THE ABDOMEN TODAY, IN ROOM. PT HAD A VISITOR THIS EVY. PT IS CURRENTLY IN THE CHAIR, CALL LIGHT IN REACH.
--- NOTE | 2020-11-01 00:39 | NUR ---
PATIENT CHOOSING TO LEAVE (AMA) AGAINST MEDICAL ADVICE. PATIENT AGITATED AND YELLING/SCREAMING. PERSONAL BELONGING TAKEN. PIV REMOVED. AMA FORM SIGNED.
== END 2020-11-01 00:40 | disposition left against medical advice (07) | DRG 280 ==
LOC: ER 15:35 → MEDS 21:00
PROVIDERS: Emergency Medicine; Family Medicine; ADMIT Hospitalist
PROC: 3E0234Z Introduction of Serum, Toxoid and Vaccine into Muscle, Percutaneous Approach (ICD-10-PCS; principal; 2020-10-30)
DX: I11.0 Hypertensive heart disease with heart failure (principal); I21.A1 Myocardial infarction type 2; J96.01 Acute respiratory failure with hypoxia; Z23 Encounter for immunization; I50.23 Acute on chronic systolic (congestive) heart failure; E03.9 Hypothyroidism, unspecified; G40.909 Epilepsy, unspecified, not intractable, without status epilepticus; F03.90 Unspecified dementia, unspecified severity, without behavioral disturbance, psychotic disturbance, mood disturbance, and anxiety; I25.10 Atherosclerotic heart disease of native coronary artery without angina pectoris; F43.10 Post-traumatic stress disorder, unspecified; F32.9 Major depressive disorder, single episode, unspecified; K21.9 Gastro-esophageal reflux disease without esophagitis; E78.5 Hyperlipidemia, unspecified; H91.93 Unspecified hearing loss, bilateral; M25.511 Pain in right shoulder; M25.512 Pain in left shoulder; G89.29 Other chronic pain; F17.210 Nicotine dependence, cigarettes, uncomplicated; R14.0 Abdominal distension (gaseous); E87.6 Hypokalemia; B18.2 Chronic viral hepatitis C; I25.2 Old myocardial infarction; Z95.5 Presence of coronary angioplasty implant and graft; Z90.49 Acquired absence of other specified parts of digestive tract; Z98.890 Other specified postprocedural states; Z91.030 Bee allergy status; Z88.5 Allergy status to narcotic agent; Z79.82 Long term (current) use of aspirin; Z79.899 Other long term (current) drug therapy
CPT/HCPCS: 36415; 71045; 76700; 80048; 80053; 81003; 82803; 83735; 83880; 84443; 84484; 85025; 93005; 93010; 94640; 94760; 96374; 96375; 99285-25; A9270; C8929; G0008; J1650; J1940; J2405; J7030; Q2038; Q9957

== ENCOUNTER 2020-11-07 07:06 | Observation (INO) | payer OTHER ==
[~2020-11-07] VITALS: Ht 177.8 cm; Wt 135.6 kg
[~2020-11-07 07:06] MED LIST changes: +Aspir 8181 MG PO
[2020-11-07 07:30] LABS: BASOPHILS ABSOLUTE AUTO 0.05 K/mm3 (0.00-0.23); BASOPHILS PERCENT AUTO 0 % (0-2); EOSINOPHILS ABSOLUTE AUTO 0.18 K/mm3 (0.00-0.68); EOSINOPHILS PERCENT AUTO 1 % (0-6); Hematocrit 45.8 % (37.0-53.0); Hemoglobin 14.2 g/dL (13.5-17.5); IMMATURE GRAN ABSOLUTE AUTO 0.13 K/mm3 (0.00-0.10); IMMATURE GRAN PERCENT AUTO 1 % (0-1); LYMPHOCYTES ABSOLUTE AUTO 1.98 K/mm3 (0.84-5.20); LYMPHOCYTES PERCENT AUTO 16 % (21-46); MONOCYTES ABSOLUTE AUTO 0.61 K/mm3 (0.16-1.47); MONOCYTES PERCENT AUTO 5 % (4-13); Mean Corpuscular HGB 25.9 pg (26.0-34.0); Mean Corpuscular Volume 83 fL (80-100); NEUTROPHILS ABSOLUTE AUTO 9.69 K/mm3 (1.96-9.15); NEUTROPHILS PERCENT AUTO 77 % (41-73); Platelet Count 401 K/mm3 (150-400); RDW Coefficient Variation 17.7 % (11.7-14.2); RDW Standard Deviation 50.4 fL (35.1-46.3); Red Blood Cell Count 5.49 M/mm3 (4.30-5.90); White Blood Cell Count 12.64 K/mm3 (4.00-11.30)
[2020-11-07 08:05] LABS: Alanine Aminotransfer (ALT/SGP 35 U/L (12-78); Albumin/Globulin Ratio 0.8 (0.8-1.8); Alk Phos 117 U/L (50-136); Anion Gap 6 mmol/L (6-16); Aspartate Aminotrans (AST/SGOT 36 U/L (12-37); Bilirubin, Total 0.4 mg/dL (0.1-1.0); Blood Urea Nitrogen 43 mg/dL (8-24); Bun/Creatinine Ratio 38.1 (12.0-20.0); CO2, Blood 28 mmol/L (21-32); CPK Creatine Kinase 241 U/L (39-308); Calcium, Blood 8.3 mg/dL (8.5-10.1); Chloride, Blood 102 mmol/L (98-108); Creatine Kinase MB 9.1 ng/mL (0.0-3.6); Creatine Kinase MB Index 3.8 (0.0-4.0); Creatinine, Blood 1.13 mg/dL (0.60-1.20); Free Thyroxine 0.74 ng/dL (0.70-1.60); Globulin, Blood 3.7 g/dL (2.2-4.0); Glomerular Filtration Rate >60 (60-); Glucose, Blood 168 mg/dL (70-99); Potassium, Blood 4.2 mmol/L (3.5-5.5); Sodium, Blood 136 mmol/L (136-145); Total Protein, Blood 6.7 g/dL (6.4-8.2); Troponin I 0.048 ng/mL (0.000-0.040)
[2020-11-07 08:18] LABS: PCO2 Arterial 51.5 mmHg (35-45); PO2 Arterial 65.7 mmHg (80-100); pH Blood Arterial 7.34 (7.35-7.45)
[2020-11-07 13:12] LABS: U Amphetamine Screen DETECTED; U Barbituate Screen Not Detected; U Benzodiazapine Screen Not Detected; U Cocaine Screen Not Detected; U Methadone Screen Not Detected; U Methamphetamine Screen DETECTED; U Opiates Screen Not Detected; U Phencyclidine Screen Not Detected
[2020-11-07 13:13] LABS: U Buprenorphine Screen Not Detected; U Cannabinoids Screen DETECTED; U Oxycodone Screen Not Detected; U Propoxyphene Screen Not Detected
--- NOTE | 2020-11-07 15:44 | NUR ---
PT ARRIVED TO FLOOR AT 1400. PT WAS ABLE TO BE A TWO PERSON ASSIST TO BED FROM WHEELCHAIR. PT AOX2-3 WITH CONFUSION. YELLS OUT AND IS IMPULSIVE AND DOES NOT KNOW HIS OWN LIMITS. PT HAD TO USE URINAL AND WAS ROLLING AROUND AND DID NOT LOOK LIKE HE COULD HOLD URINAL. AID TRIED TO HELP AND PT BECAME VERY UPSET AND THEN REFUSED TO TRY AND ANSWER QUESTIONS OR LET THIS ADMINISTRATION MANAGER COMPLETE ASSESSMENT PROPERLY. WAS NOT ABLE TO GET A HISTORY COMPLETED. PT WAS STATING PEOPLE WERE NOT BEING NICE AND THE TWO AIDES WERE BEING VERY KIND AND TRYING TO HELP HIM. PT REQUEST EVERONE LEAVE HIM ALONE. WILL CONTINUE TO MONITOR HE TRIED TO GET OUT OF BED MULTIPLE TIMES SETTING ALARM OFF.
--- NOTE | 2020-11-07 17:11 | NUR ---
PT CONTINUED TO BE VERY NOISY AND LOUD. PT WAS ABLE TO QUIET DOWN A BIT WITH HIS FRIENDS ARRIVAL TO ROOM. DECISION WAS MADE TO MOVE PT TO ROOM 349. REPORT WAS GIVEN PRIOR TO PT TRANSFER TO RECIEVING RN. BELONINGS TAKEN WITH PT. PT NAPPED FOR HIS TRIP OVER WAKING UP OFF AND ON. CALL LIGHT PLACED IN REACH AND BED ALARM SET.
--- NOTE | 2020-11-07 17:24 | NUR ---
SUMMARY PT TRANSFERED BACK TO ROOM 349, PT SITTING UP AT THE EDGE OF THE BED VISITING WITH HIS FRIEND, ORIENTED PT TO THE ROOM AND CALL SYSTEM, EDUCATED PT TO NOT GET UP WITHOUT ASSISTANCE AND TO CALL IF HE NEEDS HELP, PT GIVEN A WASHCLOTH AND ENCOURAGED TO CLEAN THE BLOOD OFF OF HIS FACE, PT COOPERATIVE AND PLEASANT AT THIS TIME, WILL CONT TO MONITOR
--- NOTE | 2020-11-08 04:23 | NUR ---
SUMMARY PT WAS SLEEPING AT BEGINNING OF SHIFT. PT BECAME MORE CONFUSED DURING SHIFT. PT UNABLE TO BEAR WEIGHT ON LEFT FOOT. PT BECAME MORE ANXIOUS AND AGITATED. DR INGRAM CALLED AND ORDERED ATIVAN. PT WAS ABLE TO RELAX FOR A HOUR OR SO. PT CONTINUALLY TRIED TO GET OUT OF BED. DR DELACRUZ CALLED AND ORDERED A DONIS VEST. PT TOLERATING VEST WELL BUT REMAINS CONFUSED. PT AWAKE AND IN NO DISTRESS. CALL LIGHT IN REACH AND BED ALARM ON.
[2020-11-08 05:23] LABS: Source, Urine Clean Catch
[2020-11-08 05:45] LABS: BASOPHILS ABSOLUTE AUTO 0.05 K/mm3 (0.00-0.23); BASOPHILS PERCENT AUTO 0 % (0-2); EOSINOPHILS ABSOLUTE AUTO 0.25 K/mm3 (0.00-0.68); EOSINOPHILS PERCENT AUTO 2 % (0-6); Hematocrit 44.8 % (37.0-53.0); IMMATURE GRAN ABSOLUTE AUTO 0.09 K/mm3 (0.00-0.10); IMMATURE GRAN PERCENT AUTO 1 % (0-1); LYMPHOCYTES ABSOLUTE AUTO 1.89 K/mm3 (0.84-5.20); LYMPHOCYTES PERCENT AUTO 15 % (21-46); MONOCYTES ABSOLUTE AUTO 0.58 K/mm3 (0.16-1.47); MONOCYTES PERCENT AUTO 5 % (4-13); Mean Corpuscular HGB 26.4 pg (26.0-34.0); Mean Corpuscular HGB Conc 31.3 g/dL (31.5-36.5); Mean Corpuscular Volume 85 fL (80-100); Mean Platelet Volume 9.1 fL (9.1-12.4); NEUTROPHILS ABSOLUTE AUTO 9.74 K/mm3 (1.96-9.15); NEUTROPHILS PERCENT AUTO 77 % (41-73); Platelet Count 359 K/mm3 (150-400); RDW Coefficient Variation 17.9 % (11.7-14.2); RDW Standard Deviation 52.2 fL (35.1-46.3)
[2020-11-08 05:55] LABS: Bilirubin, Urine Neg (Neg); Blood, Urine Neg (Neg); Glucose Qualitative, Urine Neg (Neg); Ketones, Urine Neg (Neg); Leukocyte Esterase, Urine Neg (Neg); Nitrite, Urine Neg (Neg); Protein, Urine 1+ (Neg); Urobilinogen, Urine NORM (Normal)
[2020-11-08 06:05] LABS: Alanine Aminotransfer (ALT/SGP 32 U/L (12-78); Albumin/Globulin Ratio 0.9 (0.8-1.8); Alk Phos 105 U/L (50-136); Anion Gap 6 mmol/L (6-16); Aspartate Aminotrans (AST/SGOT 31 U/L (12-37); Bilirubin, Total 0.7 mg/dL (0.1-1.0); Blood Urea Nitrogen 39 mg/dL (8-24); Bun/Creatinine Ratio 35.8 (12.0-20.0); CHOL/HDL RATIO 4.1; CO2, Blood 27 mmol/L (21-32); Calcium, Blood 8.6 mg/dL (8.5-10.1); Chloride, Blood 106 mmol/L (98-108); Cholesterol 114 mg/dL (50-200); Creatinine, Blood 1.09 mg/dL (0.60-1.20); Globulin, Blood 3.5 g/dL (2.2-4.0); Glomerular Filtration Rate >60 (60-); Glucose, Blood 101 mg/dL (70-99); HDL Cholesterol 28 mg/dL (>39); Low Density Lipoprotein Chol 56 mg/dL (0-110); Potassium, Blood 4.1 mmol/L (3.5-5.5); Sodium, Blood 139 mmol/L (136-145); Total Protein, Blood 6.5 g/dL (6.4-8.2); Triglycerides 150 mg/dL (30-160); Very Low Density Lipoprot Chol 30 mg/dL (6-32)
[2020-11-08 06:19] LABS: Appearance, Urine Clear (Clear); Color, Urine Yellow (P-Yellow)
--- NOTE | 2020-11-08 17:07 | NUR ---
SUMMARY PT RESTING IN BED, OCC CALLS OUT IN HIS SLEEP, PT HAS SLEPT OFF AND ON T/O THE DAY, UP IN THE RECLINER AND BACK TO THE BED FREQUENTLY, PT FALLS ASLEEP AND STARTLES HIMSELF AWAKE AND YELLS OUT, PT CAN BE GRUFF WITH STAFF, PT VERY UNSTEADY ON HIS FEET, DOES NOT USE HIS CALL LIGHT DESPITE FREQUENT REMINDERS, PT IN DONIS VEST FOR SAFETY THE PT HAS FALLEN MANY TIMES AT HOME, VSS, WILL CONT TO MONITOR
--- NOTE | 2020-11-09 01:31 | NUR ---
@0100- PT. AGITATED AND THRASHING AROUND IN BED. REMOVED DONIS VEST AND SAT UP ON THE SIDE OF THE BED NAKED, STATED WANTED TO LEAVE NOW. PT. CONFRONTATIONAL AND REFUSING TO STAY IN BED. PT. IS HIGH FALL RISK AND VERY UNSTEADY GAIT. VINYL INSTALLER RANULFO MADE AWARE AND SECURITY CALLED FOR SAFETY. PT. A&OX3 AND INSISTING ON LEAVING. NOTIFIED DR. SANTANA. DISCUSSED WITH PT. THE RISKS OF LEAVING AMA, PT. VERBALIZED UNDERSTANDING. AMA FORM SIGNED BY PT, IV REMOVED. @0126 PT. TRANSPORTED OFF UNIT VIA WC BY CLOTH EXAMINER MACHINE TO ED ENTRANCE.
== END 2020-11-09 01:26 | disposition left against medical advice (07) ==
LOC: ER 07:06 → ERHOLD 10:04 → MEDS 10:04
PROVIDERS: Emergency Medicine; Nurse Practitioner Acute Care; ADMIT Internal Medicine
DX: G92 Toxic encephalopathy (principal); S01.81XA Laceration without foreign body of other part of head, initial encounter; W18.30XA Fall on same level, unspecified, initial encounter; D72.829 Elevated white blood cell count, unspecified; I11.0 Hypertensive heart disease with heart failure; I50.22 Chronic systolic (congestive) heart failure; I25.10 Atherosclerotic heart disease of native coronary artery without angina pectoris; E03.9 Hypothyroidism, unspecified; G40.909 Epilepsy, unspecified, not intractable, without status epilepticus; J44.9 Chronic obstructive pulmonary disease, unspecified; F15.10 Other stimulant abuse, uncomplicated; I25.2 Old myocardial infarction; F17.210 Nicotine dependence, cigarettes, uncomplicated; Z91.14 Patient's other noncompliance with medication regimen; Z88.5 Allergy status to narcotic agent; Z91.030 Bee allergy status
CPT/HCPCS: 12002; 36415; 36600; 70450; 71045; 72125; 80053; 80061; 82140; 82550; 82553; 82803; 83036; 83735; 83880; 84439; 84443; 84484; 85025; 93005; 93010; 94640; 94760; 96372; 96372-59; 96374-59; 96375; 96375-59; 96376; 97110; 97162; 99285-25; A9270; G0378; G0480; J1650; J1940; J2060

== ENCOUNTER 2020-11-14 13:56 | Emergency (ER) | payer OTHER ==
[~2020-11-14] VITALS: Ht 167.6 cm; Wt 99.8 kg
[2020-11-14 15:53] LABS: BASOPHILS ABSOLUTE AUTO 0.05 K/mm3 (0.00-0.23); BASOPHILS PERCENT AUTO 1 % (0-2); EOSINOPHILS ABSOLUTE AUTO 0.32 K/mm3 (0.00-0.68); EOSINOPHILS PERCENT AUTO 3 % (0-6); Hemoglobin 15.2 g/dL (13.5-17.5); IMMATURE GRAN ABSOLUTE AUTO 0.04 K/mm3 (0.00-0.10); IMMATURE GRAN PERCENT AUTO 0 % (0-1); LYMPHOCYTES ABSOLUTE AUTO 1.67 K/mm3 (0.84-5.20); LYMPHOCYTES PERCENT AUTO 17 % (21-46); MONOCYTES ABSOLUTE AUTO 0.52 K/mm3 (0.16-1.47); MONOCYTES PERCENT AUTO 5 % (4-13); Mean Corpuscular HGB 25.9 pg (26.0-34.0); Mean Corpuscular HGB Conc 30.4 g/dL (31.5-36.5); Mean Corpuscular Volume 85 fL (80-100); NEUTROPHILS ABSOLUTE AUTO 7.16 K/mm3 (1.96-9.15); NEUTROPHILS PERCENT AUTO 73 % (41-73); Platelet Count 373 K/mm3 (150-400); RDW Coefficient Variation 17.7 % (11.7-14.2); RDW Standard Deviation 53.1 fL (35.1-46.3); Red Blood Cell Count 5.86 M/mm3 (4.30-5.90); White Blood Cell Count 9.76 K/mm3 (4.00-11.30)
[2020-11-14 16:11] LABS: Alanine Aminotransfer (ALT/SGP 26 U/L (12-78); Albumin, Blood 3.4 g/dL (3.4-5.0); Albumin/Globulin Ratio 0.9 (0.8-1.8); Alk Phos 103 U/L (50-136); Anion Gap 4 mmol/L (6-16); Aspartate Aminotrans (AST/SGOT 21 U/L (12-37); Bilirubin, Total 0.9 mg/dL (0.1-1.0); Blood Urea Nitrogen 25 mg/dL (8-24); Bun/Creatinine Ratio 22.9 (12.0-20.0); CO2, Blood 33 mmol/L (21-32); Calcium, Blood 9.1 mg/dL (8.5-10.1); Chloride, Blood 103 mmol/L (98-108); Creatinine, Blood 1.09 mg/dL (0.60-1.20); Globulin, Blood 3.9 g/dL (2.2-4.0); Glomerular Filtration Rate >60 (60-); Glucose, Blood 106 mg/dL (70-99); Potassium, Blood 4.5 mmol/L (3.5-5.5); Sodium, Blood 140 mmol/L (136-145); Total Protein, Blood 7.3 g/dL (6.4-8.2); Troponin I 0.039 ng/mL (0.000-0.040)
== END 2020-11-14 17:40 | disposition home or self-care (01) ==
LOC: ER 13:56
PROVIDERS: Emergency Medicine
DX: I11.0 Hypertensive heart disease with heart failure (principal); I50.9 Heart failure, unspecified; S70.02XA Contusion of left hip, initial encounter; E03.9 Hypothyroidism, unspecified; I25.10 Atherosclerotic heart disease of native coronary artery without angina pectoris; K21.9 Gastro-esophageal reflux disease without esophagitis; E78.5 Hyperlipidemia, unspecified; I25.2 Old myocardial infarction; F17.210 Nicotine dependence, cigarettes, uncomplicated; Z88.5 Allergy status to narcotic agent; Z91.030 Bee allergy status; Z79.899 Other long term (current) drug therapy; Z79.82 Long term (current) use of aspirin; W19.XXXA Unspecified fall, initial encounter
CPT/HCPCS: 36415; 71045; 73502; 80053; 83880; 84484; 85025; 93005; 93010; 96374; 96375; 99284-25; A9270; J1885; J1940; J2405

== ENCOUNTER 2020-11-20 11:24 | Emergency (ER) | payer OTHER ==
[~2020-11-20] VITALS: Ht 172.7 cm; Wt 104.3 kg
[2020-11-20] MEDS ORDERED: Roxicodone5 MG PO (13:22)
[2020-11-20] MEDS ORDERED: Methocarbamol500 MG PO (13:22)
== END 2020-11-20 13:40 | disposition home or self-care (01) ==
LOC: ER 11:24
DX: S20.211A Contusion of right front wall of thorax, initial encounter (principal); I10 Essential (primary) hypertension; E03.9 Hypothyroidism, unspecified; K21.9 Gastro-esophageal reflux disease without esophagitis; E78.5 Hyperlipidemia, unspecified; I25.2 Old myocardial infarction; Z88.5 Allergy status to narcotic agent; Z91.030 Bee allergy status; Z79.82 Long term (current) use of aspirin; Z79.899 Other long term (current) drug therapy; X50.1XXA Overexertion from prolonged static or awkward postures, initial encounter
CPT/HCPCS: 71045; 93005; 93010; 99284-25; A9270

== ENCOUNTER 2020-12-27 16:14 | Emergency (ER) | payer OTHER ==
[~2020-12-27] VITALS: Ht 170.2 cm; Wt 102.1 kg
[~2020-12-27 16:14] MED LIST changes: +Methocarbamol500 MG PO; +Roxicodone5 MG PO
[2020-12-27 17:09] LABS: PCO2 Arterial 46.7 mmHg (35-45); PO2 Arterial 72.9 mmHg (80-100); pH Blood Arterial 7.41 (7.35-7.45)
[2020-12-27 17:25] LABS: BASOPHILS ABSOLUTE AUTO 0.03 K/mm3 (0.00-0.23); BASOPHILS PERCENT AUTO 0 % (0-2); EOSINOPHILS ABSOLUTE AUTO 0.03 K/mm3 (0.00-0.68); EOSINOPHILS PERCENT AUTO 0 % (0-6); Hemoglobin 15.3 g/dL (13.5-17.5); IMMATURE GRAN ABSOLUTE AUTO 0.06 K/mm3 (0.00-0.10); IMMATURE GRAN PERCENT AUTO 1 % (0-1); LYMPHOCYTES ABSOLUTE AUTO 0.56 K/mm3 (0.84-5.20); LYMPHOCYTES PERCENT AUTO 4 % (21-46); MONOCYTES ABSOLUTE AUTO 0.18 K/mm3 (0.16-1.47); MONOCYTES PERCENT AUTO 1 % (4-13); Mean Corpuscular HGB 25.3 pg (26.0-34.0); Mean Corpuscular HGB Conc 30.6 g/dL (31.5-36.5); Mean Corpuscular Volume 83 fL (80-100); Mean Platelet Volume 9.1 fL (9.1-12.4); NEUTROPHILS ABSOLUTE AUTO 11.93 K/mm3 (1.96-9.15); NEUTROPHILS PERCENT AUTO 93 % (41-73); Platelet Count 308 K/mm3 (150-400); RDW Coefficient Variation 19.8 % (11.7-14.2); Red Blood Cell Count 6.05 M/mm3 (4.30-5.90); White Blood Cell Count 12.79 K/mm3 (4.00-11.30)
[2020-12-27 17:41] LABS: Alanine Aminotransfer (ALT/SGP 30 U/L (12-78); Albumin, Blood 3.3 g/dL (3.4-5.0); Albumin/Globulin Ratio 0.8 (0.8-1.8); Alk Phos 107 U/L (50-136); Anion Gap 7 mmol/L (6-16); Aspartate Aminotrans (AST/SGOT 29 U/L (12-37); Bilirubin, Total 0.9 mg/dL (0.1-1.0); Blood Urea Nitrogen 17 mg/dL (8-24); Bun/Creatinine Ratio 19.5 (12.0-20.0); CO2, Blood 26 mmol/L (21-32); Calcium, Blood 8.8 mg/dL (8.5-10.1); Chloride, Blood 106 mmol/L (98-108); Creatinine, Blood 0.87 mg/dL (0.60-1.20); Globulin, Blood 3.9 g/dL (2.2-4.0); Glomerular Filtration Rate >60 (60-); Glucose, Blood 145 mg/dL (70-99); Potassium, Blood 3.9 mmol/L (3.5-5.5); Sodium, Blood 139 mmol/L (136-145); Total Protein, Blood 7.2 g/dL (6.4-8.2); Troponin I 0.031 ng/mL (0.000-0.040)
[2020-12-27 17:56] LABS: Ethanol (Alcohol), Blood, Med <3 mg/dL; Free Thyroxine 0.67 ng/dL (0.70-1.60)
[2020-12-27] MEDS ORDERED: CARV3.125 PO (18:20)
[2020-12-27] MEDS ORDERED: PRED20 PO (18:20)
[2020-12-27] MEDS ORDERED: MAGNESIUM OXID500 MG PO (18:21)
[2020-12-27] MEDS ORDERED: LOSA25 PO (18:21)
[2020-12-27] MEDS ORDERED: ATOR40TA PO (18:22)
[2020-12-27 18:53] LABS: U Amphetamine Screen Not Detected; U Barbituate Screen Not Detected; U Benzodiazapine Screen Not Detected; U Buprenorphine Screen Not Detected; U Cannabinoids Screen Not Detected; U Cocaine Screen Not Detected; U Methadone Screen Not Detected; U Methamphetamine Screen Not Detected; U Opiates Screen Not Detected; U Oxycodone Screen Not Detected; U Phencyclidine Screen Not Detected; U Propoxyphene Screen Not Detected
== END 2020-12-27 19:32 | disposition home or self-care (01) ==
LOC: ER 16:14
PROVIDERS: Emergency Medicine; Physician Assistant
DX: S00.81XA Abrasion of other part of head, initial encounter (principal); S80.01XA Contusion of right knee, initial encounter; R55 Syncope and collapse; E03.9 Hypothyroidism, unspecified; I11.0 Hypertensive heart disease with heart failure; I50.9 Heart failure, unspecified; I25.10 Atherosclerotic heart disease of native coronary artery without angina pectoris; Z79.82 Long term (current) use of aspirin; Z79.899 Other long term (current) drug therapy; Z91.030 Bee allergy status; Z88.5 Allergy status to narcotic agent; W01.10XA Fall on same level from slipping, tripping and stumbling with subsequent striking against unspecified object, initial encounter
CPT/HCPCS: 36415; 36600; 70450; 70486; 71046; 73562-RT; 80053; 82803; 83880; 84439; 84443; 84484; 85025; 93005; 93010; 99285-25; G0480

== ENCOUNTER 2021-08-01 23:49 | Inpatient (IN) | payer OTHER ==
[~2021-08-01] VITALS: Ht 165.1 cm; Wt 108.3 kg
[~2021-08-01 23:49] MED LIST changes: +LOSA25 PO; +MAGNESIUM OXID500 MG PO; +PRED20 PO
[2021-08-02 00:08] LABS: BASOPHILS ABSOLUTE AUTO 0.02 K/mm3 (0.00-0.23); BASOPHILS PERCENT AUTO 0 % (0-2); EOSINOPHILS ABSOLUTE AUTO 0.36 K/mm3 (0.00-0.68); EOSINOPHILS PERCENT AUTO 6 % (0-6); Hematocrit 44.3 % (37.0-53.0); Hemoglobin 14.2 g/dL (13.5-17.5); IMMATURE GRAN ABSOLUTE AUTO 0.06 K/mm3 (0.00-0.10); IMMATURE GRAN PERCENT AUTO 1 % (0-1); LYMPHOCYTES ABSOLUTE AUTO 0.91 K/mm3 (0.84-5.20); LYMPHOCYTES PERCENT AUTO 14 % (21-46); MONOCYTES ABSOLUTE AUTO 0.03 K/mm3 (0.16-1.47); MONOCYTES PERCENT AUTO 1 % (4-13); Mean Corpuscular HGB 29.1 pg (26.0-34.0); Mean Corpuscular HGB Conc 32.1 g/dL (31.5-36.5); Mean Corpuscular Volume 91 fL (80-100); Mean Platelet Volume 9.5 fL (9.1-12.4); NEUTROPHILS PERCENT AUTO 79 % (41-73); Platelet Count 290 K/mm3 (150-400); Red Blood Cell Count 4.88 M/mm3 (4.30-5.90); White Blood Cell Count 6.58 K/mm3 (4.00-11.30)
[2021-08-02 00:29] LABS: Alanine Aminotransfer (ALT/SGP 206 U/L (12-78); Albumin, Blood 3.3 g/dL (3.4-5.0); Albumin/Globulin Ratio 0.8 (0.8-1.8); Alk Phos 333 U/L (50-136); Anion Gap 6 mmol/L (6-16); Aspartate Aminotrans (AST/SGOT 296 U/L (12-37); Bilirubin, Total 1.1 mg/dL (0.1-1.0); Blood Urea Nitrogen 20 mg/dL (8-24); Bun/Creatinine Ratio 19.2 (12.0-20.0); CO2, Blood 29 mmol/L (21-32); Calcium, Blood 8.8 mg/dL (8.5-10.1); Chloride, Blood 105 mmol/L (98-108); Creatinine, Blood 1.04 mg/dL (0.60-1.20); Globulin, Blood 4.1 g/dL (2.2-4.0); Glomerular Filtration Rate >60 (60-); Glucose, Blood 113 mg/dL (70-99); Potassium, Blood 4.1 mmol/L (3.5-5.5); Sodium, Blood 140 mmol/L (136-145); Total Protein, Blood 7.4 g/dL (6.4-8.2); Troponin I <0.015 ng/mL (0.000-0.040)
--- NOTE | 2021-08-02 06:20 | NUR ---
A/OX4. PT IS CURRENTLY ON 4L OF O2; HIS BASLINE AT HOME IS 2L. A MRI CHECKLIST WAS COMPLETE FOR TODAY. HE DOES HAVE A HX OF GLF SO THE BED ALARM IS ON. HE IS STEADY ON HIS FEET AND USES A FWW AT BL. HIS HX INCLUDES: BILIARY STENT (DISPLACED), HTN, PTSD, METH USE, HEP C, SEIZURES, CHF.
--- NOTE | 2021-08-02 06:25 | NUR ---
ADMISSION: PT ARRIVED TO [facility] VIA EMS. HE HAD C/O OF SOB/DYSPNEA. UP TO THE FLOOR HE WAS ABLE TO TRANSFER FROM [facility] TO BED. HE IS A VERY PLEASANT MAN. THE PT IS ON 4L OF O2; HE CAN USE THE URINAL BEDSIDE, BUT D/T A HX OF FALLING WE ARE LEAVING THE BED ALARM ON. HE ALSO USES A FWW AT BL. VSS EXCEPT FOR HIM BEING TACHY IN THE ED. HE HAS ELEVATED ENZYMES: AST 296, ALT 206. HIS CALL LIGHT IS WITHIN REACH.
[2021-08-02 08:16] LABS: Alanine Aminotransfer (ALT/SGP 381 U/L (12-78); Albumin, Blood 3.4 g/dL (3.4-5.0); Alk Phos 391 U/L (50-136); Anion Gap 10 mmol/L (6-16); Aspartate Aminotrans (AST/SGOT 412 U/L (12-37); Bilirubin, Total 1.8 mg/dL (0.1-1.0); Blood Urea Nitrogen 20 mg/dL (8-24); Bun/Creatinine Ratio 18.9 (12.0-20.0); CO2, Blood 25 mmol/L (21-32); Calcium, Blood 8.6 mg/dL (8.5-10.1); Chloride, Blood 102 mmol/L (98-108); Creatinine, Blood 1.06 mg/dL (0.60-1.20); Globulin, Blood 3.4 g/dL (2.2-4.0); Glomerular Filtration Rate >60 (60-); Glucose, Blood 257 mg/dL (70-99); Potassium, Blood 4.5 mmol/L (3.5-5.5); Sodium, Blood 137 mmol/L (136-145); Total Protein, Blood 6.8 g/dL (6.4-8.2)
--- NOTE | 2021-08-02 18:46 | NUR ---
PT AAOX 4, ABLE TO MAKE NEEDS KNOWN. COMPLIANT WITH MEDICATION REGIMEN. MRI WAS NOT DONE TODAY UNTIL FURTHER NOTICE. MEDICATED FOR PAIN X 2 ON THIS SHIFT. PHYSICIAN IS AWARE. CONTINUES ON IV ABT, NO ADVERSE REACTION NOTED. O2 CONTINUES, NO DISTRESS NOTED. NO CPMPLAINTS VOICED. BED IN LOWEST POSITION. CALL LIGHT IN REACH.
--- NOTE | 2021-08-03 05:28 | NUR ---
PATIENT WAS ALERT AND ORIENTED X3, STABLE VITAL SIGNS, NO ACUTE CHANGES, VOIDED TWICES DURING THE NIGTH. PATIENT COMPLAINED ABOUT PAIN AND WAS TREATED FOR IT. CALL LIGHT WITH IN REACH, BED TO THE LOWEST POSITION. WILL CONTINUE TO MONITOR UNTIL HAND OFF.
[2021-08-03 10:49] LABS: International Normalized Ratio 1.01; Prothrombin Time Results 10.6 Sec (9.7-11.5)
[2021-08-03 12:00] LABS: Influenza A, PCR NEGATIVE (NEGATIVE); Influenza B, PCR NEGATIVE (NEGATIVE); Resp Syncytial Virus, PCR NEGATIVE (NEGATIVE); SARS-Cov-2 (COVID-19) PCR, MMC NEGATIVE (NEGATIVE)
--- NOTE | 2021-08-03 13:22 | NUR ---
RETURN FROM BOX STORAGE WORKER 1245: TR BAND 20MLS, NO HEMATOMA, SENSATION PRESENT, PULSES PRESENT, DENIES CHEST PAIN, 1 STEND MID LAD.
--- NOTE | 2021-08-03 13:24 | NUR ---
ASSUMED CARE OF PATIENT ACADEMIC SERVICES COORDINATOR FROM UPSTAIRS 1045: AOX4, COMPLAINS OF CHEST PAIN, ANIMATED PERSONALITY, APPEARS IN GOOD MOOD, LUNGS CLEAR/DIM, BP HTN 170S, ABDOMEN OBESE ROUNDED AND FIRM NORMAL PER PATIENT, VOIDS URINAL, PATIENT PREPED FOR YOKER MACHINE OPERATOR PCI NTERVENTION, HEPARIN GTT STARTED AT 13UNITS/HR,
--- NOTE | 2021-08-03 17:55 | NUR ---
AOX4, DENIES CHEST PAIN, HEPARIN DC ORDER, STENT TO MID LAD, R RADIAL ACCESS DIFFICULT TO WITHDRAW AIR, OOZING AT RADIAL SITE, TR BAND STILL PLACED, STAT PT ORDER, COMPLAINS OF SOB AT TIMES, ON 3L NC, LUNGS CLEAR/DIM, BREATHING TREATMENTS X2, +2 PULSES, HTN DIFFICULT TO CONTROL, COREG/LOSARTEN GIVEN EARLY, HYDRALAZINE 10MG X2 GIVEN FOR 150 SBP PARAMETERS, ABDOMEN DISTENDED/FIRM BASELINE PER PATIENT, VOIDS URINAL YU OUTPUT, TOLERATING RETURN TO CLEAR LIQUID DIET.
[2021-08-03 18:46] LABS: International Normalized Ratio 0.98; Prothrombin Time Results 10.3 Sec (9.7-11.5)
--- NOTE | 2021-08-03 19:59 | NUR ---
ASSUMED CARE OF PT AT 1915. REPORT RECEIVED AT BEDSIDE. PT PRESENTS IN BED. ALERT AND ORIENTED. PLEASANT AND COOPERATIVE WITH CARE AND ASSESSMENT. NO COMPLAINTS OF CHEST PAIN OR PRESSURE. RIGHT RADIAL ACCESS SITE CHECKED AND VERIFIED WITH OFFGOING RN. MILD OOZE NOTED FROM UNDER TR BAND. WILL REVIEW CHART AND PLAN OF CARE FOR THIS PT.
[2021-08-03] MEDS ORDERED: Ventolin5 MG/1 ML INH (20:21)
--- NOTE | 2021-08-03 23:40 | NUR ---
HAVE BEEN ABLE TO DEFLATE TR BAND. WILL REMOVE COMPLETELY AT MIDNIGHT AND PLACE DRESSING. NO HEMATOMA OR OOZING TO NOTE. PT HAS NO COMPLAINTS OF CHEST PAIN OR PRESSURE. NO NAUSEA. WILL CONTINUE TO MONITOR PT.
[2021-08-04 03:57] LABS: BASOPHILS ABSOLUTE AUTO 0.01 K/mm3 (0.00-0.23); BASOPHILS PERCENT AUTO 0 % (0-2); EOSINOPHILS PERCENT AUTO 0 % (0-6); Hematocrit 43.3 % (37.0-53.0); IMMATURE GRAN ABSOLUTE AUTO 0.12 K/mm3 (0.00-0.10); IMMATURE GRAN PERCENT AUTO 1 % (0-1); LYMPHOCYTES ABSOLUTE AUTO 0.95 K/mm3 (0.84-5.20); LYMPHOCYTES PERCENT AUTO 5 % (21-46); MONOCYTES ABSOLUTE AUTO 0.95 K/mm3 (0.16-1.47); MONOCYTES PERCENT AUTO 5 % (4-13); Mean Corpuscular HGB 28.8 pg (26.0-34.0); Mean Corpuscular HGB Conc 32.3 g/dL (31.5-36.5); Mean Corpuscular Volume 89 fL (80-100); Mean Platelet Volume 9.5 fL (9.1-12.4); NEUTROPHILS ABSOLUTE AUTO 17.58 K/mm3 (1.96-9.15); NEUTROPHILS PERCENT AUTO 90 % (41-73); Platelet Count 314 K/mm3 (150-400); RDW Coefficient Variation 14.3 % (11.7-14.2); RDW Standard Deviation 46.1 fL (35.1-46.3); Red Blood Cell Count 4.86 M/mm3 (4.30-5.90); White Blood Cell Count 19.61 K/mm3 (4.00-11.30)
[2021-08-04 04:16] LABS: Alanine Aminotransfer (ALT/SGP 223 U/L (12-78); Albumin, Blood 3.2 g/dL (3.4-5.0); Albumin/Globulin Ratio 0.8 (0.8-1.8); Alk Phos 291 U/L (50-136); Anion Gap 6 mmol/L (6-16); Aspartate Aminotrans (AST/SGOT 62 U/L (12-37); Bilirubin, Total 0.5 mg/dL (0.1-1.0); Blood Urea Nitrogen 21 mg/dL (8-24); Bun/Creatinine Ratio 24.4 (12.0-20.0); CO2, Blood 31 mmol/L (21-32); Calcium, Blood 8.9 mg/dL (8.5-10.1); Chloride, Blood 101 mmol/L (98-108); Creatinine, Blood 0.86 mg/dL (0.60-1.20); Globulin, Blood 4.1 g/dL (2.2-4.0); Glomerular Filtration Rate >60 (60-); Glucose, Blood 113 mg/dL (70-99); Potassium, Blood 3.4 mmol/L (3.5-5.5); Sodium, Blood 138 mmol/L (136-145); Total Protein, Blood 7.3 g/dL (6.4-8.2)
--- NOTE | 2021-08-04 06:15 | NUR ---
PT HAS BEEN ABLE TO REST IN BED. NO COMPLAINTS OF CHEST PAIN OR PRESSURE. RIGHT RADIAL ACCESS SITE WITHOUT HEMATOMA OR OOZING. WILL CONTINUE TO MONITOR PT, AND WILL REPORT OFF TO ONCOMING RN.
--- NOTE | 2021-08-04 08:58 | NUR ---
ASSUMED CARE OF PATIENT: AOX4, DENIES PAIN, R RADIAL SITE SMALL AMOUNT DRIED OOZING OTHERWISE CDI TEGEDERM, VSS, MEDS PASSED, WILL CONTINUE TO MONITOR.
--- NOTE | 2021-08-04 19:25 | NUR ---
AOX4, COMPLAINS OF EPIGASTRIC PAIN 02/16, 1MG DILAUDID GIVEN W/ RESOLUTION, PT COOPERATIVE MOST OF SHIFT, MORNING WAS AGITATED REGARDING RESTRICTED DIET, BP HTN, GIVEN 10MG HYDRALAZINE W/ RETURN BP <150, NSR 80S, +2 PULSES, NO EDEMA, AWAITING MRCP, MRI PAPERWORK FAXED, [facility] PREVIOUS BILIARY STENT, UNABLE TO REACH [facility] MEDICAL RECORDS ATTEMPT X5, LUNGS CLEAR/DIM, ON 3LNC, SATS WNL, COMPLAINED OF SOB/ANXIETY, BREATHING TREATMENT GIVEN W/RESOLUTION IN SYMPTOMS, AUDIBLE BOWELS NON-TENDER, UOP ADEQUATE URINAL.
[2021-08-05 03:54] LABS: BASOPHILS ABSOLUTE AUTO 0.03 K/mm3 (0.00-0.23); BASOPHILS PERCENT AUTO 0 % (0-2); EOSINOPHILS ABSOLUTE AUTO 0.01 K/mm3 (0.00-0.68); EOSINOPHILS PERCENT AUTO 0 % (0-6); Hematocrit 44.2 % (37.0-53.0); Hemoglobin 14.5 g/dL (13.5-17.5); IMMATURE GRAN ABSOLUTE AUTO 0.18 K/mm3 (0.00-0.10); IMMATURE GRAN PERCENT AUTO 1 % (0-1); LYMPHOCYTES ABSOLUTE AUTO 1.67 K/mm3 (0.84-5.20); LYMPHOCYTES PERCENT AUTO 11 % (21-46); MONOCYTES ABSOLUTE AUTO 0.79 K/mm3 (0.16-1.47); MONOCYTES PERCENT AUTO 5 % (4-13); Mean Corpuscular HGB 28.7 pg (26.0-34.0); Mean Corpuscular HGB Conc 32.8 g/dL (31.5-36.5); Mean Corpuscular Volume 88 fL (80-100); Mean Platelet Volume 9.3 fL (9.1-12.4); NEUTROPHILS ABSOLUTE AUTO 13.26 K/mm3 (1.96-9.15); NEUTROPHILS PERCENT AUTO 83 % (41-73); Platelet Count 325 K/mm3 (150-400); RDW Coefficient Variation 14.3 % (11.7-14.2); RDW Standard Deviation 46.2 fL (35.1-46.3); Red Blood Cell Count 5.05 M/mm3 (4.30-5.90); White Blood Cell Count 15.94 K/mm3 (4.00-11.30)
[2021-08-05 04:16] LABS: Alanine Aminotransfer (ALT/SGP 155 U/L (12-78); Albumin, Blood 3.1 g/dL (3.4-5.0); Albumin/Globulin Ratio 0.8 (0.8-1.8); Alk Phos 243 U/L (50-136); Anion Gap 8 mmol/L (6-16); Aspartate Aminotrans (AST/SGOT 25 U/L (12-37); Bilirubin, Total 0.6 mg/dL (0.1-1.0); Blood Urea Nitrogen 25 mg/dL (8-24); Bun/Creatinine Ratio 29.3 (12.0-20.0); CO2, Blood 28 mmol/L (21-32); Calcium, Blood 8.4 mg/dL (8.5-10.1); Chloride, Blood 102 mmol/L (98-108); Creatinine, Blood 0.85 mg/dL (0.60-1.20); Globulin, Blood 3.8 g/dL (2.2-4.0); Glomerular Filtration Rate >60 (60-); Glucose, Blood 109 mg/dL (70-99); Potassium, Blood 3.4 mmol/L (3.5-5.5); Sodium, Blood 138 mmol/L (136-145); Total Protein, Blood 6.9 g/dL (6.4-8.2)
--- NOTE | 2021-08-05 04:45 | NUR ---
SHIFT SUMMARY: PT ALERT AND ORIENTED, IN GOOD HUMOR, HAD FAIR SHIFT,HAD SOME DIFFICULTY SLEEPING DUE TO HEADACHE RELATED TO HTN, GIVEN PRN HYDRALAZINE WITH GOOD EFFECT AND PO PAIN MEDS, SEE MAR. VS OTHERWISE STABLE. SR ON TELE, NO C/O PAIN OTHER THAN HEADACHE. TOLERATING CLEAR LIQUIDS WITHOUT ANY NAUSEA AND/OR VOMITING, UOP EXCELLENT, > 1000L OUT THUS FAR. BED LOCKED AND LOW, CALL NIELSEN IN REACH, AM K+ 34. NOTIFIED. TERESSA SANCHEZ
--- NOTE | 2021-08-05 12:17 | NUR ---
Echocardiogram completed.
--- NOTE | 2021-08-05 17:39 | NUR ---
SHIFT SUMMARY; ASSUMED CARE AT 0700. A/A/OX4 DURING SHIFT, MRI COMPLETE TODAY, REPOSITIONS SELF IN BED NEEDED, VSS, MEDICATED FOR PAIN PER EMAR, CLEAR LIQUID DIET, TOLERATING WELL. USES URINAL AT BEDSIDE, PENDING TRANSFER TO [facility], NO BEDS AVAILABLE AT THIS TIME, THEY WILL REEVALUATE TOMORROW, WILL CONTINUE TO MONITOR AND TREAT UNTIL CHANGE OF SHIFT.
--- NOTE | 2021-08-05 21:22 | NUR ---
ASSUMED CARE OF PT AT 2014, REPORT RECEIVED FROM JAE GANNON. PT RESTING COMFORTABLY IN BED AFTER RECENTLY RECIEVING DILAUDID FOR ABDOMEN PAIN. PT ALERT AND ORIENTED, FOLLOWS DIRECTIONS. HR 60'S, SBP 90'S, SPO2 >90% ON 2L NC. LUNGS CLEAR WITH DIMINISHED BASES. ABD FIRM TO PALPATE, ACTIVE BOWEL TONES. PT DENIES NEEDS AT THIS TIME, CALL LIGHT WITHIN REACH.
[2021-08-06 03:53] LABS: BASOPHILS ABSOLUTE AUTO 0.03 K/mm3 (0.00-0.23); BASOPHILS PERCENT AUTO 0 % (0-2); EOSINOPHILS ABSOLUTE AUTO 0.65 K/mm3 (0.00-0.68); EOSINOPHILS PERCENT AUTO 7 % (0-6); Hematocrit 42.7 % (37.0-53.0); Hemoglobin 13.9 g/dL (13.5-17.5); IMMATURE GRAN ABSOLUTE AUTO 0.21 K/mm3 (0.00-0.10); IMMATURE GRAN PERCENT AUTO 2 % (0-1); LYMPHOCYTES ABSOLUTE AUTO 1.41 K/mm3 (0.84-5.20); LYMPHOCYTES PERCENT AUTO 16 % (21-46); MONOCYTES ABSOLUTE AUTO 0.56 K/mm3 (0.16-1.47); MONOCYTES PERCENT AUTO 6 % (4-13); Mean Corpuscular HGB Conc 32.6 g/dL (31.5-36.5); Mean Corpuscular Volume 89 fL (80-100); Mean Platelet Volume 9.1 fL (9.1-12.4); NEUTROPHILS ABSOLUTE AUTO 6.02 K/mm3 (1.96-9.15); NEUTROPHILS PERCENT AUTO 68 % (41-73); Platelet Count 265 K/mm3 (150-400); RDW Coefficient Variation 14.4 % (11.7-14.2); RDW Standard Deviation 46.4 fL (35.1-46.3); White Blood Cell Count 8.88 K/mm3 (4.00-11.30)
[2021-08-06 04:18] LABS: Albumin, Blood 2.8 g/dL (3.4-5.0); Albumin/Globulin Ratio 0.8 (0.8-1.8); Bilirubin, Direct 0.8 mg/dL (0.0-0.3); Bilirubin, Indirect 0.3 mg/dL (0.1-0.7); Bilirubin, Total 1.1 mg/dL (0.1-1.0); Globulin, Blood 3.5 g/dL (2.2-4.0); Total Protein, Blood 6.3 g/dL (6.4-8.2)
--- NOTE | 2021-08-06 05:52 | NUR ---
SHIFT SUMMARY PT COMPLAINING OF 10/10 ADBOMEN PAIN, PRN DILAUDID GIVEN X3 THIS SHIFT. PT REMAINED ALERT AND ORIENTED T/O SHIFT. FOLLOWS DIRECTIONS, ABLE TO MOVE SELF AROUND IN BED WITHOUT DIFFICULTY. HR 50-60'S, SBP 90-100'S, SPO2 >90% ON 2L NC. PT DENIED CHEST PAIN AND BEING SOB DURING SHIFT. LUNGS CLEAR WITH DIM BASES. USES URINAL AT BEDSIDE. CALL LIGHT WITHIN REACH, ABLE TO MAKE NEEDS KNOWN.
--- NOTE | 2021-08-06 07:57 | NUR ---
AM NOTE... ASSUMED CARE OF PT AT 0700. THE PT IS A&Ox4. THE PT IS IN SR IN THE 80'S, BP IS STABLE WITH SBP AT 104. THE PT DENIES ANY CHEST PAIN/PRESSURE N/V OR SOB AT THIS TIME. THE PT HAS A RIGHT RADIAL SITE THAT IS C/D/I, THE DRESSING WAS CHAGNED TO A BANDAID THIS AM PER THE PT'S REQUEST. THE PT HAS TRACE EDEMA TO HIS BLE. THE PT IS ON 2L NC WITH O2 SATS >95% L/S CLEAR W/EXP WHEEZES NOTED IN THE UPPER/MID LOBES AND DIM IN THE LOWER LOBES. BT PRESENT AND HYPOACTIVE, ABD HAS MODERATE DISTENTION, IS FIRM BUT NONTENDER TO PALP A THIS TIME. THE PT HAS NOT HAD A BM SINCE 08/01. HE IS ON A CLEAR LIQUID DIET AND TOLERATING THIS WELL. PLAN IS TO TRANSFER THIS PT UP TO [facility] FOR AN ERCP. WILL CONTINUE TO MONITOR.
--- NOTE | 2021-08-06 09:25 | NUR ---
PT UPDATE.... THIS RN WENT INTO THE ROOM TO RE-ASSESS THE PT'S PAIN, THE PT WAS SITTING UP IN THE BED C/O OF HIS BACK ITCHING, THIS RN SPOKE TO THE PROVIDER AND NEW ORDERS OBTAINED FOR BENADRYL. ONCE THIS ORDER WAS PUT THROUGH PHARMACY THIS RN PULLED THE MEDICATION AND WENT BACK INTO THE ROOM, APROX 10 MINS SINCE THE PT FIRST STARTED TO C/O OF THE ITCHING. AT THIS TIME THE PT'S WHOLE BACK, SHOULDERS AND CHEST WERE BRIGHT HOPPER RED AND THE PT WAS C/O INCREASED ITCHING STATING "I FEEL LIKE I HAVE POISON OAK." THE PROVIDER WAS CALLED AGAIN AND UPDATED ON THIS CHANGE, NO NEW ORDERS OBTAINED. WILL CONTINUE TO MONITOR.
--- NOTE | 2021-08-06 18:34 | NUR ---
SHIFT SUMMARY... AT 1425 2000MG IV ROCEPHIN PIGGY BACK WAS STARTED PER ORDERS, AT APROX 1500 THIS RN HAD GONE IN TO CHECK ON THE PT D/T HEARING A LOUD MOANING SOUNDS, THE PT'S FACE, CHEST, ARMS AND BACK WERE BRIGHT RED, THE PT WAS VERY AGITATED AND SCRATCHING HIMSELF ALL OVER STATING "IT ITCHES SO BAD I FEEL LIKE I AM ON FIRE!" SMALL RED BUMPS WERE NOTED TO BE ON THE PT'S BACK, SHOULDERS AND CHEST. THE PT WAS GIVEN 50MG IV BENADRYL, THIS EVENT WAS MUCH WORSE THAN THE EVENT THAT HAPPENEN EARLIER THIS AM. THE PROVIDER WAS CALLED AND NEW ORDERS WERE OBTAINED FOR 60MG IV SOLUMEDROL x 3 DOSES Q8 HRS. THIS WAS GIVEN AT 1526. THE PT WAS ALSO GIVEN COLD WASH CLOTHS TO HELP WITH THE BURNING/ITCHING. THE PT HAS DENIED ANY CHEST PAIN THIS SHIFT, HE HAS BEEN MEDICATED FOR RUQ PAIN PER EMAR. THE PT HAS BEEN ON A CLEAR LIQUID DIET T/O THIS SHIFT AND HAS EATEN 100% OF ALL HIS MEALS. THE PT HAS NOT HAD A BM SINCE 08/01. THE PT HAS BEEN ABLE TO STAND AT THE BEDSIDE TO USE THE URINAL. THE PT'S VS HAVE BEEN STABLE T/O THIS SHIFT, THE PT'S BP DOES DECREASE WITH PAIN MEDICATIONS ADMINISTRATION BUT IMPROVES WELL, THE PT HAS NOT BEEN SYMPTOMATIC WITH THESE SOFTER PRESSURES. BT PRESENT AND HYPOACTIVE, ABD CONTINUES TO BE FIRM AND NONTENDER WITH PALPATION. PLAN OF CARE IS TO TRANSFER THE PT TO [facility]. WAITING ON A BED. CALL LIGHT IN REACH WILL CONTINUE TO MONITOR UNTIL REPORT IS GIVEN TO ONCOMING RN/TRANSFER RN.
--- NOTE | 2021-08-06 20:36 | NUR ---
PT TRANSFERED TO [facility] VIA [facility]. VSS PRIOR TO TRANSPORT. PRN DILAUDID GIVEN FOR RUQ PAIN. PT REMAINS ON 2L NC. ALL BELONGINGS TRANSFERED WITH PATIENT.
== END 2021-08-06 20:30 | disposition short-term general hospital (02) | DRG 247 ==
LOC: ER 23:49 → ICUE 08-02 02:08 → SURS 08-02 02:08 → MEDS 08-02 04:00 → ICUE 08-03 10:24
PROVIDERS: Family Medicine; Internal Medicine; Internal Medicine Cardiovascular Disease; Student in an Organized Health Care Education/Training Program; ADMIT Internal Medicine
PROC: 3E02340 Introduction of Influenza Vaccine into Muscle, Percutaneous Approach (ICD-10-PCS; 2021-08-02)
PROC: 027034Z Dilation of Coronary Artery, One Artery with Drug-eluting Intraluminal Device, Percutaneous Approach (ICD-10-PCS; principal; 2021-08-03)
PROC: 4A023N7 Measurement of Cardiac Sampling and Pressure, Left Heart, Percutaneous Approach (ICD-10-PCS; 2021-08-03)
PROC: B2111ZZ Fluoroscopy of Multiple Coronary Arteries using Low Osmolar Contrast (ICD-10-PCS; 2021-08-03)
DX: I25.110 Atherosclerotic heart disease of native coronary artery with unstable angina pectoris (principal); J44.1 Chronic obstructive pulmonary disease with (acute) exacerbation; I50.22 Chronic systolic (congestive) heart failure; T85.520A Displacement of bile duct prosthesis, initial encounter; K80.51 Calculus of bile duct without cholangitis or cholecystitis with obstruction; J96.11 Chronic respiratory failure with hypoxia; Z20.822 Contact with and (suspected) exposure to COVID-19; I95.9 Hypotension, unspecified; Z23 Encounter for immunization; I11.0 Hypertensive heart disease with heart failure; F32.A Depression, unspecified; K21.9 Gastro-esophageal reflux disease without esophagitis; E78.5 Hyperlipidemia, unspecified; G40.909 Epilepsy, unspecified, not intractable, without status epilepticus; E03.9 Hypothyroidism, unspecified; Z68.38 Body mass index [BMI] 38.0-38.9, adult; M54.9 Dorsalgia, unspecified; G89.29 Other chronic pain; F03.90 Unspecified dementia, unspecified severity, without behavioral disturbance, psychotic disturbance, mood disturbance, and anxiety; E66.01 Morbid (severe) obesity due to excess calories; M25.512 Pain in left shoulder; M25.511 Pain in right shoulder; F43.10 Post-traumatic stress disorder, unspecified; I25.2 Old myocardial infarction; Z88.5 Allergy status to narcotic agent; Z91.030 Bee allergy status; Z99.81 Dependence on supplemental oxygen; Z79.82 Long term (current) use of aspirin; Z79.899 Other long term (current) drug therapy; Z90.49 Acquired absence of other specified parts of digestive tract; Z95.5 Presence of coronary angioplasty implant and graft; Z98.890 Other specified postprocedural states; Z79.52 Long term (current) use of systemic steroids; Y82.8 Other medical devices associated with adverse incidents
CPT/HCPCS: 0241U; 36415; 71275; 74174; 74181; 80053; 80076; 83690; 83880; 84484; 85025; 85347; 85610; 85730; 90686; 93005; 93010; 93306; 93454; 93571; 94640; 94760; 96374; 96375; 97110; 97161; 99152; 99153; 99285-25; A9270; C1769; C1874; C1887; C1894; C9600; G0008; J0360; J0456; J0696; J1170; J1200; J1642; J1644; J1650; J2060; J2250; J2270; J2405; J2765; J2930; J3010; J3246; J7030; J7040; J7050; Q9967

== ENCOUNTER 2021-09-01 18:18 | Emergency (ER) | payer OTHER ==
[~2021-09-01] VITALS: Ht 167.6 cm; Wt 127.0 kg
[~2021-09-01 18:18] MED LIST changes: +Ventolin5 MG/1 ML INH
[2021-09-01 19:19] LABS: BASOPHILS ABSOLUTE AUTO 0.08 K/mm3 (0.00-0.23); BASOPHILS PERCENT AUTO 1 % (0-2); EOSINOPHILS ABSOLUTE AUTO 1.39 K/mm3 (0.00-0.68); EOSINOPHILS PERCENT AUTO 12 % (0-6); Hematocrit 38.1 % (37.0-53.0); Hemoglobin 12.3 g/dL (13.5-17.5); IMMATURE GRAN ABSOLUTE AUTO 0.08 K/mm3 (0.00-0.10); IMMATURE GRAN PERCENT AUTO 1 % (0-1); LYMPHOCYTES ABSOLUTE AUTO 1.55 K/mm3 (0.84-5.20); LYMPHOCYTES PERCENT AUTO 13 % (21-46); MONOCYTES ABSOLUTE AUTO 0.74 K/mm3 (0.16-1.47); MONOCYTES PERCENT AUTO 6 % (4-13); Mean Corpuscular HGB 28.6 pg (26.0-34.0); Mean Corpuscular HGB Conc 32.3 g/dL (31.5-36.5); Mean Corpuscular Volume 89 fL (80-100); Mean Platelet Volume 9.7 fL (9.1-12.4); NEUTROPHILS ABSOLUTE AUTO 7.69 K/mm3 (1.96-9.15); NEUTROPHILS PERCENT AUTO 67 % (41-73); Platelet Count 327 K/mm3 (150-400); RDW Coefficient Variation 14.6 % (11.7-14.2); White Blood Cell Count 11.53 K/mm3 (4.00-11.30)
[2021-09-01 19:44] LABS: Alanine Aminotransfer (ALT/SGP 26 U/L (12-78); Albumin, Blood 3.3 g/dL (3.4-5.0); Albumin/Globulin Ratio 0.8 (0.8-1.8); Alk Phos 129 U/L (50-136); Anion Gap 5 mmol/L (6-16); Aspartate Aminotrans (AST/SGOT 26 U/L (12-37); Bilirubin, Direct <0.1 mg/dL (0.0-0.3); Bilirubin, Indirect Unable to Calculate mg/dL (0.1-0.7); Bilirubin, Total 0.3 mg/dL (0.1-1.0); Blood Urea Nitrogen 14 mg/dL (8-24); Bun/Creatinine Ratio 17.1 (12.0-20.0); CO2, Blood 29 mmol/L (21-32); Calcium, Blood 8.5 mg/dL (8.5-10.1); Chloride, Blood 107 mmol/L (98-108); Creatinine, Blood 0.82 mg/dL (0.60-1.20); Globulin, Blood 3.9 g/dL (2.2-4.0); Glomerular Filtration Rate >60 (60-); Glucose, Blood 120 mg/dL (70-99); Potassium, Blood 4.3 mmol/L (3.5-5.5); Sodium, Blood 141 mmol/L (136-145); Total Protein, Blood 7.2 g/dL (6.4-8.2); Troponin I <0.015 ng/mL (0.000-0.040)
[2021-09-01 20:05] LABS: Influenza A, PCR NEGATIVE (NEGATIVE); Influenza B, PCR NEGATIVE (NEGATIVE); Resp Syncytial Virus, PCR NEGATIVE (NEGATIVE); SARS-Cov-2 (COVID-19) PCR, MMC NEGATIVE (NEGATIVE)
[2021-09-01] MEDS ORDERED: Prednisone20 MG PO (23:14)
== END 2021-09-02 00:04 | disposition left against medical advice (07) ==
LOC: ER 18:18
PROVIDERS: Student in an Organized Health Care Education/Training Program
DX: K86.9 Disease of pancreas, unspecified (principal); J44.1 Chronic obstructive pulmonary disease with (acute) exacerbation; M87.052 Idiopathic aseptic necrosis of left femur; I25.2 Old myocardial infarction; E78.5 Hyperlipidemia, unspecified; E03.9 Hypothyroidism, unspecified; K21.9 Gastro-esophageal reflux disease without esophagitis; I10 Essential (primary) hypertension; Z86.69 Personal history of other diseases of the nervous system and sense organs; Z87.891 Personal history of nicotine dependence; Z79.899 Other long term (current) drug therapy; Z79.82 Long term (current) use of aspirin; Z88.5 Allergy status to narcotic agent; Z91.038 Other insect allergy status; Z91.030 Bee allergy status; Z86.79 Personal history of other diseases of the circulatory system; Z20.822 Contact with and (suspected) exposure to COVID-19; Z95.5 Presence of coronary angioplasty implant and graft; Z88.1 Allergy status to other antibiotic agents
CPT/HCPCS: 0241U; 71045; 74177; 80053; 82248; 84484; 85025; 93005; 93010; 94640; 94644; 96374; 96375; 99285-25; A9270; J1885; J2930; Q9967

== ENCOUNTER 2021-10-29 06:05 | Inpatient (IN) | payer OTHER ==
[~2021-10-29] VITALS: Ht 167.6 cm; Wt 105.6 kg
[~2021-10-29 06:05] MED LIST changes: +Prednisone20 MG PO; +Robaxin750 MG PO
[2021-10-29 06:43] LABS: BASOPHILS ABSOLUTE AUTO 0.09 K/mm3 (0.00-0.23); BASOPHILS PERCENT AUTO 1 % (0-2); EOSINOPHILS ABSOLUTE AUTO 1.79 K/mm3 (0.00-0.68); EOSINOPHILS PERCENT AUTO 13 % (0-6); Hematocrit 43.3 % (37.0-53.0); Hemoglobin 13.8 g/dL (13.5-17.5); IMMATURE GRAN ABSOLUTE AUTO 0.09 K/mm3 (0.00-0.10); IMMATURE GRAN PERCENT AUTO 1 % (0-1); LYMPHOCYTES ABSOLUTE AUTO 2.45 K/mm3 (0.84-5.20); LYMPHOCYTES PERCENT AUTO 18 % (21-46); MONOCYTES ABSOLUTE AUTO 0.85 K/mm3 (0.16-1.47); MONOCYTES PERCENT AUTO 6 % (4-13); Mean Corpuscular HGB 28.2 pg (26.0-34.0); Mean Corpuscular HGB Conc 31.9 g/dL (31.5-36.5); Mean Corpuscular Volume 89 fL (80-100); Mean Platelet Volume 8.9 fL (9.1-12.4); NEUTROPHILS ABSOLUTE AUTO 8.14 K/mm3 (1.96-9.15); NEUTROPHILS PERCENT AUTO 61 % (41-73); Platelet Count 363 K/mm3 (150-400); RDW Coefficient Variation 14.4 % (11.7-14.2); RDW Standard Deviation 46.6 fL (35.1-46.3); Red Blood Cell Count 4.89 M/mm3 (4.30-5.90); White Blood Cell Count 13.41 K/mm3 (4.00-11.30)
[2021-10-29 06:50] LABS: Anion Gap 10 mmol/L (6-16); Blood Urea Nitrogen 14 mg/dL (8-24); Bun/Creatinine Ratio 15.5 (12.0-20.0); CO2, Blood 26 mmol/L (21-32); Calcium, Blood 8.8 mg/dL (8.5-10.1); Chloride, Blood 102 mmol/L (98-108); Glomerular Filtration Rate >60 (60-); Glucose, Blood 171 mg/dL (70-99); Potassium, Blood 3.6 mmol/L (3.5-5.5); Sodium, Blood 138 mmol/L (136-145)
[2021-10-29 08:36] LABS: Influenza A, PCR NEGATIVE (NEGATIVE); Influenza B, PCR NEGATIVE (NEGATIVE); Resp Syncytial Virus, PCR NEGATIVE (NEGATIVE); SARS-Cov-2 (COVID-19) PCR, MMC NEGATIVE (NEGATIVE)
[2021-10-29] MEDS ORDERED: ANORO ELLIPTA1 EAC1 INH (15:24)
[2021-10-29] MEDS ORDERED: Flovent Disku250 MCG INH (15:25)
[2021-10-29] MEDS ORDERED: IPRAT-ALBUT 0.5-3 ML INH (15:27)
[2021-10-29] MEDS ORDERED: LEVE500 PO (15:28)
[2021-10-29] MEDS ORDERED: EUTHYROX50 MCG PO (15:29)
[2021-10-29] MEDS ORDERED: GABA100 PO (15:31)
[2021-10-29] MEDS ORDERED: STIOLTO RESPIMAT4 G1 INH (15:31)
--- NOTE | 2021-10-29 16:15 | NUR ---
66 YOM WITH PMHX OF COPD PRESENTS WITH SOB. INTUBATED IN ER. ON HOME OXYGEN AT 2L PER NC BUT HAS INCREASED TO 4L PER NC. INCREASED WOB TO PERFORM IADLS AND EVERYDAY TASKS. HAS CANE AND RW AT HOME. OXYGEN PROVIDED BY [facility]. LEFT VM MESSAGE WITH INTENSIVE CM WITH [facility] @ [phone] FOR F/U. PER DTR, PT HAS INCREASED NEED FOR HOME CAREGIVER SERVICES. PT RESIDES WITH MOTHER WHO HAS DEMENTIA AND IS DEAF AND RESIDES IN . OXYGENATION IS WORSENING ALONG WITH INCREASED HOME DEMANDS.
--- NOTE | 2021-10-29 17:56 | NUR ---
PATIENT ADMITTED [facility] FROM ED FOR COPD EXACERBATION. VSS, ON 2LO2 NOW AND AT BASELINE. LUNGS DIMINISHED, HARSH DRY COUGH. TREATMENTS PER RT. AMBULATES AT BASELINE WITH FWW. SKIN INTACT. 20G IV TO L AC WNL AND SL. PATIENT TOOK FLU VACCINATION ON ADMISSION. REPORTS CHRONIC PAIN, DENIES ANY NEED FOR PAIN MEDICATION. ORIENTED TO ROOM AND USE OF CALL LIGHT. PATIENT IS A/OX3, UNABLE TO STATE DATE. VERY PLEASANT AND COOPERATIVE WITH CARE. FALL PRECAUTIONS IN PLACE PER PROTOCOL.
--- NOTE | 2021-10-30 04:25 | NUR ---
SHIFT SUMMARY: PATIENT HAS A HARSH NON PRODUCTIVE COUGH. ON 2L NC, WHICH IS BASELINE. MAINTAINS SATS IN THE MID 90'S. CONTINUES TO HAVE SOB AND ANXIETY AFTER A COUGHING SPELL. NEB TREATMENTS PROVIDE GOOD EFFECT. UP TO THE BATHROOM WITH SBA AND FWW TO VOID. REPORTING CRONIC BACK PAIN, OXYCODONE WAS GIVEN WITH GOOD EFFECT.
[2021-10-30 05:35] LABS: Hematocrit 41.2 % (37.0-53.0); Hemoglobin 13.2 g/dL (13.5-17.5); Mean Corpuscular HGB 28.3 pg (26.0-34.0); Mean Corpuscular Volume 88 fL (80-100); Mean Platelet Volume 9.2 fL (9.1-12.4); Platelet Count 336 K/mm3 (150-400); RDW Coefficient Variation 14.6 % (11.7-14.2); RDW Standard Deviation 47.3 fL (35.1-46.3); Red Blood Cell Count 4.66 M/mm3 (4.30-5.90); White Blood Cell Count 20.54 K/mm3 (4.00-11.30)
--- NOTE | 2021-10-30 17:49 | NUR ---
SHIFT SUMMARY: PATIENT ALERT AND ORIENTED X 3, ABLE TO VERBALIZE NEEDS. CONTINUE TO HAVE A HARSH NON PRODUCTIVE COUGH. ON 2L NC, BASELINE. SATS IN THE MID 90'. SOB WITH EXERTION AND VERY UNSTEDY WHEN HE WALK TO THE BATHROOM. C/O ON LOWER PAIN PAIN, PRN MEDS ADMINISTRATED AND EFFECTIVE. CONTINUES ON IV STEROIDS AND PO LASIX.
--- NOTE | 2021-10-31 04:32 | NUR ---
SHIFT SUMMARY PATIENT HAD NO ACUTE CHANGES OBSERVED. AXOX 3 AND SBA W/FWW TO BR. SOB WITH EXERTION. ON 2L O2 NC. RT IN FOR BREATHING TX. ON IV SOLU-MEDROL. PIV REMAINS INTACT. REPORTED BACK PAIN AND OXYCODONE 5 MG GIVEN PER EMAR. VSS/AFEBRILE. WATCH TV FIRST PART OF SHIFT. CALL LIGHT IN REACH. BED IN LOWEST POSITION. WILL CONTINUE TO MONITOR UNTIL DAY SHIFT NURSE ASSUMES CARE.
[2021-10-31 05:17] LABS: BASOPHILS ABSOLUTE AUTO 0.03 K/mm3 (0.00-0.23); BASOPHILS PERCENT AUTO 0 % (0-2); EOSINOPHILS PERCENT AUTO 0 % (0-6); Hematocrit 40.2 % (37.0-53.0); IMMATURE GRAN ABSOLUTE AUTO 0.24 K/mm3 (0.00-0.10); IMMATURE GRAN PERCENT AUTO 1 % (0-1); LYMPHOCYTES ABSOLUTE AUTO 0.88 K/mm3 (0.84-5.20); LYMPHOCYTES PERCENT AUTO 4 % (21-46); MONOCYTES ABSOLUTE AUTO 0.48 K/mm3 (0.16-1.47); MONOCYTES PERCENT AUTO 2 % (4-13); Mean Corpuscular HGB 28.4 pg (26.0-34.0); Mean Corpuscular HGB Conc 32.3 g/dL (31.5-36.5); Mean Corpuscular Volume 88 fL (80-100); Mean Platelet Volume 9.2 fL (9.1-12.4); NEUTROPHILS ABSOLUTE AUTO 21.94 K/mm3 (1.96-9.15); NEUTROPHILS PERCENT AUTO 93 % (41-73); Platelet Count 350 K/mm3 (150-400); RDW Coefficient Variation 14.5 % (11.7-14.2); RDW Standard Deviation 46.5 fL (35.1-46.3); Red Blood Cell Count 4.58 M/mm3 (4.30-5.90); White Blood Cell Count 23.57 K/mm3 (4.00-11.30)
--- NOTE | 2021-10-31 18:23 | NUR ---
SHIFT SUMMARY: PATIENT ALERT AND ORIENTED X 3, ABLE TO VERBALIZE NEEDS. CONTINUE TO HAVE A HARSH NON PRODUCTIVE COUGH, LUNG SOUNDS COARSE. ON 2L NC, BASELINE. SATS IN THE MID 90'S. SOB WITH EXERTION. C/O PAIN TO LOWER BACK, PRN MEDICATION ADMINISTRATED AND EFFECTIVE. CONTINUES ON PO LASIX. NO ACUTE CHANGES TO REPORT DURING THIS SHIFT.
--- NOTE | 2021-11-01 04:17 | NUR ---
SHIFT SUMMARY PATIENT HAD NO ACUTE CHANGES. AXOX 3 AND ONE ASSIST TO BR. ON 2L O2 NC AND BASELINE. SOB WITH EXERTION. REPORTED BACK PAIN X ONE AND OXYCODONE 5 MG GIVEN PER EMAR. RT IN FOR BREATHING TX. PIV REMAINS INTACT. VSS/AFEBRILE. CALL LIGHT IN REACH. BED IN LOWEST POSITION. WILL CONTINUE TO MONITOR UNTIL DAY SHIFT NURSE ASSUMES CARE.
[2021-11-01 04:57] LABS: BASOPHILS ABSOLUTE AUTO 0.04 K/mm3 (0.00-0.23); BASOPHILS PERCENT AUTO 0 % (0-2); EOSINOPHILS PERCENT AUTO 0 % (0-6); Hematocrit 44.3 % (37.0-53.0); IMMATURE GRAN ABSOLUTE AUTO 0.38 K/mm3 (0.00-0.10); IMMATURE GRAN PERCENT AUTO 2 % (0-1); LYMPHOCYTES ABSOLUTE AUTO 0.86 K/mm3 (0.84-5.20); LYMPHOCYTES PERCENT AUTO 4 % (21-46); MONOCYTES ABSOLUTE AUTO 0.35 K/mm3 (0.16-1.47); MONOCYTES PERCENT AUTO 2 % (4-13); Mean Corpuscular HGB 27.8 pg (26.0-34.0); Mean Corpuscular HGB Conc 31.6 g/dL (31.5-36.5); Mean Corpuscular Volume 88 fL (80-100); Mean Platelet Volume 9.1 fL (9.1-12.4); NEUTROPHILS ABSOLUTE AUTO 19.51 K/mm3 (1.96-9.15); NEUTROPHILS PERCENT AUTO 92 % (41-73); Platelet Count 364 K/mm3 (150-400); RDW Coefficient Variation 14.5 % (11.7-14.2); RDW Standard Deviation 46.2 fL (35.1-46.3); Red Blood Cell Count 5.04 M/mm3 (4.30-5.90); White Blood Cell Count 21.14 K/mm3 (4.00-11.30)
[2021-11-01] MEDS ORDERED: GUAI600T33 PO (11:05)
[2021-11-01] MEDS ORDERED: DOCU100 PO (11:05)
[2021-11-01] MEDS ORDERED: MIRALAX17 GM PO (11:06)
--- NOTE | 2021-11-01 16:26 | NUR ---
PATIENT ASLEEP UPON ARRIVAL. DURING ASSESSMENT PATIENT SEEMED TO BE COOPERATIVE - TAKING PILLS, FOLLOWING DIRECTIONS. PATIENT ASPIRATED DURING LUNCH TIME, HEIMLICH MANEUVER PERFORMED ON PATIENT AND PASTA NOODLE DISLODGED FROM AIRWAY. GEAR SHAPER CONSULTED ON UPDATING PAPERWORK REFLECTING CURRENT ORDERS. MD NOTIFIED OF THE EVENT. CHEST XRAY ORDERED AND SPEECH EVALUATION ORDERED. RESULTS FROM XRAY WERE NEGATIVE. SPEECH THERAPY HAS DOWNGRADED PT'S DIET TO MECHANICAL SOFT.
== END 2021-11-01 17:50 | disposition home or self-care (01) | DRG 190 ==
LOC: ER 06:05 → ERHOLD 06:06 → MEDS 06:06 → ENPENDDIS 11-01 10:18 → MEDS 11-01 17:50
PROVIDERS: Family Medicine; Nurse Practitioner Acute Care; ADMIT Internal Medicine
DX: J44.1 Chronic obstructive pulmonary disease with (acute) exacerbation (principal); J96.21 Acute and chronic respiratory failure with hypoxia; I50.22 Chronic systolic (congestive) heart failure; Z68.41 Body mass index [BMI] 40.0-44.9, adult; F11.20 Opioid dependence, uncomplicated; E66.01 Morbid (severe) obesity due to excess calories; Z23 Encounter for immunization; I11.0 Hypertensive heart disease with heart failure; M54.9 Dorsalgia, unspecified; G89.29 Other chronic pain; G40.909 Epilepsy, unspecified, not intractable, without status epilepticus; E03.9 Hypothyroidism, unspecified; K21.9 Gastro-esophageal reflux disease without esophagitis; I25.10 Atherosclerotic heart disease of native coronary artery without angina pectoris; Z91.030 Bee allergy status; Z88.5 Allergy status to narcotic agent; Z88.1 Allergy status to other antibiotic agents; Z79.82 Long term (current) use of aspirin; Z79.52 Long term (current) use of systemic steroids; Z79.899 Other long term (current) drug therapy; Z95.5 Presence of coronary angioplasty implant and graft; Z98.890 Other specified postprocedural states; Z90.49 Acquired absence of other specified parts of digestive tract; Z87.891 Personal history of nicotine dependence; Z99.81 Dependence on supplemental oxygen
CPT/HCPCS: 0241U; 36415; 71045; 80048; 84484; 85025; 85027; 90686; 92610; 93005; 93010; 94640; 94644; 94664; 94760; 94761; 96365; 96372; 96375; 96376; 97116; 97161; 99285-25; A9270; G0008; G0378; J0456; J1650; J2930; J7050

== ENCOUNTER 2022-01-01 23:34 | Emergency (ER) | payer OTHER ==
[~2022-01-01] VITALS: Ht 188 cm; Wt 122.5 kg
[~2022-01-01 23:34] MED LIST changes: +AMOCLA875 PO; +ANORO ELLIPTA1 EAC1 INH; +DOCU100 PO; +EUTHYROX50 MCG PO; +Flovent Disku250 MCG INH; +GABA100 PO; +GUAI600T33 PO; +IPRAT-ALBUT 0.5-3 ML INH; +MIRALAX17 GM PO; +STIOLTO RESPIMAT4 G1 INH
[2022-01-01 23:50] LABS: BASOPHILS ABSOLUTE AUTO 0.02 K/mm3 (0.00-0.23); BASOPHILS PERCENT AUTO 0 % (0-2); EOSINOPHILS PERCENT AUTO 5 % (0-6); Hematocrit 41.1 % (37.0-53.0); Hemoglobin 12.8 g/dL (13.5-17.5); IMMATURE GRAN ABSOLUTE AUTO 0.08 K/mm3 (0.00-0.10); IMMATURE GRAN PERCENT AUTO 1 % (0-1); LYMPHOCYTES ABSOLUTE AUTO 1.06 K/mm3 (0.84-5.20); LYMPHOCYTES PERCENT AUTO 10 % (21-46); MONOCYTES ABSOLUTE AUTO 0.44 K/mm3 (0.16-1.47); MONOCYTES PERCENT AUTO 4 % (4-13); Mean Corpuscular HGB 27.9 pg (26.0-34.0); Mean Corpuscular HGB Conc 31.1 g/dL (31.5-36.5); Mean Corpuscular Volume 90 fL (80-100); Mean Platelet Volume 9.3 fL (9.1-12.4); NEUTROPHILS ABSOLUTE AUTO 8.72 K/mm3 (1.96-9.15); NEUTROPHILS PERCENT AUTO 81 % (41-73); Platelet Count 297 K/mm3 (150-400); RDW Coefficient Variation 15.5 % (11.7-14.2); Red Blood Cell Count 4.58 M/mm3 (4.30-5.90); White Blood Cell Count 10.82 K/mm3 (4.00-11.30)
[2022-01-02 00:02] LABS: Albumin, Blood 3.8 g/dL (3.4-5.0); Albumin/Globulin Ratio 1.2 (0.8-1.8); Bilirubin, Total 1.5 mg/dL (0.1-1.0); Bun/Creatinine Ratio 17.1 (12.0-20.0); Calcium, Blood 8.7 mg/dL (8.5-10.1); Creatinine, Blood 1.29 mg/dL (0.60-1.20); Globulin, Blood 3.2 g/dL (2.2-4.0); Potassium, Blood 3.9 mmol/L (3.5-5.5)
== END 2022-01-02 03:33 | disposition home or self-care (01) ==
LOC: ER 23:34
PROVIDERS: Student in an Organized Health Care Education/Training Program
DX: R07.2 Precordial pain (principal); R06.2 Wheezing; Z79.899 Other long term (current) drug therapy; J44.9 Chronic obstructive pulmonary disease, unspecified; E03.9 Hypothyroidism, unspecified; K21.9 Gastro-esophageal reflux disease without esophagitis; I11.0 Hypertensive heart disease with heart failure; I50.9 Heart failure, unspecified
CPT/HCPCS: 36415; 70450; 71045; 72125; 80053; 83880; 84484; 85025; 93005; 93010; 94644; 94645; 94664; 96374; 99285-25

== ENCOUNTER 2022-01-09 01:49 | Emergency (ER) | payer OTHER ==
[~2022-01-09] VITALS: Ht 167.6 cm; Wt 113.4 kg
== END 2022-01-09 03:32 | disposition home or self-care (01) ==
LOC: ER 01:49
DX: K59.00 Constipation, unspecified (principal); I50.9 Heart failure, unspecified; J44.9 Chronic obstructive pulmonary disease, unspecified; Z87.891 Personal history of nicotine dependence; Z79.82 Long term (current) use of aspirin; Z79.899 Other long term (current) drug therapy; Z79.52 Long term (current) use of systemic steroids
CPT/HCPCS: 99283